=== PATIENT | female | born 1970 | race Two or more races ===

== ENCOUNTER 2023-04-03 08:33 | Outpatient (AMB) | payer OTHER, SELFPAY ==
--- NOTE | 2023-04-03 08:34 | A.OFFVIS_ITS ---
Intake Intake Visit Reasons: Renal Cyst Intake Note: New Patient presents for initial visit for renal cyst Urology Medications: none Blood Thinner: aspirin, clopidogrel Audio Production Engineer Required: Yes Audio Production Engineer Name: MANUEL MEDEIROS VIELKA Accompanied by: Spouse Allergies dulaglutide Allergy (Verified 04/03/23 11:39) pancreatitis morphine Allergy (Verified 04/03/23 11:39) headache, nausea, vomiting metformin Adverse Reaction (Verified 04/03/23 11:39) Diarrhea Medication List - Last Reconciled 04/03/23 by GORDON Sousa- buspirone 5 mg PO BID carvedilol 25 mg PO BID clopidogrel 75 mg PO DAILY dulaglutide (Trulicity) mg subcut empagliflozin (Jardiance) 10 mg PO DAILY escitalopram oxalate mg PO glipizide 10 mg PO DAILY insulin regular hum U-500 conc (Humulin R U-500 (Conc) Insulin Kwikpen) units subcut levothyroxine 88 mcg PO DAILY metoclopramide HCl 5 mg PO QID pantoprazole 40 mg PO DAILY pregabalin 75 mg PO TID valsartan mg PO HPI HPI Comments History of Present Illness Details Asia is a pleasant 52 year old Bhutanese speaking female patient of Dr. Cabezas who was accompanied by her significant other at today's office visit. She has a past medical history of obesity, recurrent incisional hernias, NSTEMI, insomnia, hypothyroidism, hypertension, hyperlipidemia, GERD, fibromyalgia, diabetes, CVA, coronary artery disease, and carpal tunnel syndrome. She presents to the office today as a new patient for renal cyst. Discussion with the patient today she reports previously following up with [facility] for her longstanding history of nephrolithiasis and renal cyst. In review of patient's chart it appears last MRI was obtain 09/23/2022 noting 1.4 cm complex left upper pole cystic renal lesion consistent with Bosniak 2 F cystic renal mass. Follow-up MRI recommended every 6 months to evaluate for morphologic changes. Patient reports follow-up MRI is scheduled for this Thursday 04/05 at [facility]. She discusses at length her uncontrolled diabetes in following up with her PCP for insulin pump. When asked she reports urinary frequency, urinary urgency, and episodes of incontinence if not near a bathroom. Discussed pelvic floor therapy. Patient reports to be performing pelvic floor therapy exercises at home. She otherwise denies nocturia, hematuria, dysuria, foul smelling urine, changes to urinary stream, flank pain, fever, and or chills. In office urinalysis results reviewed with the patient today. Discussed glucosuria and proteinuria. Will refer to Nephrology. Discussed at length renal cysts classification and importance of surveillance monitoring. [facility] Medical History delivery delivered Severe obesity (BMI 35.0-39.9) with comorbidity Recurrent incisional hernia Intraductal papilloma of right breast NSTEMI (non-ST elevated myocardial infarction) Insomnia Hypothyroid HTN (hypertension) HLD (hyperlipidemia) GERD (gastroesophageal reflux disease) Fibromyalgia Diabetes mellitus CVA (cerebral vascular accident) CTS (carpal tunnel syndrome) CAD (coronary artery disease) Surgical History (Updated 04/03/23 @ 11:15 by Tayler Oscar) History of hernia repair History of back surgery History of hysteroscopy S/P laparoscopy with lysis of adhesions History of total abdominal hysterectomy H/O heart surgery Stented coronary artery Review of Systems Eyes Reports no additional complaints ENT Reports no additional complaints Card Reports as per HPI Resp Reports no additional complaints GI Reports as per HPI Reports as per HPI Musc Reports as per HPI Neuro Reports as per HPI Psych Reports no additional complaints Endo Reports as per HPI Physical Exam Const General: cooperative, comfortable, no acute distress, well developed, alert and awake Nutritional Appearance: overweight Orientation/consciousness: patient oriented x3 Limitations: no limitations HEENT Head: Yes normal to inspection, Yes normocephalic and Yes atraumatic Ears: hearing grossly normal bilaterally Eyes General: appearance normal, both eyes and all related structures Neck Neck: Yes normal visual inspection and Yes trachea midline Chest Chest palpation & inspection: normal inspection of the chest Resp Effort & Inspection: normal respiratory effort and able to speak in complete sentences Cardio Rate: regular rate GI Inspection: Yes normal to inspection General: Yes no CVA tenderness Back/Spine/Pelvis Back: no CVA tenderness Skin General skin exam: no rashes or lesions noted Neuro General: patient oriented x3 Extrem General: Yes normal to inspection Psych Appearance: grossly normal and well kempt Mental Status: mental status grossly normal Speech and movement: Normal speech and movement present and Clear speech present Affect: normal affect Attitude: cooperative Thought process: Normal thought process present Thought content: Normal thought content present Insight: Fair insight present (Psych) Judgement: Fair judgement present (Psych) Results AMB Urinalysis, Automated UA Leukoctes 70 Annelise/uL Last Edit by Tayler Oscar on 04/03/23 11:08 UA Nitrite Negative Last Edit by Tayler Oscar on 04/03/23 11:08 UA Urobilinogen 0.2 mg/dL Last Edit by Tayler Oscar on 04/03/23 11:08 UA Protein 30 mg/dL Last Edit by Tayler Oscar on 04/03/23 11:08 UA pH 6.0 Last Edit by Tayler Oscar on 04/03/23 11:08 UA Blood 0 Albino/uL Last Edit by Tayler Oscar on 04/03/23 11:08 UA Specific [place] 1.030 Last Edit by Tayler Oscar on 04/03/23 11:08 UA Ketone Positive Last Edit by Tayler Oscar on 04/03/23 11:08 UA Bilirubin 1 mg/dL Last Edit by Tayler Oscar on 04/03/23 11:08 UA Glucose 500 mg/dL Last Edit by Tayler Oscar on 04/03/23 11:08 Results Reviewed Results Reviewed: Laboratory Last Values Urine pH (Auto) 6.0 04/03/23 10:59 Specific [place] (Auto) 1.030 04/03/23 10:59 Urine Protein (Auto) 30 mg/dL 04/03/23 10:59 Glucose (UA)(Auto) 500 mg/dL 04/03/23 10:59 Urine Ketones (Auto) Positive 04/03/23 10:59 Urine Blood (Auto) 0 Albino/uL 04/03/23 10:59 Urine Nitrite (Auto) Negative 04/03/23 10:59 Urine Bilirubin (Auto) 1 mg/dL 04/03/23 10:59 Urine Urobilinogen (Auto) 0.2 mg/dL 04/03/23 10:59 Leukocyte Esterase (Auto) 70 Annelise/uL 04/03/23 10:59 Assessment & Plan Assessment & Plan (1) Renal cyst: Code(s): N28.1 - Cyst of kidney, acquired (2) Renal mass: Code(s): N28.89 - Other specified disorders of kidney and ureter (3) Lower urinary tract symptoms: Code(s): R39.9 - Unspecified symptoms and signs involving the genitourinary system (4) Nephrolithiasis: Code(s): N20.0 - Calculus of kidney Plan In office urinalysis results reviewed with the patient today; as noted above; will refer to Nephrology Continue to follow-up with PCP for management of diabetes Discussed, stress, and encouraged to drink plenty of water daily Discussed and stressed the importance of managing diabetes for improvement lower urinary tract symptoms as well as overall health and well-being. Discussed continuation of pelvic floor therapy exercises at home Will follow-up in 2 weeks after MRI is completed for further assessment nikos luation. Discussed at length classifications of renal cysts and further surveillance monitoring and treatment options Follow-up in 2 weeks with MRI to be completed as scheduled; or sooner with any i ssues, concerns, and or questions. Orders: Orders AMB Urinalysis Automated Today Z13.9 - Encounter for screening, unspecified Referrals Nephrology Referral E11.9 - Type 2 diabetes mellitus without complications, R80.9 - Proteinuria, unspecified Patient Instructions: The patient had an opportunity to ask questions regarding the treatment plan. All questions were answered. Physical exam, labs, and imaging were discussed and reviewed in detail. As well as risks, benefits, and discussion of treatment choices. No major barriers to understanding were identified. The patient expressed understanding and agreement with the above treatment plan. The patient was made aware they should contact our office by phone for worsening of their current condition, the appearance of new symptoms, or with any questions or concerns. Compliance is encouraged with any medications and follow up testing that is ordered. It is a privilege to be allowed the opportunity to participate in? your urological care.? Again, if you have any questions or concerns If you have any questions or concerns please do not hesitate to contact me. The office is [phone]. This note is constructed using voice recognition software. While every effort has been made to ensure accuracy religious activities director errors may have been included. Yours sincerely, ELVIS Sousa Coding Level of Care Code New Pt Level 3 (87138) Diagnoses Renal cyst N28.1 Renal mass N28.89 Lower urinary tract symptoms R39.9 Nephrolithiasis N20.0
== END 2023-04-03 09:36 | disposition home or self-care (01) ==
PROVIDERS: PCP Family Medicine; Visit Provider Nurse Practitioner Family
DX: N28.1 Cyst of kidney, acquired (principal); N28.89 Other specified disorders of kidney and ureter; R39.9 Unspecified symptoms and signs involving the genitourinary system; N20.0 Calculus of kidney
CPT/HCPCS: 99203

== ENCOUNTER → 2023-04-03 08:33 | Outpatient (BNVA) | payer OTHER, SELFPAY | PROVIDERS: PCP Family Medicine; Visit Provider Nurse Practitioner Family | DX: N28.1 Cyst of kidney, acquired (principal); N20.0 Calculus of kidney; R39.9 Unspecified symptoms and signs involving the genitourinary system | CPT/HCPCS: 81003; 99202 ==

== ENCOUNTER 2023-04-18 13:08 | Outpatient (AMB) | payer OTHER, SELFPAY ==
--- NOTE | 2023-04-18 13:25 | A.OFFVIS_ITS ---
Intake Intake Visit Reasons: 2w/MRI Intake Note: Patient presents for follow up visit for renal cyst/MRI ([facility]) Urology Medications: none Blood Thinner: aspirin, clopidogrel Plant Operations Manager Required: No Accompanied by: Spouse Allergies dulaglutide Allergy (Verified 04/18/23 14:54) pancreatitis morphine Allergy (Verified 04/18/23 14:54) headache, nausea, vomiting metformin Adverse Reaction (Verified 04/18/23 14:54) Diarrhea Medication List - Last Reconciled 04/18/23 by VALERIANO SousaP- buspirone 5 mg PO BID carvedilol 25 mg PO BID clopidogrel 75 mg PO DAILY escitalopram oxalate mg PO glipizide 10 mg PO DAILY insulin regular hum U-500 conc (Humulin R U-500 (Conc) Insulin Kwikpen) units subcut levothyroxine 88 mcg PO DAILY metoclopramide HCl 5 mg PO QID pantoprazole 40 mg PO DAILY pregabalin 75 mg PO TID valsartan mg PO HPI HPI Comments History of Present Illness Details Asia is a pleasant 52 year old female patient of Dr. Cabezas who was accompanied by her significant other at today's office visit. She has a past medical history of obesity, recurrent incisional hernias, NSTEMI, insomnia, hypothyroidism, hypertension, hyperlipidemia, GERD, fibromyalgia, diabetes, CVA, coronary artery disease, and carpal tunnel syndrome. She presents to the office today for follow-up of her renal cyst. Of note, patient was seen approximately 3 weeks ago as a new patient for renal cyst at which time she underwent MRI for further assessment evaluation of her renal cyst. These results were reviewed with the patient today. Unchanged complex cystic lesion in the upper pole of the left kidney measuring up to 1.4 cm most compatible with a Bosniak 2 F lesion. Discussed surveillance monitoring. Patient discusses having previously followed up with [facility]. In review of patient's chart it appears MRI from 09/23/2022 noting 1.4 cm complex left upper pole cystic renal lesion consistent with Bosniak 2 F cystic renal lesion. Discussed imaging remains stable and recommendations are for surveillance monitoring every 6 months. She reports noting better control of her diabetes since her last office visit here approximately 2 weeks ago. During last office visit referral was made to Nephrology due to proteinuria however patient does not exhibit proteinuria on urinalysis today. She reports following up with Nephrology later this week. She otherwise denies any bothersome urinary issues or concerns. She denies nocturia, hematuria, dysuria, foul smelling urine, changes to urinary stream, flank pain, fever, and or chills. In office urinalysis results reviewed with the patient today. Will refer to Nephrology. Discussed at length renal cysts classification and importance of surveillance monitoring. [facility] Medical History (Reviewed 04/18/23 @ 15:12 by [facility] delivery delivered Severe obesity (BMI 35.0-39.9) with comorbidity Recurrent incisional hernia Intraductal papilloma of right breast NSTEMI (non-ST elevated myocardial infarction) Insomnia Hypothyroid HTN (hypertension) HLD (hyperlipidemia) GERD (gastroesophageal reflux disease) Fibromyalgia Diabetes mellitus CVA (cerebral vascular accident) CTS (carpal tunnel syndrome) CAD (coronary artery disease) Surgical History History of hernia repair History of back surgery History of hysteroscopy S/P laparoscopy with lysis of adhesions History of total abdominal hysterectomy H/O heart surgery Stented coronary artery Review of Systems Eyes Reports no additional complaints ENT Reports no additional complaints Card Reports as per HPI Resp Reports no additional complaints GI Reports as per HPI Reports as per HPI Musc Reports as per HPI Neuro Reports as per HPI Psych Reports no additional complaints Endo Reports as per HPI Physical Exam Const General: cooperative, comfortable, no acute distress, well developed, alert and awake Nutritional Appearance: overweight Orientation/consciousness: patient oriented x3 Limitations: no limitations HEENT Head: Yes normal to inspection, Yes normocephalic and Yes atraumatic Ears: hearing grossly normal bilaterally Eyes General: appearance normal, both eyes and all related structures Neck Neck: Yes normal visual inspection and Yes trachea midline Chest Chest palpation & inspection: normal inspection of the chest Resp Effort & Inspection: normal respiratory effort and able to speak in complete sentences Cardio Rate: regular rate GI Inspection: Yes normal to inspection General: Yes no CVA tenderness Back/Spine/Pelvis Back: no CVA tenderness Skin General skin exam: no rashes or lesions noted Neuro General: patient oriented x3 Extrem General: Yes normal to inspection Psych Appearance: grossly normal and well kempt Mental Status: mental status grossly normal Speech and movement: Normal speech and movement present and Clear speech present Affect: normal affect Attitude: cooperative Thought process: Normal thought process present Thought content: Normal thought content present Insight: Fair insight present (Psych) Judgement: Fair judgement present (Psych) Results AMB Urinalysis, Automated UA Leukoctes 0 Annelise/uL Last Edit by GameDuell on 04/18/23 13:42 UA Nitrite Positive Last Edit by GameDuell on 04/18/23 13:42 UA Urobilinogen 0.2 mg/dL Last Edit by GameDuell on 04/18/23 13:42 UA Protein 0 mg/dL Last Edit by GameDuell on 04/18/23 13:42 UA pH 5.5 Last Edit by GameDuell on 04/18/23 13:42 UA Blood 0 Albino/uL Last Edit by GameDuell on 04/18/23 13:42 UA Specific [place] 1.010 Last Edit by GameDuell on 04/18/23 13:42 UA Ketone Positive Last Edit by GameDuell on 04/18/23 13:42 UA Bilirubin 0 mg/dL Last Edit by GameDuell on 04/18/23 13:42 UA Glucose 1000 mg/dL Last Edit by GameDuell on 04/18/23 13:42 Results Reviewed Results Reviewed: Laboratory Last Values Urine pH (Auto) 5.5 04/18/23 13:31 Specific [place] (Auto) 1.010 04/18/23 13:31 Urine Protein (Auto) 0 mg/dL 04/18/23 13:31 Glucose (UA)(Auto) 1000 mg/dL 04/18/23 13:31 Urine Ketones (Auto) Positive 04/18/23 13:31 Urine Blood (Auto) 0 Albino/uL 04/18/23 13:31 Urine Nitrite (Auto) Positive 04/18/23 13:31 Urine Bilirubin (Auto) 0 mg/dL 04/18/23 13:31 Urine Urobilinogen (Auto) 0.2 mg/dL 04/18/23 13:31 Leukocyte Esterase (Auto) 0 Annelise/uL 04/18/23 13:31 Assessment & Plan Assessment & Plan (1) Nephrolithiasis: Code(s): N20.0 - Calculus of kidney (2) Renal mass: Code(s): N28.89 - Other specified disorders of kidney and ureter (3) Renal cyst: Code(s): N28.1 - Cyst of kidney, acquired (4) Lower urinary tract symptoms: Code(s): R39.9 - Unspecified symptoms and signs involving the genitourinary system Plan In office urinalysis results reviewed with the patient today; as noted above Discussed, stress, and encouraged to drink plenty of water daily. Discussed and stressed the importance of managing diabetes for improvement lower urinary tract symptoms as well as overall health and well-being. Discussed continuation of pelvic floor therapy exercises at home Renal ultrasound in 6 months Discussed at length classifications of renal cysts and further surveillance reubenтатьяна arguello and treatment options Follow-up in 6 months with imaging to be completed prior; or sooner with any issues, concerns, and or questions. Orders: Orders AMB Urinalysis Automated Today Z13.9 - Encounter for screening, unspecified US renal BI 6 Months N20.0 - Calculus of kidney, N28.1 - Cyst of kidney, acquired, N28.89 - Other specified disorders of kidney and ureter Patient Instructions: The patient had an opportunity to ask questions regarding the treatment plan. All questions were answered. Physical exam, labs, and imaging were discussed and reviewed in detail. As well as risks, benefits, and discussion of treatment choices. No major barriers to understanding were identified. The patient expressed understanding and agreement with the above treatment plan. The patient was made aware they should contact our office by phone for worsening of their current condition, the appearance of new symptoms, or with any questions or concerns. Compliance is encouraged with any medications and follow up testing that is ordered. It is a privilege to be allowed the opportunity to participate in? your urological care.? Again, if you have any questions or concerns If you have any questions or concerns please do not hesitate to contact me. The office is [phone]. This note is constructed using voice recognition software. While every effort has been made to ensure accuracy senior account executive errors may have been included. Yours sincerely, ELVIS Sousa Coding Level of Care Code Est Pt Level 3 (12970) Diagnoses Nephrolithiasis N20.0 Renal mass N28.89 Renal cyst N28.1 Lower urinary tract symptoms R39.9
== END 2023-04-18 14:11 | disposition home or self-care (01) ==
PROVIDERS: PCP Family Medicine; Visit Provider Nurse Practitioner Family
DX: N20.0 Calculus of kidney (principal); N28.89 Other specified disorders of kidney and ureter; N28.1 Cyst of kidney, acquired; R39.9 Unspecified symptoms and signs involving the genitourinary system; Z13.9 Encounter for screening, unspecified
CPT/HCPCS: 99213

== ENCOUNTER → 2023-04-18 13:08 | Outpatient (BNVA) | payer OTHER, SELFPAY | PROVIDERS: PCP Family Medicine; Visit Provider Nurse Practitioner Family | DX: N20.0 Calculus of kidney (principal); N28.89 Other specified disorders of kidney and ureter; N28.1 Cyst of kidney, acquired; R39.9 Unspecified symptoms and signs involving the genitourinary system | CPT/HCPCS: 81003; 99212 ==

== ENCOUNTER 2023-04-19 10:26 | Outpatient (AMB) | payer OTHER, SELFPAY ==
--- NOTE | 2023-04-19 10:33 | HO.NEPHOV ---
HPI HPI Comments History of Present Illness Details Asia is a pleasant middle-aged woman with a history of diabetes mellitus since 2004, referred for evaluation of proteinuria and renal cyst. Blood sugar has been suboptimally controlled. The last A1c was 10.2 back in June of 2022. She is waiting for a insulin pump in the next few weeks. She was seen by Urology recently for the renal cyst. MRA showed a cyst on the left kidney which is being evaluated. Routine workup revealed the dipstick positive proteinuria. She is on valsartan 80 mg the last few years. [facility] Medical History delivery delivered Severe obesity (BMI 35.0-39.9) with comorbidity Recurrent incisional hernia Intraductal papilloma of right breast NSTEMI (non-ST elevated myocardial infarction) Insomnia Hypothyroid HTN (hypertension) HLD (hyperlipidemia) GERD (gastroesophageal reflux disease) Fibromyalgia Diabetes mellitus CVA (cerebral vascular accident) CTS (carpal tunnel syndrome) CAD (coronary artery disease) Surgical History History of hernia repair History of back surgery History of hysteroscopy S/P laparoscopy with lysis of adhesions History of total abdominal hysterectomy H/O heart surgery Stented coronary artery Vital Signs 04/19/23 10:34 Height 5 ft 2 in Weight 201 lb BMI 36.8 BP 122/80 Blood Pressure Location Lt brachial Position Sitting Pulse 87 Pulse Source Pulse Oximeter Pulse Oximetry (%) 98 Oxygen Delivery Method Room Air Physical Exam Vital Signs: Last Vital Signs Pulse 87 04/19/23 10:34 BP 122/80 04/19/23 10:34 Pulse Ox 98 04/19/23 10:34 Oxygen Delivery Method Room Air 04/19/23 10:34 BMI result Body Mass Index 36.8 Const General: comfortable Nutritional Appearance: well nourished Orientation/consciousness: patient oriented x3 HEENT Head: No normal to inspection Mouth: moist mucous membranes Neck Neck: Yes supple and Yes no JVD Resp Auscultation: clear to auscultation bilaterally, no rales and rub present Cardio Jugular venous distension: no JVD Palpation: no palpable S3 and no palpable S4 Heart sounds: no rubs GI Palpation (GI): Soft to palpation and nontender Percussion: No Fluid wave present General: Yes no CVA tenderness Back/Spine/Pelvis Back: no CVA tenderness Skin General skin exam: no rashes or lesions noted Neuro General: patient oriented x3 Extrem General: Yes no pedal edema and No clubbing Assessment & Plan Assessment & Plan (1) Renal cyst: Code(s): N28.1 - Cyst of kidney, acquired (2) Proteinuria: Code(s): R80.9 - Proteinuria, unspecified Plan Middle-aged woman with a longstanding history of diabetes mellitus and obesity has minimal proteinuria. Proteinuria is most likely due to underlying diabetic kidney disease. Obesity could also be playing a role. No renal function stable with a serum creatinine 0.6 mg/dL. The goal is to slow the progression of renal disease. I have discussed importance of controlling blood sugar and to maintain hemoglobin A1c less than 7%. We also discussed weight loss and have encouraged her to increase her physical activity and to cut back on her carbohydrate intake. I will recheck the urine for protein creatinine ratio. At this time the blood pressure seems well controlled. She should stay on alow-sodium diet. I would continue with the valsartan for renal protection and dose can be titrated upwards gradually based on the blood pressure. Renal cyst. Continue follow-up with Urology Answered all her questions and reassured her. We will continue to follow her closely along with the team. Orders: Orders Creatinine 6 Weeks N28.1 - Cyst of kidney, acquired, R80.9 - Proteinuria, unspecified Total Protein Urine Random 6 Weeks N28.1 - Cyst of kidney, acquired, R80.9 - Proteinuria, unspecified Electrolytes 6 Weeks N28.1 - Cyst of kidney, acquired, R80.9 - Proteinuria, unspecified Blood Urea Nitrogen 6 Weeks N28.1 - Cyst of kidney, acquired, R80.9 - Proteinuria, unspecified Calcium 6 Weeks N28.1 - Cyst of kidney, acquired, R80.9 - Proteinuria, unspecified Creatinine Urine 6 Weeks N28.1 - Cyst of kidney, acquired, R80.9 - Proteinuria, unspecified UA and rflx microscopic 6 Weeks N28.1 - Cyst of kidney, acquired, R80.9 - Proteinuria, unspecified Coding Level of Care Code New Pt Level 4 (26761) Diagnoses Renal cyst N28.1 Proteinuria R80.9 Results Reviewed Results Reviewed: MRA results from March 2023 was reviewed. Left kidney with complex cyst Recent serum creatinine 0.6. Serum electrolyte with normal. Nephrology Results: No Data to Display
[2023-04-19 10:34] VITALS: BP 122/80; PULSE 87; O2SAT 98; BMI 36.8
== END 2023-04-19 11:06 | disposition home or self-care (01) ==
PROVIDERS: PCP Family Medicine; Visit Provider Internal Medicine Hypertension Specialist
DX: N28.1 Cyst of kidney, acquired (principal); R80.9 Proteinuria, unspecified
CPT/HCPCS: 99204

== ENCOUNTER → 2023-04-19 10:26 | Outpatient (BNVA) | payer OTHER, SELFPAY | PROVIDERS: PCP Family Medicine; Visit Provider Internal Medicine Hypertension Specialist | DX: N28.1 Cyst of kidney, acquired (principal); R80.9 Proteinuria, unspecified | CPT/HCPCS: 99202 ==

== ENCOUNTER 2023-06-07 10:37 | Outpatient (AMB) | payer OTHER, SELFPAY ==
[2023-06-07 10:56] VITALS: BP 122/80; PULSE 80; O2SAT 97; BMI 36.6
--- NOTE | 2023-06-07 10:56 | HO.NEPHOV_ITS ---
HPI HPI Comments History of Present Illness Details Asia is a pleasant middle-aged woman with a history of diabetes mellitus since 2004, referred for evaluation of proteinuria and renal cyst. Blood sugar has been suboptimally controlled. The last A1c was 10.2 back in June of 2022. She is waiting for a insulin pump in the next few weeks. She was seen by Urology recently for the renal cyst. MRi showed a cyst on the left kidney which is being evaluated. Routine workup revealed the dipstick positive proteinuria. She is on valsartan 80 mg the last few years. [facility] Medical History delivery delivered Severe obesity (BMI 35.0-39.9) with comorbidity Recurrent incisional hernia Intraductal papilloma of right breast NSTEMI (non-ST elevated myocardial infarction) Insomnia Hypothyroid HTN (hypertension) HLD (hyperlipidemia) GERD (gastroesophageal reflux disease) Fibromyalgia Diabetes mellitus CVA (cerebral vascular accident) CTS (carpal tunnel syndrome) CAD (coronary artery disease) Surgical History History of hernia repair History of back surgery History of hysteroscopy S/P laparoscopy with lysis of adhesions History of total abdominal hysterectomy H/O heart surgery Stented coronary artery Social History (Updated 06/07/23 @ 11:04 by Irene Santana) Alcohol intake: former Patient Tobacco Use Status: Former Tobacco user Vital Signs 06/07/23 10:56 Height 5 ft 2 in Weight 200 lb BMI 36.6 BP 122/80 Blood Pressure Location Lt brachial Position Sitting Pulse 80 Pulse Source Pulse Oximeter Pulse Oximetry (%) 97 Oxygen Delivery Method Room Air Physical Exam Vital Signs: Last Vital Signs Pulse 80 06/07/23 10:56 BP 122/80 06/07/23 10:56 Pulse Ox 97 06/07/23 10:56 Oxygen Delivery Method Room Air 06/07/23 10:56 BMI result Body Mass Index 36.6 Const General: comfortable Nutritional Appearance: well nourished Orientation/consciousness: patient oriented x3 HEENT Head: No normal to inspection Mouth: moist mucous membranes Neck Neck: Yes supple and Yes no JVD Resp Auscultation: clear to auscultation bilaterally, no rales and rub present Cardio Jugular venous distension: no JVD Palpation: no palpable S3 and no palpable S4 Heart sounds: no rubs GI Palpation (GI): Soft to palpation and nontender Percussion: No Fluid wave present General: Yes no CVA tenderness Back/Spine/Pelvis Back: no CVA tenderness Skin General skin exam: no rashes or lesions noted Neuro General: patient oriented x3 Extrem General: Yes no pedal edema and No clubbing Assessment & Plan Assessment & Plan (1) Renal cyst: Code(s): N28.1 - Cyst of kidney, acquired (2) Proteinuria: Code(s): R80.9 - Proteinuria, unspecified Plan Middle-aged woman with a longstanding history of diabetes mellitus and obesity has minimal proteinuria. Minimal Proteinuria is most likely due to underlying diabetic kidney disease. Obesity could also be playing a role. The renal function stable with a serum creatinine 0.6 mg/dL. The goal is to slow the progression of renal disease. I have discussed importance of controlling blood sugar and to maintain hemoglobin A1c less than 7%. We also discussed weight loss and have encouraged her to increase her physical activity and to cut back on her carbohydrate intake. Follow urine for protein creatinine ratio. At this time the blood pressure seems well controlled. She should stay on a low-sodium diet. I would continue with the valsartan for renal protection and dose can be titrated upwards gradually based on the blood pressure. Renal cyst. Continue follow-up with Urology We will continue to follow her closely along with the team. Orders: Orders Creatinine 6 Months N20.0 - Calculus of kidney, N28.1 - Cyst of kidney, acquired UA and rflx microscopic 6 Months N20.0 - Calculus of kidney, N28.1 - Cyst of kidney, acquired Electrolytes 6 Months N20.0 - Calculus of kidney, N28.1 - Cyst of kidney, acquired Blood Urea Nitrogen 6 Months N20.0 - Calculus of kidney, N28.1 - Cyst of kidney, acquired Calcium 6 Months N20.0 - Calculus of kidney, N28.1 - Cyst of kidney, acquired Total Protein Urine Random 6 Months N20.0 - Calculus of kidney, N28.1 - Cyst of kidney, acquired Creatinine Urine 6 Months N20.0 - Calculus of kidney, N28.1 - Cyst of kidney, acquired Urine Cytology 6 Months N20.0 - Calculus of kidney, N28.1 - Cyst of kidney, acquired Coding Level of Care Code Est Pt Level 4 (75590) Diagnoses Renal cyst N28.1 Proteinuria R80.9 Results Reviewed Nephrology Results: No Data to Display
== END 2023-06-07 11:13 | disposition home or self-care (01) ==
PROVIDERS: PCP Family Medicine; Visit Provider Internal Medicine Hypertension Specialist
DX: N28.1 Cyst of kidney, acquired (principal); R80.9 Proteinuria, unspecified
CPT/HCPCS: 99214

== ENCOUNTER → 2023-06-07 10:37 | Outpatient (BNVA) | payer OTHER, SELFPAY | PROVIDERS: PCP Family Medicine; Visit Provider Internal Medicine Hypertension Specialist | DX: R80.9 Proteinuria, unspecified (principal); N28.1 Cyst of kidney, acquired; E11.9 Type 2 diabetes mellitus without complications | CPT/HCPCS: 99212 ==

== ENCOUNTER 2023-10-11 10:42 | Outpatient (REF) | payer OTHER, SELFPAY ==
--- NOTE | ~2023-10-11 | US_ITS ---
EXAMINATION: US RETROPERITONEAL LIMITED (RENAL ONLY) CLINICAL INFORMATION: Calculus of kidney. COMPARISON: None available. TECHNIQUE: Real-time imaging of the kidneys. FINDINGS: RIGHT KIDNEY: 13.7 x 5.3 x 5.7 cm (SAG x AP x TRV). The kidney is normal in size, contour, and echogenicity. Renal cortical thickness is normal. No calculi or focal parenchymal lesions. No hydronephrosis. There is a 0.4 x 0.6 x 0.6 cm echogenic focus in the cortex of the medial mid kidney which may represent a small angiomyolipoma. LEFT KIDNEY: 12.3 x 6.0 x 6.2 cm (SAG x AP x TRV). The kidney is normal in size, contour, and echogenicity. Renal cortical thickness is normal. No calculi or focal parenchymal lesions. No hydronephrosis. US/US renal BI IMPRESSION: 1. 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 Follow-up in 6 months could be performed to confirm stability of this finding. 2. Normal appearance of the left kidney.
== END 2023-10-11 10:43 | disposition home or self-care (01) ==
LOC: HO.US 10:42
PROVIDERS: PCP Family Medicine; Visit Provider Nurse Practitioner Family
DX: N20.0 Calculus of kidney (principal); N28.89 Other specified disorders of kidney and ureter; N28.1 Cyst of kidney, acquired
CPT/HCPCS: 76775

== ENCOUNTER 2023-10-16 09:29 | Outpatient (AMB) | payer OTHER, SELFPAY ==
--- NOTE | 2023-10-16 10:11 | A.OFFVIS_ITS ---
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 Accompanied by: Spouse Allergies dulaglutide Allergy (Verified 10/16/23 19:41) pancreatitis morphine Allergy (Verified 10/16/23 19:41) headache, nausea, vomiting metformin Adverse Reaction (Verified 10/16/23 19:41) Diarrhea Medication List - Last Reconciled 10/16/23 by GORDON Sousa- albuterol sulfate mg inhalation amitriptyline mg PO amlodipine 2.5 mg PO DAILY aspirin (Adult Low Dose Aspirin) 81 mg PO DAILY atorvastatin 80 mg PO DAILY blood-glucose sensor ([employer] G7 Sensor device) As directed buspirone 15 mg PO TID carvedilol 25 mg PO BID clopidogrel 75 mg PO DAILY duloxetine 120 mg PO DAILY escitalopram oxalate mg PO flash glucose sensor ([employer] Prateek 14 Day Sensor kit) As directed glipizide 10 mg PO DAILY insulin regular hum U-500 conc (Humulin R U-500 (Conc) Insulin Kwikpen) units subcut levothyroxine 88 mcg PO DAILY lidocaine 5% 1 patch topical DAILY melatonin 3 mg PO BEDTIME metoclopramide HCl 5 mg PO QID nitroglycerin 0.4 mg sublingual DAILY pantoprazole 40 mg PO DAILY pregabalin 75 mg PO TID trazodone 50 mg PO BEDTIME valsartan mg PO HPI Comments Details: Asia is a pleasant 53 year old female patient of Dr. Cabezas who was accompanied by her significant other at today's office visit. She has a past medical history of obesity, recurrent incisional hernias, NSTEMI, insomnia, hypothyroidism, hypertension, hyperlipidemia, GERD, fibromyalgia, diabetes, CVA, coronary artery disease, and carpal tunnel syndrome. She presents to the office today for follow-up of her renal cyst. In discussion with the patient today she reports continuing to follow-up with her PCP for uncontrolled blood sugars and ongoing left-sided upper quadrant pain she has been experiencing that radiates to her left flank area. Recent renal imaging results reviewed with the patient today. 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 Follow-up in 6 months could be performed to confirm stability of this finding. Normal appearance of left kidney. 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 Patient reporting left-sided upper quadrant pain that radiates to left flank area. No CVA tenderness noted bilaterally. Discussed obtaining CT for further assessment evaluation given patient's symptoms. She otherwise denies any bothersome urinary issues or concerns. She denies urinary urgency, urinary frequency, incontinence, nocturia, hematuria, dysuria, foul smelling urine, changes to urinary stream, fever, and or chills. She is happy with her current voiding parameters. Discussed at length renal cysts classification and importance of surveillance monitoring. In office urinalysis results reviewed with the patient today. 3+ glucosuria otherwise within normal limits. She otherwise offers no other issues or concerns at this time. [facility] Medical History delivery delivered Severe obesity (BMI 35.0-39.9) with comorbidity Recurrent incisional hernia Intraductal papilloma of right breast NSTEMI (non-ST elevated myocardial infarction) Insomnia Hypothyroid HTN (hypertension) HLD (hyperlipidemia) GERD (gastroesophageal reflux disease) Fibromyalgia Diabetes mellitus CVA (cerebral vascular accident) CTS (carpal tunnel syndrome) CAD (coronary artery disease) Surgical History History of hernia repair History of back surgery History of hysteroscopy S/P laparoscopy with lysis of adhesions History of total abdominal hysterectomy H/O heart surgery Stented coronary artery Social History Alcohol intake: former Patient Tobacco Use Status: Former Tobacco user Review of Systems Eyes Reports no additional complaints ENT Reports no additional complaints Card Reports as per HPI Resp Reports no additional complaints GI Reports as per HPI Reports as per HPI Musc Reports as per HPI Neuro Reports as per HPI Psych Reports no additional complaints Endo Reports as per HPI Physical Exam Const General: cooperative, healthy appearing, comfortable, no acute distress, well developed, alert and awake Nutritional Appearance: overweight Orientation/consciousness: patient oriented x3 Limitations: no limitations HEENT Head: Yes normal to inspection, Yes normocephalic and Yes atraumatic Ears: hearing grossly normal bilaterally Eyes General: appearance normal, both eyes and all related structures Neck Neck: Yes normal visual inspection and Yes trachea midline Chest Chest palpation & inspection: normal inspection of the chest Resp Effort & Inspection: normal respiratory effort and able to speak in complete sentences Cardio Rate: regular rate GI Inspection: Yes normal to inspection General: Yes no CVA tenderness Back/Spine/Pelvis Back: no CVA tenderness Skin General skin exam: no rashes or lesions noted Neuro General: patient oriented x3 Extrem General: Yes normal to inspection Psych Appearance: grossly normal and well kempt Mental Status: mental status grossly normal Speech and movement: Normal speech and movement present and Clear speech present Affect: normal affect Attitude: cooperative Thought process: Normal thought process present Thought content: Normal thought content present Insight: Fair insight present (Psych) Judgement: Fair judgement present (Psych) Results AMB Urinalysis, Automated UA Leukoctes 0 Annelise/uL Last Edit by [employer] on 10/16/23 10:23 UA Nitrite Negative Last Edit by [employer] on 10/16/23 10:23 UA Urobilinogen 0.2 mg/dL Last Edit by [employer] on 10/16/23 10:23 UA Protein 15 mg/dL Last Edit by [employer] on 10/16/23 10:23 UA pH 6.0 Last Edit by [employer] on 10/16/23 10:23 UA Blood 0 Albino/uL Last Edit by [employer] on 10/16/23 10:23 UA Specific [place] 1.010 Last Edit by [employer] on 10/16/23 10:23 UA Ketone Negative Last Edit by [employer] on 10/16/23 10:23 UA Bilirubin 0 mg/dL Last Edit by [employer] on 10/16/23 10:23 UA Glucose 1000 mg/dL Last Edit by [employer] on 10/16/23 10:23 Results Reviewed Results Reviewed: Laboratory Last Values Urine pH (Auto) 6.0 10/16/23 10:22 Specific [place] (Auto) 1.010 10/16/23 10:22 Urine Protein (Auto) 15 mg/dL 10/16/23 10:22 Glucose (UA)(Auto) 1000 mg/dL 10/16/23 10:22 Urine Ketones (Auto) Negative 10/16/23 10:22 Urine Blood (Auto) 0 Albino/uL 10/16/23 10:22 Urine Nitrite (Auto) Negative 10/16/23 10:22 Urine Bilirubin (Auto) 0 mg/dL 10/16/23 10:22 Urine Urobilinogen (Auto) 0.2 mg/dL 10/16/23 10:22 Leukocyte Esterase (Auto) 0 Anenlise/uL 10/16/23 10:22 Date of Service: 10/11/23 EXAMINATION: US RETROPERITONEAL LIMITED (RENAL ONLY) FINDINGS: RIGHT KIDNEY: 13.7 x 5.3 x 5.7 cm (SAG x AP x TRV). The kidney is normal in size, contour, and echogenicity. Renal cortical thickness is normal. No calculi or focal parenchymal lesions. No hydronephrosis. There is a 0.4 x 0.6 x 0.6 cm echogenic focus in the cortex of the medial mid kidney which may represent a small angiomyolipoma. LEFT KIDNEY: 12.3 x 6.0 x 6.2 cm (SAG x AP x TRV). The kidney is normal in size, contour, and echogenicity. Renal cortical thickness is normal. No calculi or focal parenchymal lesions. No hydronephrosis. IMPRESSION: 1. 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 Follow-up in 6 months could be performed to confirm stability of this finding. 2. Normal appearance of the left kidney. 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 Recent renal imaging results reviewed with the patient today; as noted above. Will obtain CT renal mass protocol for further assessment evaluation. BUN and creatinine ordered for imaging. Discussed, educated, and stressed the importance of glucose control for overall health and well-being. Patient currently denies any bothersome urinary issues or concerns. She reports be happy with current voiding parameters. Follow-up in 1-2 months with imaging and labs to be completed prior; or sooner with any issues, concerns, and or questions. Orders: Orders AMB Urinalysis Automated Today Z13.9 - Encounter for screening, unspecified Creatinine Today N28.1 - Cyst of kidney, acquired, N28.89 - Other specified disorders of kidney and ureter CT abdomen pelvis wo/w IV con Today N28.1 - Cyst of kidney, acquired, N28.89 - Other specified disorders of kidney and ureter Blood Urea Nitrogen Today N28.1 - Cyst of kidney, acquired, N28.89 - Other specified disorders of kidney and ureter Patient Instructions: The patient had an opportunity to ask questions regarding the treatment plan. All questions were answered. Physical exam, labs, and imaging were discussed and reviewed in detail. As well as risks, benefits, and discussion of treatment choices. No major barriers to understanding were identified. The patient expressed understanding and agreement with the above treatment plan. The patient was made aware they should contact our office by phone for worsening of their current condition, the appearance of new symptoms, or with any questions or concerns. Compliance is encouraged with any medications and follow up testing that is ordered. It is a privilege to be allowed the opportunity to participate in? your urological care.? Again, if you have any questions or concerns If you have any questions or concerns please do not hesitate to contact me. The office is [phone]. This note is constructed using voice recognition software. While every effort has been made to ensure accuracy supervisor testing errors may have been included. Yours sincerely, ELVIS Sousa Coding Level of Care Code Est Pt Level 4 (65288) Diagnoses Renal cyst N28.1 Renal mass N28.89 Angiolipoma D17.9 Flank pain R10.9 Time Spent (min) 25
== END 2023-10-16 10:46 | disposition home or self-care (01) ==
PROVIDERS: PCP Family Medicine; Visit Provider Nurse Practitioner Family
DX: N28.1 Cyst of kidney, acquired (principal); N28.89 Other specified disorders of kidney and ureter; D17.9 Benign lipomatous neoplasm, unspecified; R10.9 Unspecified abdominal pain; Z13.9 Encounter for screening, unspecified
CPT/HCPCS: 99214

== ENCOUNTER → 2023-10-16 09:29 | Outpatient (BNVA) | payer OTHER, SELFPAY | PROVIDERS: PCP Family Medicine; Visit Provider Nurse Practitioner Family | DX: N28.1 Cyst of kidney, acquired (principal); N28.89 Other specified disorders of kidney and ureter; R10.9 Unspecified abdominal pain; D17.9 Benign lipomatous neoplasm, unspecified | CPT/HCPCS: 81003; 99212 ==

== ENCOUNTER 2023-12-06 11:15 | Outpatient (AMB) | payer OTHER, SELFPAY ==
--- NOTE | 2023-12-06 11:21 | HO.NEPHOV ---
Vital Signs 12/06/23 11:22 12/06/23 11:34 Height 5 ft 2 in BP 132/90 H 130/84 Blood Pressure Location Lt brachial Lt brachial Position Sitting Sitting Pulse 82 Pulse Source Pulse Oximeter Pulse Oximetry (%) 97 Oxygen Delivery Method Room Air Intake Visit Reasons: 6 mon follow up/ Conf Legal Technician Required: No Accompanied by: Spouse Allergies dulaglutide Allergy (Verified 12/06/23 11:24) pancreatitis morphine Allergy (Verified 12/06/23 11:24) headache, nausea, vomiting metformin Adverse Reaction (Verified 12/06/23 11:24) Diarrhea Medication List - Last Reconciled 12/06/23 by Freedom Leiva MD albuterol sulfate mg inhalation amitriptyline mg PO amlodipine 2.5 mg PO DAILY aspirin (Adult Low Dose Aspirin) 81 mg PO DAILY atorvastatin 80 mg PO DAILY blood-glucose sensor ([employer] G7 Sensor device) As directed buspirone 30 mg PO BID carvedilol 25 mg PO BID clopidogrel 75 mg PO DAILY duloxetine 120 mg PO DAILY escitalopram oxalate mg PO flash glucose sensor ([employer] Prateek 14 Day Sensor kit) As directed glipizide 10 mg PO DAILY insulin regular hum U-500 conc (Humulin R U-500 (Conc) Insulin Kwikpen) units subcut levothyroxine 88 mcg PO DAILY lidocaine 5% 1 patch topical DAILY melatonin 3 mg PO BEDTIME metoclopramide HCl 5 mg PO QID nitroglycerin 0.4 mg sublingual DAILY pantoprazole 40 mg PO DAILY pregabalin 75 mg PO TID trazodone 50 mg PO BEDTIME valsartan mg PO HPI Comments Details: Asia is a pleasant middle-aged woman with a history of diabetes mellitus since 2004, referred for evaluation of proteinuria and renal cyst. Blood sugar has been suboptimally controlled. The last A1c was 10.2 back in June of 2022. She is waiting for a insulin pump in the next few weeks. She was seen by Urology recently for the renal cyst. MRi showed a cyst on the left kidney which is being evaluated. Routine workup revealed the dipstick positive proteinuria. She is on valsartan 80 mg the last few years. [facility] Medical History delivery delivered Severe obesity (BMI 35.0-39.9) with comorbidity Recurrent incisional hernia Intraductal papilloma of right breast NSTEMI (non-ST elevated myocardial infarction) Insomnia Hypothyroid HTN (hypertension) HLD (hyperlipidemia) GERD (gastroesophageal reflux disease) Fibromyalgia Diabetes mellitus CVA (cerebral vascular accident) CTS (carpal tunnel syndrome) CAD (coronary artery disease) Surgical History History of hernia repair History of back surgery History of hysteroscopy S/P laparoscopy with lysis of adhesions History of total abdominal hysterectomy H/O heart surgery Stented coronary artery Social History Alcohol intake: former Patient Tobacco Use Status: Former Tobacco user Physical Exam Vital Signs: Last Vital Signs Pulse 82 12/06/23 11:22 BP 132/90 H 12/06/23 11:22 Pulse Ox 97 12/06/23 11:22 Oxygen Delivery Method Room Air 12/06/23 11:22 Const General: comfortable; No acute distress Orientation/consciousness: patient oriented x3 Eyes General: appearance normal, both eyes and all related structures Visual Leggett: normal visual leggett by confrontation Neck Neck: Yes supple and Yes no JVD Resp Effort & Inspection: normal respiratory effort and respiratory effort not decreased Auscultation: rhonchi Cardio Palpation: no palpable S3 and no palpable S4 Heart sounds: no rubs GI Inspection: Yes normal to inspection Palpation (GI): Soft to palpation Percussion: Yes normal to percussion Auscultation: normal bowel sounds General: Yes no CVA tenderness Back/Spine/Pelvis Back: no CVA tenderness Skin General skin exam: no petechiae and no purpura Neuro General: patient oriented x3 and no focal motor deficits Extrem General: No clubbing and No edema Results Reviewed Nephrology Results: Renal US 10/11/23 Assessment & Plan Assessment & Plan (1) Nephrolithiasis: Code(s): N20.0 - Calculus of kidney Category: Medical (2) Fibromyalgia: Code(s): M79.7 - Fibromyalgia Category: Medical (3) Renal cyst: Code(s): N28.1 - Cyst of kidney, acquired Category: Medical (4) Proteinuria: Code(s): R80.9 - Proteinuria, unspecified Category: Medical Plan Middle-aged woman with a longstanding history of diabetes mellitus and obesity has minimal proteinuria. Minimal Proteinuria is most likely due to underlying diabetic kidney disease. Obesity could also be playing a role. The renal function stable with a serum creatinine 0.6 mg/dL. The goal is to slow the progression of renal disease. I have discussed importance of controlling blood sugar and to maintain hemoglobin A1c less than 7%. We also discussed weight loss and have encouraged her to increase her physical activity and to cut back on her carbohydrate intake. Follow urine for protein creatinine ratio. At this time the blood pressure seems well controlled. She should stay on a low-sodium diet. I would continue with the valsartan for renal protection and dose can be titrated upwards gradually based on the blood pressure. Renal cyst. Continue follow-up with Urology At her request, will refer to Rheumatology for fibromyalgia Orders: Orders Creatinine Urine 6 Months N20.0 - Calculus of kidney Total Protein Urine Random 6 Months N20.0 - Calculus of kidney UA and rflx microscopic 6 Months N20.0 - Calculus of kidney Referrals Rheumatology Referral M79.7 - Fibromyalgia Coding Level of Care Code Est Pt Level 3 (84022) Diagnoses Nephrolithiasis N20.0 Fibromyalgia M79.7 Renal cyst N28.1 Proteinuria R80.9
[2023-12-06 11:22] VITALS: BP 132/90; PULSE 82; O2SAT 97
[2023-12-06 11:34] VITALS: BP 130/84
== END 2023-12-06 11:39 | disposition home or self-care (01) ==
PROVIDERS: PCP Family Medicine; Visit Provider Internal Medicine Hypertension Specialist
DX: N20.0 Calculus of kidney (principal); M79.7 Fibromyalgia; N28.1 Cyst of kidney, acquired; R80.9 Proteinuria, unspecified
CPT/HCPCS: 99213

== ENCOUNTER → 2023-12-06 11:15 | Outpatient (BNVA) | payer OTHER, SELFPAY | PROVIDERS: PCP Family Medicine; Visit Provider Internal Medicine Hypertension Specialist | DX: R80.9 Proteinuria, unspecified (principal); N28.1 Cyst of kidney, acquired; N20.0 Calculus of kidney; M79.7 Fibromyalgia | CPT/HCPCS: 99212 ==

== ENCOUNTER 2024-01-01 10:28 | Outpatient (REF) | payer OTHER, SELFPAY ==
--- NOTE | ~2024-01-01 | CT_ITS ---
EXAMINATION: CT ABDOMEN AND PELVIS WITHOUT AND WITH CONTRAST CLINICAL INFORMATION: Other specified disorders of the kidney and ureter, renal mass protocol. COMPARISON: Renal ultrasound 10/11/2023: 0.6 cm echogenic focus in the cortex of the medial mid right kidney which may represent a small angiomyolipoma. Follow-up in 6 months could be performed to confirm stability of this finding. TECHNIQUE: Multidetector volumetric imaging was performed of the abdomen and pelvis before and after the IV administration of 85 mL of Omnipaque 350 intravenous contrast. Sagittal and coronal reformatted images were obtained on the technologist's workstation. This CT examination was performed using dose optimization techniques as appropriate, variously including the following: *Automated exposure control *Adjustment of mA and/or kV according to patient size (this includes techniques or standardized protocols for targeted exams where dose is matched to indication/reason for exam; i.e. extremities or head) *Use of iterative reconstruction technique DLP: 994 mGy-cm FINDINGS: LUNG BASES: The visualized lung bases are unremarkable. LIVER, GALLBLADDER, AND BILIARY TREE: The liver is normal in size, shape, and attenuation. No focal hepatic lesion or biliary ductal dilatation is present. The gallbladder is unremarkable with no evidence of radiopaque gallstones, gallbladder wall thickening, or obvious pericholecystic inflammatory changes. PANCREAS: Unremarkable. SPLEEN: Unremarkable. ADRENAL GLANDS: Unremarkable. KIDNEYS AND URETERS: The kidneys are normal in size, shape, and attenuation. There is a 4 mm nonobstructing left lower pole renal calculus present. No hydronephrosis, hydroureter, or additional calculi seen. No perinephric stranding. In the area of concern in the right kidney, on the contrast enhanced study only, there is a 5 mm hypodensity seen which is likely a small renal angiomyolipoma but because of its tiny size and partial volume averaging, this diagnosis cannot be made with certainty. In the mid left kidney at about 1 o'clock, there is a rounded hypoattenuating area seen measuring 1.7 x 1.8 x 1.4 cm (7:61 and 6:31) and about 53 Hounsfield units on postcontrast scans. On the noncontrast imaging this is isoattenuating with the renal parenchyma and not really visible. This was also not visible on the patient's prior ultrasound. There are a few other even smaller hypodensities seen that are beyond the resolution of the exam. BLADDER: Unremarkable. GASTROINTESTINAL TRACT: The small and large bowel are unremarkable. The appendix is unremarkable. ABDOMINAL WALL: No significant hernia is appreciated. Scarring anterior abdominal wall likely from prior surgery. Injection granulomas are present. LYMPH NODES: No retroperitoneal lymphadenopathy. VASCULAR: Calcific atherosclerotic changes are present in the aorta and iliofemoral vessels. There is no evidence of an abdominal aortic aneurysm. PELVIC VISCERA: Unremarkable. Suspect hysterectomy. Correlate with surgical history. OSSEOUS STRUCTURES: Mild degenerative changes seen most marked at L4-L5. No bony destructive lesions. CT/CT abdomen pelvis wo/w IV con IMPRESSION: 1. The area of concern in the right kidney appears to be a 5 mm hypodensity which is likely a small angiomyolipoma but because of its tiny size and partial volume averaging, this diagnosis cannot be made with certainty. 2. There is a 1.8 cm mass in the left kidney which is not really visible on the noncontrast imaging. This could represent a complex cyst. Ultrasound has already been performed and this was not visible. 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 3. Other incidental findings as described above. Fleischner guidelines were followed. Electronically signed by: Shon Combs MD 01/12/2024 09:43 PM EDT
[2024-01-01 11:05] LABS: Blood Urea Nitrogen 12 mg/dL (9-16); Estimated Glomerular Filt Rate > 60
[2024-01-01] MEDS: iohexoL 350 MG/ML 100 ML INFUS..BTL IV (11:38)
== END 2024-01-01 10:29 | disposition home or self-care (01) ==
LOC: HO.CT 10:28
PROVIDERS: PCP Family Medicine; Visit Provider Nurse Practitioner Family
DX: N28.89 Other specified disorders of kidney and ureter (principal); N28.1 Cyst of kidney, acquired
CPT/HCPCS: 36415; 74178; 82565; 84520; Q9967

== ENCOUNTER 2024-01-30 12:00 | Outpatient (AMB) | payer OTHER, SELFPAY ==
--- NOTE | 2024-01-30 12:43 | A.OFFVIS_ITS ---
Intake Visit Reasons: 2m/CT/labs(set) Intake Note: Patient presents today for follow up on: Renal mass, renal cyst, nephrolithiasis, and ct scan results Imaging Completed: 01/01/24 Urology Medications: none Blood Thinner: aspirin, clopidogrel Cancer Genetics Assistant Required: No Accompanied by: Spouse Allergies dulaglutide Allergy (Verified 01/30/24 15:50) pancreatitis morphine Allergy (Verified 01/30/24 15:50) headache, nausea, vomiting metformin Adverse Reaction (Verified 01/30/24 15:50) Diarrhea Medication List - Last Reconciled 01/30/24 by GORDON Sousa- albuterol sulfate mg inhalation amitriptyline mg PO amlodipine 2.5 mg PO DAILY aspirin (Adult Low Dose Aspirin) 81 mg PO DAILY atorvastatin 80 mg PO DAILY blood-glucose sensor ([email or web address] G7 Sensor device) As directed buspirone 30 mg PO BID carvedilol 25 mg PO BID clopidogrel 75 mg PO DAILY duloxetine 120 mg PO DAILY escitalopram oxalate mg PO flash glucose sensor ([employer] Prateek 14 Day Sensor kit) As directed glipizide 10 mg PO DAILY insulin regular hum U-500 conc (Humulin R U-500 (Conc) Insulin Kwikpen) units subcut levothyroxine 88 mcg PO DAILY lidocaine 5% 1 patch topical DAILY linaclotide (Linzess) 145 mcg PO DAILY melatonin 3 mg PO BEDTIME metoclopramide HCl 5 mg PO QID nitroglycerin 0.4 mg sublingual DAILY pantoprazole 40 mg PO DAILY pregabalin 75 mg PO TID ranolazine ER 1,000 mg PO BID trazodone 50 mg PO BEDTIME valsartan mg PO HPI Comments Details: Asia is a pleasant 53 year old female patient of Dr. Cabezas who was accompanied by her significant other at today's office visit. She has a past medical history of obesity, recurrent incisional hernias, NSTEMI, insomnia, hypothyroidism, hypertension, hyperlipidemia, GERD, fibromyalgia, diabetes, CVA, coronary artery disease, and carpal tunnel syndrome. She presents to the office today for follow-up of her renal cyst. Recent CT results 12/29 reviewed with the patient today. The area of concern in the right kidney appears to be a 5 mm hypodensity which is likely a small angiolipoma but because of its tiny size and partial volume averaging, this diagnosis can not be made with certainty. There is a 1.8 cm mass in the left kidney which is not really visible on the contrast imaging. This likely represents a complex cyst. We discussed renal MRI for further assessment evaluation as recommended by radiology report. Previous renal ultrasound 10/29 noted 0.6 cm echogenic focus in the cortex of the medial mid right kidney which may represent a small angiolipoma. Normal appearance of left kidney. 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 She otherwise denies any bothersome urinary issues or concerns. She denies urinary urgency, urinary frequency, incontinence, nocturia, hematuria, dysuria, foul smelling urine, changes to urinary stream, fever, and or chills. She is happy with her current voiding parameters. Discussed at length renal cysts classification and importance of surveillance monitoring. She otherwise offers no other issues or concerns at this time. [facility] Medical History delivery delivered Severe obesity (BMI 35.0-39.9) with comorbidity Recurrent incisional hernia Intraductal papilloma of right breast NSTEMI (non-ST elevated myocardial infarction) Insomnia Hypothyroid HTN (hypertension) HLD (hyperlipidemia) GERD (gastroesophageal reflux disease) Fibromyalgia Diabetes mellitus CVA (cerebral vascular accident) CTS (carpal tunnel syndrome) CAD (coronary artery disease) Surgical History History of hernia repair History of back surgery History of hysteroscopy S/P laparoscopy with lysis of adhesions History of total abdominal hysterectomy H/O heart surgery Stented coronary artery Social History Alcohol intake: former Patient Tobacco Use Status: Former Tobacco user Review of Systems Eyes Reports no additional complaints ENT Reports no additional complaints Card Reports as per HPI Resp Reports no additional complaints GI Reports as per [facility] Reports as per [facility] Musc Reports as per [facility] Neuro Reports as per [facility] Psych Reports no additional complaints Endo Reports as per [facility] Physical Exam Const General: cooperative, healthy appearing, comfortable, no acute distress, well developed, alert and awake Nutritional Appearance: overweight Orientation/consciousness: patient oriented x3 Limitations: no limitations HEENT Head: Yes normal to inspection, Yes normocephalic and Yes atraumatic Ears: hearing grossly normal bilaterally Eyes General: appearance normal, both eyes and all related structures Neck Neck: Yes normal visual inspection and Yes trachea midline Chest Chest palpation & inspection: normal inspection of the chest Resp Effort & Inspection: normal respiratory effort and able to speak in complete sentences Cardio Rate: regular rate GI Inspection: Yes normal to inspection General: Yes no CVA tenderness Back/Spine/Pelvis Back: no CVA tenderness Skin General skin exam: no rashes or lesions noted Neuro General: patient oriented x3 Extrem General: Yes normal to inspection Psych Appearance: grossly normal and well kempt Mental Status: mental status grossly normal Speech and movement: Normal speech and movement present and Clear speech present Affect: normal affect Attitude: cooperative Thought process: Normal thought process present Thought content: Normal thought content present Insight: Fair insight present (Psych) Judgement: Fair judgement present (Psych) Results Reviewed Results Reviewed: Date of Service: 01/01/24 EXAMINATION: CT ABDOMEN AND PELVIS WITHOUT AND WITH CONTRAST FINDINGS: LUNG BASES: The visualized lung bases are unremarkable. LIVER, GALLBLADDER, AND BILIARY TREE: The liver is normal in size, shape, and attenuation. No focal hepatic lesion or biliary ductal dilatation is present. The gallbladder is unremarkable with no evidence of radiopaque gallstones, gallbladder wall thickening, or obvious pericholecystic inflammatory changes. PANCREAS: Unremarkable. SPLEEN: Unremarkable. ADRENAL GLANDS: Unremarkable. KIDNEYS AND URETERS: The kidneys are normal in size, shape, and attenuation. There is a 4 mm nonobstructing left lower pole renal calculus present. No hydronephrosis, hydroureter, or additional calculi seen. No perinephric stranding. In the area of concern in the right kidney, on the contrast enhanced study only, there is a 5 mm hypodensity seen which is likely a small renal angiomyolipoma but because of its tiny size and partial volume averaging, this diagnosis cannot be made with certainty. In the mid left kidney at about 1 o'clock, there is a rounded hypoattenuating area seen measuring 1.7 x 1.8 x 1.4 cm (7:61 and 6:31) and about 53 Hounsfield units on postcontrast scans. On the noncontrast imaging this is isoattenuating with the renal parenchyma and not really visible. This was also not visible on the patient's prior ultrasound. There are a few other even smaller hypodensities seen that are beyond the resolution of the exam. BLADDER: Unremarkable. GASTROINTESTINAL TRACT: The small and large bowel are unremarkable. The appendix is unremarkable. ABDOMINAL WALL: No significant hernia is appreciated. Scarring anterior abdominal wall likely from prior surgery. Injection granulomas are present. LYMPH NODES: No retroperitoneal lymphadenopathy. VASCULAR: Calcific atherosclerotic changes are present in the aorta and iliofemoral vessels. There is no evidence of an abdominal aortic aneurysm. PELVIC VISCERA: Unremarkable. Suspect hysterectomy. Correlate with surgical history. OSSEOUS STRUCTURES: Mild degenerative changes seen most marked at L4-L5. No bony destructive lesions. IMPRESSION: 1. The area of concern in the right kidney appears to be a 5 mm hypodensity which is likely a small angiomyolipoma but because of its tiny size and partial volume averaging, this diagnosis cannot be made with certainty. 2. There is a 1.8 cm mass in the left kidney which is not really visible on the noncontrast imaging. This could represent a complex cyst. Ultrasound has already been performed and this was not visible. 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 3. Other incidental findings as described above. 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 Will obtain MRI renal mass protocol for further assessment evaluation in 6 months for surveillance monitoring. Discussed, educated, and stressed the importance of glucose control for overall health and well-being. Patient currently denies any bothersome urinary issues or concerns. She reports be happy with current voiding parameters. Follow-up in 6 months with imaging to be completed prior; or sooner with any issues, concerns, and or questions. Orders: Orders AMB Urinalysis Automated Today Z13.9 - Encounter for screening, unspecified MR kidney wo/w con 6 Months N28.89 - Other specified disorders of kidney and ureter Patient Instructions: The patient had an opportunity to ask questions regarding the treatment plan. All questions were answered. Physical exam, labs, and imaging were discussed and reviewed in detail. As well as risks, benefits, and discussion of treatment choices. No major barriers to understanding were identified. The patient expressed understanding and agreement with the above treatment plan. The patient was made aware they should contact our office by phone for worsening of their current condition, the appearance of new symptoms, or with any questions or concerns. Compliance is encouraged with any medications and follow up testing that is ordered. It is a privilege to be allowed the opportunity to participate in? your urological care.? Again, if you have any questions or concerns If you have any questions or concerns please do not hesitate to contact me. The office is [phone]. This note is constructed using voice recognition software. While every effort has been made to ensure accuracy domain architect errors may have been included. Yours sincerely, ELVIS Sousa Coding Level of Care Code Est Pt Level 3 (17586) Complex EM visit Add On G2211 Diagnoses Angiolipoma D17.9 Renal cyst N28.1 Renal mass N28.89
== END 2024-01-30 13:17 | disposition home or self-care (01) ==
PROVIDERS: PCP Family Medicine; Visit Provider Nurse Practitioner Family
DX: D17.9 Benign lipomatous neoplasm, unspecified (principal); N28.1 Cyst of kidney, acquired; N28.89 Other specified disorders of kidney and ureter
CPT/HCPCS: 99213; G2211

== ENCOUNTER → 2024-01-30 12:00 | Outpatient (BNVA) | payer OTHER, SELFPAY | PROVIDERS: PCP Family Medicine; Visit Provider Nurse Practitioner Family | DX: N28.89 Other specified disorders of kidney and ureter (principal); N28.1 Cyst of kidney, acquired; D17.9 Benign lipomatous neoplasm, unspecified | CPT/HCPCS: 99212 ==

== ENCOUNTER 2024-06-05 10:24 | Outpatient (AMB) | payer OTHER, SELFPAY ==
[2024-06-05 10:31] VITALS: BP 110/72; PULSE 81; O2SAT 95; BMI 36.8
--- NOTE | 2024-06-05 10:31 | HO.NEPHOV ---
Vital Signs 06/05/24 10:31 Height 5 ft 2 in Weight 201 lb BMI 36.8 BP 110/72 Blood Pressure Location Lt brachial Position Sitting Pulse 81 Pulse Source Pulse Oximeter Pulse Oximetry (%) 95 Oxygen Delivery Method Room Air Intake Visit Reasons: 6 mon follow up/ Conf Staff Physical Therapist Required: No Accompanied by: Spouse Allergies dulaglutide Allergy (Verified 06/05/24 10:33) pancreatitis morphine Allergy (Verified 06/05/24 10:33) headache, nausea, vomiting metformin Adverse Reaction (Verified 06/05/24 10:33) Diarrhea Medication List - Last Reconciled 06/05/24 by Freedom Leiva MD albuterol sulfate mg inhalation amitriptyline mg PO amlodipine 2.5 mg PO DAILY aspirin (Adult Low Dose Aspirin) 81 mg PO DAILY atorvastatin 80 mg PO DAILY blood-glucose sensor ([employer] G7 Sensor device) As directed buspirone 30 mg PO BID carvedilol 25 mg PO BID celecoxib 200 mg PO DAILY PRN clopidogrel 75 mg PO DAILY duloxetine 120 mg PO DAILY escitalopram oxalate mg PO flash glucose sensor ([employer] Prateek 14 Day Sensor kit) As directed glipizide 10 mg PO DAILY insulin regular hum U-500 conc (Humulin R U-500 (Conc) Insulin Kwikpen) units subcut levothyroxine 88 mcg PO DAILY lidocaine 5% 1 patch topical DAILY linaclotide (Linzess) 145 mcg PO DAILY melatonin 3 mg PO BEDTIME metoclopramide HCl 5 mg PO QID nitroglycerin 0.4 mg sublingual DAILY pantoprazole 40 mg PO DAILY pregabalin 75 mg PO TID ranolazine ER 1,000 mg PO BID trazodone 50 mg PO BEDTIME valsartan mg PO HPI Comments Details: Asia is a pleasant middle-aged woman with a history of diabetes mellitus since 2004, referred for evaluation of proteinuria and renal cyst. Blood sugar has been suboptimally controlled. The last A1c was 10.2 back in June of 2022. She is waiting for a insulin pump in the next few weeks. She was seen by Urology recently for the renal cyst. MRi showed a cyst on the left kidney which is being evaluated. Routine workup revealed the dipstick positive proteinuria. She is on valsartan 80 mg the last few years. 06/05/24 Overall doing well. No new issues [facility] Medical History delivery delivered Severe obesity (BMI 35.0-39.9) with comorbidity Recurrent incisional hernia Intraductal papilloma of right breast NSTEMI (non-ST elevated myocardial infarction) Insomnia Hypothyroid HTN (hypertension) HLD (hyperlipidemia) GERD (gastroesophageal reflux disease) Fibromyalgia Diabetes mellitus CVA (cerebral vascular accident) CTS (carpal tunnel syndrome) CAD (coronary artery disease) Surgical History History of hernia repair History of back surgery History of hysteroscopy S/P laparoscopy with lysis of adhesions History of total abdominal hysterectomy H/O heart surgery Stented coronary artery Social History Alcohol intake: former Patient Tobacco Use Status: Former Tobacco user Physical Exam Vital Signs: Last Vital Signs Pulse 81 06/05/24 10:31 BP 110/72 06/05/24 10:31 Pulse Ox 95 06/05/24 10:31 Oxygen Delivery Method Room Air 06/05/24 10:31 BMI result Body Mass Index 36.8 Results Reviewed Nephrology Results: BUN 12 mg/dL (9-16) 01/01/24 Creatinine 0.87 mg/dL (0.5-1.4) 01/01/24 Renal US 10/11/23 Assessment & Plan Assessment & Plan (1) Angiolipoma: Code(s): D17.9 - Benign lipomatous neoplasm, unspecified Category: Medical (2) Renal cyst: Code(s): N28.1 - Cyst of kidney, acquired Category: Medical (3) Renal mass: Code(s): N28.89 - Other specified disorders of kidney and ureter Category: Medical (4) Nephrolithiasis: Code(s): N20.0 - Calculus of kidney Category: Medical (5) Fibromyalgia: Code(s): M79.7 - Fibromyalgia Category: Medical (6) Proteinuria: Code(s): R80.9 - Proteinuria, unspecified Category: Medical Plan Middle-aged woman with a longstanding history of diabetes mellitus and obesity has minimal proteinuria. Minimal Proteinuria is most likely due to underlying diabetic kidney disease. Obesity could also be playing a role. The renal function stable with a serum creatinine 0.6 mg/dL. The goal is to slow the progression of renal disease. I have discussed importance of controlling blood sugar and to maintain hemoglobin A1c less than 7%. We also discussed weight loss and have encouraged her to increase her physical activity and to cut back on her carbohydrate intake. Follow urine for protein creatinine ratio. At this time the blood pressure seems well controlled. She should stay on a low-sodium diet. I would continue with the valsartan for renal protection and dose can be titrated upwards gradually based on the blood pressure. Renal cyst. Continue follow-up with Urology Mild hypomagnesemia Add MgO 200 mg QD Orders: Orders Basic Metabolic Panel 6 Months N20.0 - Calculus of kidney Magnesium 6 Months N20.0 - Calculus of kidney Parathyroid Hormone Intact 6 Months N20.0 - Calculus of kidney Medications: New magnesium 200 mg PO DAILY 100 tabs 1RF Coding Level of Care Code Est Pt Level 4 (89176) Diagnoses Angiolipoma D17.9 Renal cyst N28.1 Renal mass N28.89 Nephrolithiasis N20.0 Fibromyalgia M79.7 Proteinuria R80.9
--- OUTSIDE RECORDS SUMMARY | 2024-06-05 12:29 | XMS_ITS | Clinical Summary ---
Author Organization [facility] mValent Address [address] [facility] [place] [address] Phone Care Team Providers Care Documentation Clerk Name Role Phone Justina Cabezas MD Primary Care Provider [phone] Allergies Active Allergy Reactions Criticality Noted Date Comments Dulaglutide 12/10/2021 pancreatitis Empagliflozin Other 02/02/2024 Dehydration Metformin Diarrhea 08/17/2021 Morphine Headache,Nausea And Vomiting 022 Medications Medication Sig Dispensed Refills Start Date End Date Status aspirin 81 mg chewable tablet Chew 1 tablet (81 mg total) 1 (one) time each day. Active carvediloL (COREG) 25 mg tablet Take 1 Tablet by mouth 2 times daily. Active clopidogreL (PLAVIX) 75 mg tablet TAKE ONE TABLET BY MOUTH ONCE DAILY 09/20/2023 Active glipiZIDE (GLUCOTROL) 10 mg tablet Take 1 Tablet by mouth daily. Active pregabalin (LYRICA) 75 mg capsule Take 1 Capsule by mouth daily. Active ranolazine (RANEXA) 1,000 mg 12 hr tablet Take by mouth 2 times daily. Active valsartan (DIOVAN) 40 mg tablet Take 1 Tablet by mouth 2 times daily. Active insulin lispro 100 unit/mL injection Inject under the skin 3 (three) times a day before meals. -Administer within 15 minutes of a meal Active nitroglycerin (NITROSTAT) 0.[address] 1 tablet (0.4 mg total) under the tongue every 5 (five) minutes if needed for chest pain. 100 tablet 1 04/19/2024 Active pantoprazole (PROTONIX) 40 mg EC tablet Take 1 tablet (40 mg total) by mouth 1 (one) time each day before breakfast. Do not crush, chew, or split. Active atorvastatin (LIPITOR) 80 mg tablet Take 1 tablet (80 mg total) by mouth at bedtime. Active levothyroxine (SYNTHROID, LEVOTHROID) 88 mcg tablet Take 1 tablet (88 mcg total) by mouth 1 (one) time each day before breakfast. Active amLODIPine (NORVASC) 10 mg tablet Take 1 tablet (10 mg total) by mouth 1 (one) time each day. Active Hospital, Clinic, or Other Facility Administered Medication Ordered Dose Route Frequency Start Date End Date Status TC-99M tetrofosmin P radio-isotope injection 10.5 millicurie 10.5 millicurie IV Once in imaging 05/21/2024 05/21/2024 Ende d TC-99M tetrofosmin P radio-isotope injection 32.5 millicurie 32.5 millicurie IV Once in imaging 05/21/2024 05/21/2024 Ende d Active Problems Problem Noted Date Diagnosed Date Carotid artery stenosis 04/19/2024 Assessment & Plan (04/19/2024 9:39 AM EST): During recent hospitalization in July, she was found to have bilateral carotid artery stenosis at 50%. She does mention that she was seen by a vascular provider recently. Will continue to monitor with routine ultrasounds of her carotids to monitor for progression. She continues on aspirin, clopidogrel, and statin. Orders: ECG 12 lead Chest pain 04/24/2023 Overview (04/12/2024): Last Assessment & Plan: Patient was reporting active chest discomfort during her office visit and she was sent to [facility] emergency room for further evaluation. Snoring 12/14/2021 Overview (04/12/2024): Last Assessment & Plan: The patient has a history of significant nighttime snoring, witnessed apneas during her sleep, and daytime fatigue. She also has a history of obesity and hypertension. She has a stop bang score of 6. As such, further testing is indicated to rule out the possibility of underlying sleep apnea. We will order a sleep study. CAD (coronary artery disease) 12/10/2021 Overview (04/12/2024): Last Assessment & Plan: The patient has a history of coronary artery disease status post coronary artery stent placement to the circumflex and right coronary artery in 2019. She is on chronic antianginal therapy with carvedilol and Ranexa. The patient states that she was previously on isosorbide mononitrate but the medication was discontinued due to side effects. She continues on aspirin, clopidogrel, and atorvastatin. During today's visit, the patient reports active chest discomfort associated with shortness of breath. She rates this as a 9 out of 10. EKGs with no acute abnormality. Given her active chest discomfort, an ambulance was called and she will present to [facility] emergency room for further evaluation. Assessment & Plan (04/19/2024 9:39 AM EST): The patient has a history of coronary artery disease status post coronary artery stent placement to the circumflex and RCA in 2019. On today's visit, she has been noticing episodes of chest discomfort and shortness of breath with exertional activities. At this point, recommend she undergo a nuclear stress test to rule out ischemia as a cause of her symptoms. We discussed the role of medical therapy and she continues on antianginal therapy with carvedilol, Ranexa, amlodipine. In the past, isosorbide mononitrate was discontinued due to significant side effects she also continues on aspirin, clopidogrel and statin therapy. We reviewed as needed nitro and instructions. Will also update an echocardiogram to reevaluate her LV function and assess for any structural abnormalities as a cause. Patient advised to seek emergency medical attention by calling 911 if they were to develop severe dyspnea, chest pain that did not resolve with rest or nitroglycerin, or if they were to faint. I will notify her of the results of her testing as soon as the become available. Orders: Magnesium; Future Nuclear stress test with myocardial perfusion; Future Transthoracic echocardiogram (TTE) complete with PRN contrast, bubble, strain, and 3D order panel; Future Magnesium ECG 12 lead HLD (hyperlipidemia) 12/10/2021 Overview (04/12/2024): Last Assessment & Plan: We will update a new fasting lipid panel if it does not get done in the hospital at her next follow-up appointment. Assessment & Plan (04/19/2024 9:39 AM EST): Will update a new fasting lipid panel to reassess her lipid control and make any adjustments as necessary. In the meantime, she will continue her current dose of atorvastatin as prescribed. Orders: Lipid panel; Future Lipid panel HTN (hypertension) 12/10/2021 Overview (04/12/2024): Last Assessment & Plan: Patient's blood pressure was noted to be 138/80. After she started experiencing active chest discomfort and shortness of breath, she was noted to be hypertensive. She will be evaluated in the emergency room. Assessment & Plan (04/19/2024 9:39 AM EST): Patient's blood pressure is well-controlled today. She will continue her current antihypertensive medication regimen as prescribed. Orders: Comprehensive metabolic panel; Future Comprehensive metabolic panel Encounters Date Type Department Care Team Description 05/21/2024 12:30 PM EST Ancillary Procedure [facility] [address] [place] [address] Coronary artery disease involving lummi coronary artery of lummi heart without angina pectoris 04/22/2024 Telephone [facility] [address] [place] [address] [place] [address] Melody Collins NP lab results 04/19/2024 7:40 AM EST Office Visit [facility] [address] [place] [address] [place] [address] Melody Collins NP Coronary artery disease involving lummi coronary artery of lummi heart without angina pectoris (Primary Dx); Primary hypertension; Mixed hyperlipidemia; Bilateral carotid artery stenosis from Last 3 Months Surgical History Surgery Date Site/Laterality Comments OTHER SURGICAL HISTORY PROCEDURE: HISTORY OTHER; COMMENT: RCA and LAD w/ left circumflex stent patent CARDIAC CATHETERIZATION 08/2018 PROCEDURE: HISTORICAL CARDIAC CATH OTHER SURGICAL HISTORY PROCEDURE: NV PATIENT HAS A CORONARY ARTERY STENT CARDIAC SURGERY 11/05/2017 PROCEDURE: HISTORICAL HEART SURGERY(ASD,VSD,VALVES) OTHER SURGICAL HISTORY 06/28/2017 PROCEDURE: HISTORICAL TOTAL HYSTERECTOMY W/O BSO OTHER SURGICAL HISTORY 06/08/2017 PROCEDURE: NV LAPAROSCOPY W/LYSIS OF ADHESIONS OTHER SURGICAL HISTORY 08/17/2016 PROCEDURE: NV ENDOSCOPY UPPER SMALL INTESTINE COLONOSCOPY 08/17/2016 PROCEDURE: HISTORICAL COLONOSCOPY BACK SURGERY 05/08/1989 PROCEDURE: HISTORICAL BACK SURGERY SECTION 1991 PROCEDURE: HISTORICAL DELIVERY SECTION 1993 PROCEDURE: HISTORICAL DELIVERY Medical History Medical History Date Comments Covid-19 DX:COVID-19 Asthma DX:Asthma CTS (carpal tunnel syndrome) DX: CTS (carpal tunnel syndrome) DM (diabetes mellitus) ([facility]) DX:DM (diabetes mellitus) ([facility]) Fibromyalgia DX:Fibromyalgia GERD (gastroesophageal reflux disease) DX:GERD (gastroesophageal reflux disease) Hypothyroidism DX:Hypothyroidis m Insomnia DX:Insomnia Class 2 obesity DX:Class 2 obesi ty Recurrent incisional hernia DX:R ecurrent incisional hernia C. difficile diarrhea DX:C. diff icile diarrhea Chest pain DX:Chest pain Family History Medical History Relation Name Comments Colon cancer Father Diabetes Father mellitus type 2 Hypertension Father Other: heart disease Maternal Grandmother Diabetes Mother mellitus type 2 Relation Name Status Comments Father Maternal Grandmother Mother Social History Tobacco Use Types Packs/Day Years Used Date Smoking Tobacco: Former Cigarettes Q uit: 05/08/1997 Smokeless Tobacco: Former Alcohol Use Standard Drinks/Week Comments Not Currently 0 (1 standard drink = 0.6 oz pur e alcohol) Sex and Gender Information Value Date Recorded Sex Assigned at Not on file Gender Identity Not on file Sexual Orientation Not on file Job Start Date Occupation Industry Not on file Not on file Not on file Obstetrics History Last Filed Vital Signs Vital Sign Reading Time Taken Comments Blood Pressure 159/109 05/21/2024 1:11 PM EST Pulse 85 04/19/2024 7:38 AM EST Temperature - - Respiratory Rate - - Oxygen Saturation 96% 04/19/2024 7:38 AM EST Inhaled Oxygen Concentration - - Weight 89.4 kg (197 lb) 05/21/2024 3:30 PM EST Height 157.5 cm (5' 2 ) 05/21/2024 3:30 PM EST Body Mass Index 36.03 05/21/2024 3:30 PM EST Plan of Treatment Upcoming Encounters Date Type Department Care Team (Late st Contact Info) Description 07/04/2024 12:30 PM EST Ancillary Procedure [facility] [address] [place] [phone] 07/09/2024 8:30 AM EST Office Visit [facility] - [place] [address] [place] [phone] Marilia Hector MD [address] [place] [address] 08/07/2024 9:50 AM EDT Office Visit [facility] [place] [address] [place] [address] Xiao Whittaker MD [address] [place] [address] [address] [place] [address] Health Maintenance Due Date Last Done Comments Breast Cancer Screening 1970 Diabetes: Annual Foot Exam 1980 Diabetes: Annual Retina Eye Exam 1980 Hepatitis B Vaccines (1 of 3 - 19+ 3-dose series) 1989 Zoster Vaccines (1 of 2) 1989 Cervical Cancer Screening: Pap Smear 1991 COVID-19 Vaccine (3 - Pfizer risk series) 01/04/2021 12/07/2020, 11/16/2020 Colorectal Cancer Screening: Colonoscopy 04/06/2022 Depression Screening 04/06/2022 HIV Screening 04/06/2022 Hepatitis C Screening 04/06/2022 Social Influencers of Health Screening 04/06/2022 Influenza Vaccine (#1) 2024 3, 09/27/2021, 02/01/2020, Additional history exists Diabetes: Annual Urine Albumin-Creatinine Ratio (uACR) 04/19/2024 Diabetes: Blood Sugar Control Test (HGBA1C) 04/19/2024 Diabetes: Annual GFR (Glomerular Filtration Rate) 04/19/2025 04/19/2024 Hypertension/CHF/CAD Annual BMP Blood Test 04/19/2025 04/19/2024 DTaP,Tdap,and Td Vaccines (2 - Td or Tdap) 07/20/2027 07/19/2017 Cholesterol Screening (Lipid Panel) 04/19/2029 04/19/2024 Pneumococcal Vaccine: Pediatrics (0 to 5 Years) and At-Risk Patients (6 to 64 Years) Completed 12/26/2023, 07/19/2017 HIB Vaccines Aged Out No longer eligi ble based on patient's age to complete this topic HPV Vaccines Aged Out No longer eligi ble based on patient's age to complete this topic Hepatitis A Vaccines Aged Out No long er eligible based on patient's age to complete this topic IPV Vaccines Aged Out No longer eligi ble based on patient's age to complete this topic MMR Vaccines Aged Out No longer eligi ble based on patient's age to complete this topic Meningococcal ACWY Vaccine Aged Out N o longer eligible based on patient's age to complete this topic RSV Immunization Patients Under 20 months Aged Out No longer eligible based on patient's age to complete this topic Varicella Vaccines Aged Out No longer eligible based on patient's age to complete this topic Procedures Procedure Name Priority Date/Time Associated Diagnosis Comments NM EXERCISE STRESS TEST W/ MYOCARDIAL PERFUSION Routine 05/21/2024 3:30 PM EST Coronary artery disease involving lummi coronary artery of lummi heart without angina pectoris ECG 12-LEAD Routine 04/19/2024 9:39 AM EST Coronary artery disease involving lummi coronary artery of lummi heart without angina pectoris Bilateral carotid artery stenosis MAGNESIUM Routine 04/19/2024 8:40 AM EST LIPID PANEL Routine 04/19/2024 8:40 AM EST COMPREHENSIVE METABOLIC PANEL Routine 04/19/2024 8:40 AM EST from Last 3 Months Results * NM EXERCISE STRESS TEST W/ MYOCARDIAL PERFUSION (05/21/2024 3:30 PM EST) Exercise/inject ion duration (min) 6 CV PACS STRESS Exercise/inject ion duration (sec) 0 CV PACS STRESS Peak SBP 180 mmHg CV PACS STRESS Peak DBP 90 mmHg CV PACS STRESS Peak HR 157 bpm CV PACS STRESS Baseline HR 101 bpm CV PACS STRESS Baseline SBP 159 mmHg CV PACS STRESS Baseline DBP 109 mmHg CV PACS STRESS Estimated workload 7.0 METS CV PACS STRESS Percent HR 95 % CV PACS STRESS Rate Pressure Product 28,260.0 mmHg*bpm CV PACS STRESS Target HR 141 bpm CV PACS STRESS Angina Index 0 CV PACS STRESS Max HR Percent 95 % CV PA CS STRESS ST Depression (mm) 0 mm CV PACS STRESS TID 1.03 CV PACS STRESS Nuc Stress EF 64 % CV PAC S STRESS Nuc Rest EF 71 % CV PACS STRESS BSA 1.98 m2 CV PACS STRESS Anatomical Region Laterality Modality Nuclear Medicine 05/21/2024 1:42 PM EST 05/21/2024 2:10 PM EST Impressions 05/22/2024 10:14 PM EST 1. Normal exercise nuclear stress test. 2. ??Exercise protocol: The patient exercised for 6 minutes. The patient achieved 95% of the Max predicted heart rate 3. Functional capacity: Average functional capacity for age and gender 4. Symptoms: No chest pain during the exercise protocol 5. Stress ECG: No ischemic ECG changes with exercise 6. Myocardial perfusion imaging: - Myocardial perfusion imaging revealed no areas of ischemia or infarction after attenuation correction was applied. 7. TID was normal 1.03. 8. Gated images revealed normal LV wall motion and thickening; with a normal LV systolic function (LVEF 71%). 9. ??There is evidence of coronary artery calcification in the LAD and circumflex which were noted on the CT scan images obtained for attenuation correction. Narrative 05/22/2024 10:14 PM EST Stress Findings A Reggie protocol stress test was performed. Overall, the patient's exercise capacity was average. Total stress time was 6 min and 0 sec. The patient experienced no angina during the test. The test was stopped because the patient experienced fatigue. The patient's hemodynamic response was adequate for diagnosis. Blood pressure demonstrated a normal response but was hypertensive at rest off Coreg and amlodipine x 24 hours. Heart rate demonstrated a normal response. The patient reported no symptoms during the stress test. ECG 54 yo female with CAD, prior PCI, CVA with occ episodeds of exertional chest discomfort and HERR over the past few months. Evaluate for ischemic burden. A seismic interpreter was used during the test. The ECG shows normal sinus rhythm. There were no arrhythmias during stress. There is no ST segment changes during stress. There were no arrhythmias during recovery. The result of the stress ECG was negative for ischemia. Nuclear Study Quality Study technique: MPI, SPECT, multi, rest and stress, 1 day. Overall image quality is good. CT attenuation correction was utilized. No radiopharmaceutical dose was extravasated. Stress Function Comments Stress ejection fraction is 64%. Rest Function Comments Resting ejection fraction was 71%. Stress Combined Conclusion SCAN FINDINGS: Nuclear imaging of the left ventricle reveals normal cavity size at rest with no change on stress imaging. Myocardial perfusion imaging of the left ventricle revealed a small in size and very mild intensity fixed perfusion defect in the basal inferolateral wall. No significant reversible perfusion defects. The raw images demonstrated the presence of soft tissue attenuation. CT attenuation correction was applied to the study which completely corrects the previously mentioned fixed perfusion abnormality No reversible or fixed perfusion defects were noted on the attenuation corrected myocardial perfusion images. Gated SPECT imaging was performed which demonstrated normal LV function and thickening with a calculated LVEF of 71% CT Findings There is evidence of coronary artery calcifications in the LAD and circumflex which were noted on the CT scan images obtained for attenuation correction. Perfusion Scoring Resting Summed Score: 0 Percent Normal: 0.00% The left ventricular perfusion is normal. Attenuation corrected myocardial perfusion images at rest Perfusion Scoring Stress Summed Score: 0 Percent Normal: 0.00% The left ventricular perfusion is normal. Attenuation corrected myocardial perfusion images post stress Perfusion Scores: SRS Score: 0 Percentage Abnormal: 0.00% Perfusion Scores: SSS Score: 0 Percentage Abnormal: 0.00% Perfusion Scores: SDS Score: 0 Percentage Abnormal: 0.00% Melody Collins NP CV STRESS PROCEDURE S * ECG 12 lead (04/19/2024 9:39 AM EST) [facility] Signature Ventricular Rate ECG 88 BPM GEMUSE Atrial Rate 88 BPM GEMUSE P-R Interval 152 ms GEMUSE QRS Duration 74 ms GEMUSE Q-T Interval 374 ms GEMUSE QTc 452 ms GEMUSE P Wave [place] 46 degrees GEMUSE R [place] 75 degrees GEMUSE T [place] 22 degrees GEMUSE ECG Interpretation Normal sinus rhythm Low voltage QRS Borderline ECG When compared with ECG of 23-JUL-2023 16:24, Questionabl e change in QRS axis Confirmed by XIAO LANDON ([id number]) on 04/22/2024 12:56:57 PM GEMUSE 04/19/2024 8:20 AM EST 04/22/2024 12:56 PM EST Melody Collins NP ECG ORDERABLES Performing Organization Address City/[facility]/ZIP Co de Phone Number GEMUSE * (ABNORMAL) Magnesium (04/19/2024 8:40 AM EST) Magnesium 1.4(L) 1.6 - 2.3 mg/dL [facility] 1 04/19/2024 8:40 AM EST 04/19/2024 Narrative [facility] 1 - 04/19/2024 11:06 PM EST Performed at: ??01 - [facility] [address] ??[id number] Color Making Supervisor: Lizzy Sharma MD, Phone: ??[phone] Melody Collins NP LAB BLOOD ORDERABLE S Performing Organization Address [facility] de Phone Number [facility] 1 * (ABNORMAL) Lipid panel (04/19/2024 8:40 AM EST) Cholesterol Total 165 100 - 199 mg/dL [facility] 1 Triglycerides 368(H) 0 - 149 mg/dL [facility] 1 HDL Cholesterol 46 >39 mg/dL [facility] 1 VLDL Cholesterol Calculated 57(H) 5 - 40 mg/dL [facility] 1 LDL Chol Calc (NIH) 62 0 - 99 mg/dL [facility] 1 04/19/2024 8:40 AM EST 04/19/2024 Narrative [facility] 1 - 04/19/2024 11:06 PM EST Performed at: ??01 - [facility] [address] ??[id number] Color Making Supervisor: Lizzy Sharma MD, Phone: ??[phone] Melody Collins NP LAB BLOOD ORDERABLE S Performing Organization Address City/[facility] Co de Phone Number [facility] 1 * (ABNORMAL) Comprehensive metabolic panel (04/19/2024 8:40 AM EST) Glucose 232(H) 70 - 99 mg/dL [facility] 1 Blood Urea Nitrogen (BUN) 12 6 - 24 mg/dL [facility] 1 Creatinine 0.64 0.57 - 1.00 mg/dL [facility] 1 eGFR 106 >59 mL/min/1. 73 [facility] 1 BUN/Creatinine Ratio 19 9 - 23 [facility] 1 Sodium 140 134 - 144 mmol/L [facility] 1 Potassium 3.9 3.5 - 5.2 mmol/L [facility] 1 Chloride 103 96 - 106 mmol/L [facility] 1 Carbon Dioxide 20 20 - 29 mmol/L [facility] 1 Calcium 9.3 8.7 - 10.2 mg/dL [facility] 1 Protein Total 6.2 6.0 - 8.5 g/dL [facility] 1 Albumin 3.9 3.8 - 4.9 g/dL [facility] 1 Globulin Total 2.3 1.5 - 4.5 g/dL [facility] 1 Bilirubin Total 0.3 0.0 - 1.2 mg/dL [facility] 1 Alkaline Phosphatase 126(H) 44 - 121 IU/L [facility] 1 Aspartate aminotransferase??(A ST) 18 0 - 40 IU/L [facility] 1 Alanine Aminotransferase (ALT) 25 0 - 32 IU/L [facility] 1 04/19/2024 8:40 AM EST 04/19/2024 Narrative [facility] 1 - 04/19/2024 11:06 PM EST Performed at: ??01 - [facility] [address] ??[id number] Color Making Supervisor: Lizzy Sharma MD, Phone: ??[phone] Melody Collins NP LAB BLOOD ORDERABLE S [facility] 1 from Last 3 Months Care Teams Documentation Clerk Relationship Specialty Start Date End Date Justina Cabezas MD [address] [place] [phone] PCP - General 04/24/23
--- OUTSIDE RECORDS SUMMARY | 2024-06-05 12:29 | XMS_ITS | Encounter Summary ---
Author Organization [email or web address] Address [address] [place] [address] Care Team Providers Care Ordinary Seaman Name Role Phone Justina Cabezas MD Primary Care Provider + Reason for Visit * Cardiac Stress Testing (Routine) - Closed Specialty Diagnoses / Procedures Referred By Contac t Referred To Contact Cardiology Diagnoses Coronary artery disease involving [place] coronary artery of [place] heart without angina pectoris Procedures Nuclear stress test with myocardial perfusion AR MYOCARDIAL PERFUSION IMAGING TOMOGRAPHIC MULTI STUDIES AT REST OR STRESS AR MYOCARDIAL PERFUSION IMAGING TOMOGRAPHIC SINGLE STUDY AT REST OR STRESS AR CARDIOVASCULAR STRESS TEST GLOBAL AR CV TMST/BIKE MAX/SUBMAX CONTINUOUS ECG MON/PHARM STRESS SUPVSR ONLY AR CV STRESS TEST/BIKE CONT ECG MON/PHARM STRESS INTERP & REPORT ONLY AR TEST STRESS CARDIOVASCULAR TRACING ONLY Melody Collins NP [address] [place] [address] [address] [place] [address] [facility] [address] [place] [address] Referral ID Status Reason Start Date Expiration Date Visits Re quested Visits Authorized [id number] Closed 04/25/2024 06/24/2024 3 1 Encounter Details Date Type Department Care Team (Latest Contact Info) Description 05/21/2024 12:30 PM EST Ancillary Procedure [facility] - [address] [place] [address] Coronary artery disease involving [place] coronary artery of [place] heart without angina pectoris Social History Tobacco Use Types Packs/Day Years [...] file Not on file Not on file documented as of this encounter Last Filed Vital Signs Vital Sign Reading Time Taken Comments Blood Pressure 159/109 05/21/2024 1:11 PM EST Pulse - - Temperature - - Respiratory Rate - - Oxygen Saturation - - Inhaled Oxygen Concentration - - Weight 89.4 kg (197 lb) 05/21/2024 3:30 PM EST Height 157.5 cm (5' 2 ) 05/21/2024 3:30 PM EST Body Mass Index 36.03 05/21/2024 3:30 PM EST documented in this encounter Plan of Treatment Upcoming Encounters Date Type Department Care Team (Late st Contact Info) Description 07/04/2024 12:30 PM EST Ancillary Procedure [facility] - [address] [place] [address] 07/09/2024 8:30 AM EST Office Visit Bariatric Surgery - [place] [address] [place] [address] Marilia Hector MD [address] [facility] [address] [place] [address] 08/07/2024 9:50 AM EDT Office Visit [facility] - [facility] [address] [place] [address] Henrry Whittaker MD [facility] [address] [place] [address] documented as of this encounter Procedures Procedure Name Priority Date/Time Associated Diagnosis Comments NM EXERCISE STRESS TEST W/ MYOCARDIAL PERFUSION Routine 05/21/2024 3:30 PM EST Coronary artery disease involving [place] coronary artery of [place] heart without angina pectoris documented in this encounter Results * NM EXERCISE STRESS TEST W/ [...] few months. Evaluate for ischemic burden. A payment rep was used during the test. The ECG [...] Melody Collins NP CV STRESS PROCEDURE S documented in this encounter Visit Diagnoses Diagnosis Coronary artery disease involving [place] coronary artery of [place] heart without angina pectoris documented in this encounter Administered Medications Inactive Administered Medications - up to 3 most recent administrations Medication Order MAR Action Action Date Dose Rate Site TC-99M tetrofosmin P radio-isotope injection 10.5 millicurie 10.5 millicurie, intravenous, Once in imaging, Starting on Mon05/21/24 at 1239, For 1 dose Given 05/21/2024 12:44 PM EST 10.5 millicuries Right Antecubital TC-99M tetrofosmin P radio-isotope injection 32.5 millicurie 32.5 millicurie, intravenous, Once in imaging, Starting on Mon05/21/24 at 1400, For 1 dose Given 05/21/2024 2:00 PM EST 32.5 millicuries Right Antecubital documented in this encounter Care Teams Ordinary Seaman Relationship Specialty Start Date End Date Justina Cabezas MD [address] [place] [phone] PCP - General 04/24/23 documented as of this encounter
== END 2024-06-05 10:55 | disposition home or self-care (01) ==
PROVIDERS: PCP Family Medicine; Visit Provider Internal Medicine Hypertension Specialist
DX: D17.9 Benign lipomatous neoplasm, unspecified (principal); N28.1 Cyst of kidney, acquired; N28.89 Other specified disorders of kidney and ureter; N20.0 Calculus of kidney; M79.7 Fibromyalgia; R80.9 Proteinuria, unspecified
CPT/HCPCS: 99214

== ENCOUNTER → 2024-06-05 10:24 | Outpatient (BNVA) | payer OTHER, SELFPAY | PROVIDERS: PCP Family Medicine; Visit Provider Internal Medicine Hypertension Specialist | DX: R80.9 Proteinuria, unspecified (principal); E11.9 Type 2 diabetes mellitus without complications; N28.1 Cyst of kidney, acquired; D17.9 Benign lipomatous neoplasm, unspecified; N28.89 Other specified disorders of kidney and ureter; N20.0 Calculus of kidney; M79.7 Fibromyalgia | CPT/HCPCS: 99212 ==

== ENCOUNTER 2024-07-22 12:52 | Outpatient (REF) | payer OTHER, SELFPAY ==
--- NOTE | ~2024-07-22 | MR_ITS ---
EXAMINATION: MRI Abdomen without and with contrast HISTORY: DISORDER OF KIDNEY, URETER COMPARISON: Comparison is made to a prior MRI of the abdomen from [facility] dated 04/05/2023. Correlation is also made with a renal ultrasound dated 10/11/[address] of the abdomen without and with contrast dated 01/01/2024. TECHNIQUE: Axial in and out of phase T1-weighted gradient echo, axial diffusion weighted, and axial and coronal HASTE T2 with fat saturation images were obtained through the abdomen. Subsequently, fat suppressed axial and coronal T1-weighted images were obtained after the intravenous administration of 9 mL Gadavist. FINDINGS: The kidneys are normal in size and contour. There is no hydronephrosis. There is a 2 mm T1 hyperintense focus at the anterior aspect of the mid to upper pole of the right kidney. This appears to demonstrate loss of signal intensity on fat-suppressed images consistent with fat in a tiny angiomyolipoma. This lesion is unchanged from the prior MRI. The right kidney is otherwise unremarkable. The left kidney demonstrates a 1.3 cm T2 hyperintense lesion at the upper pole which demonstrates multiple internal septations. There is enhancement of the septations after the administration of intravenous gadolinium. Findings are consistent with a complex cyst (Bosniak IIF lesion). No additional left renal lesion is identified. There is no significant loss of signal intensity within the liver on opposed phase imaging to suggest steatosis. No enhancing liver mass is identified. The hepatic and portal veins are patent. There is no intra or extrahepatic biliary ductal dilatation. The gallbladder, spleen, pancreas, and adrenals are unremarkable. No retroperitoneal lymphadenopathy or ascites is identified in the upper abdomen. The visualized bones demonstrate normal signal intensity. MR/MR abdomen wo/w con IMPRESSION: 1. 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 2. 1.3 cm Bosniak 2F lesion at the upper pole of the left kidney. Continued follow-up is recommended. Electronically signed by: Ruben Grant MD 07/23/2024 07:25 AM EDT
[2024-07-22] MEDS: gadobutroL 10 ML VIAL IVPUSH (14:02)
--- OUTSIDE RECORDS SUMMARY | 2024-07-22 15:02 | XMS_ITS | Clinical Summary ---
Author Organization [facility] Address [address] [facility] [place] [address] Phone Care Team Providers Care Director Sterile Processing Name Role Phone Justina Cabezas MD Primary Care Provider [phone] Allergies Active Allergy Reactions Criticality Noted Date Comments Dulaglutide 12/10/2021 pancreatitis Empagliflozin Other 02/02/2024 Dehydration Metformin Diarrhea 08/17/2021 Morphine Headache,Nausea And Vomiting 022 Medications aspirin 81 mg chewable tablet Chew 1 tablet (81 mg total) 1 (one) time each day. Active carvediloL (COREG) 25 mg tablet Take 1 Tablet by mouth 2 times daily. Active glipiZIDE (GLUCOTROL) 10 mg tablet Take [...] mouth 1 (one) time each day. Active amLODIPine (NORVASC) 2.5 mg tablet TAKE 1 TABLET BY MOUTH ONCE DAILY 90 tablet 1 06/17/2024 Active clopidogreL (PLAVIX) 75 mg tablet TAKE 1 TABLET BY MOUTH ONCE DAILY 90 tablet 1 06/17/2024 Active Active Problems Problem Noted Date Diagnosed Date [...] office visit and she was sent to [facility] emergency room for further evaluation. Snoring 12/14/2021 [...] was called and she will present to [facility] emergency room for further evaluation. Assessment & [...] Encounters Date Type Department Care Team Description 07/04/2024 12:30 PM EST Ancillary Procedure [facility] - [address] [place] [address] Coronary artery disease involving [place] coronary artery of [place] heart without angina pectoris 05/21/2024 12:30 PM EST Ancillary Procedure [facility] - [address] [place] [address] Coronary artery disease involving [place] coronary artery of ey[place] heart without angina pectoris from Last 3 Months Surgical History Surgery Date Site/Laterality Comments OTHER SURGICAL HISTORY PROCEDURE: HISTORY OTHER; COMMENT: RCA and LAD w/ left circumflex stent patent CARDIAC CATHETERIZATION 08/2018 PROCEDURE: HISTORICAL CARDIAC CATH OTHER SURGICAL HISTORY PROCEDURE: NM PATIENT HAS A CORONARY ARTERY STENT CARDIAC SURGERY 11/05/2017 PROCEDURE: HISTORICAL HEART SURGERY(ASD,VSD,VALVES) OTHER SURGICAL HISTORY 06/28/2017 PROCEDURE: HISTORICAL TOTAL HYSTERECTOMY W/O BSO OTHER SURGICAL HISTORY 06/08/2017 PROCEDURE: NM LAPAROSCOPY W/LYSIS OF ADHESIONS OTHER SURGICAL HISTORY 08/17/2016 PROCEDURE: NM ENDOSCOPY UPPER SMALL INTESTINE COLONOSCOPY 08/17/2016 PROCEDURE: HISTORICAL COLONOSCOPY BACK SURGERY 05/08/1989 PROCEDURE: HISTORICAL BACK SURGERY SECTION 1991 PROCEDURE: HISTORICAL DELIVERY SECTION 1993 PROCEDURE: HISTORICAL DELIVERY Medical History Medical History Date Comments Covid-19 DX:COVID-19 Asthma DX:Asthma CTS (carpal tunnel syndrome) DX: CTS (carpal tunnel syndrome) DM (diabetes mellitus) ([facility]/HCC) DX:DM (diabetes mellitus) (HCC) Fibromyalgia DX:Fibromyalgia GERD (gastroesophageal reflux disease) DX:GERD [...] drink = 0.6 oz pur e alcohol) Comments Unknown Sex and Gender Information Value Date Recorded Sex Assigned at Not on file Legal Sex Female 2:32 PM EST Gender Identity Not on file Sexual Orientation Not on file Obstetrics History Last Filed [...] Care Team (Late st Contact Info) Description 08/07/2024 9:50 AM EDT Office Visit [facility] [address] [place] [address] Henrry Whittaker MD [address] [place] [address] [address] [place] [address] Health Maintenance Due Date Last Done Comments [...] Health Screening 04/06/2022 Influenza Vaccine (#1) 2024 , 09/27/2021, 02/01/2020, Additional history exists Diabetes: Annual Urine Albumin-Creatinine Ratio (uACR) 04/19/2024 Diabetes: Blood Sugar Control Test (HGBA1C) 04/19/2024 Diabetes: Annual GFR (Glomerular Filtration Rate) 04/19/2025 04/19/2024 Hypertension/CHF/CAD Annual BMP Blood Test 04/19/2025 04/19/2024 DTaP,Tdap,and Td Vaccines (2 - Td or Tdap) 07/20/2027 07/19/2017 Cholesterol Screening (Lipid Panel) 04/19/2029 04/19/2024 Pneumococcal Vaccine: 50+ Years Completed 12/26/2023, 07/19/2017 Pneumococcal Vaccine: Pediatrics (0 to 5 Years) [...] patient's age to complete this topic Meningococcal B Vacine Aged Out No lo nger eligible based on patient's age to complete [...] 3:30 PM EST Coronary artery disease involving [place] coronary artery of ey[place] heart without angina pectoris COMPREHENSIVE METABOLIC PANEL Routine 04/19/2024 8:40 AM EST LIPID PANEL Routine 04/19/2024 8:40 AM EST from Last 3 Months or Most Recently Relevant to Health Maintenance Results * NM EXERCISE STRESS TEST W/ MYOCARDIAL PERFUSION (05/21/2024 3:30 PM EST) Pathologist [facility] Exercise/inject ion duration (min) 6 CV PACS [...] few months. Evaluate for ischemic burden. A vulnerability researcher was used during the test. The ECG [...] Abnormal: 0.00% Melody Collins NP CV STRESS PROCEDURES Final Result * (ABNORMAL) Lipid panel (04/19/2024 8:40 AM [...] PM EST Performed at: ??01 - [facility] [address] ??[id number] [employer]: Lizzy Sharma MD, Phone: ??[phone] Melody Collins NP LAB BLOOD ORDERABLES Final Result [facility] 1 * (ABNORMAL) Comprehensive metabolic panel [...] PM EST Performed at: ??01 - [facility] [address] ??[id number] [employer]: Lizzy Sharma MD, Phone: ??[phone] Melody Collins AURIST LAB BLOOD ORDERABLES Final Result [facility] 1 from Last 3 Months or Most Recently Relevant to Health Maintenance Insurance [facility] MEDICAID ADVANTAGE Care Teams Director Sterile Processing Relationship Specialty Start Date End Date Justina Cabezas MD [address] [place] [phone] PCP - General 04/24/23
--- OUTSIDE RECORDS SUMMARY | 2024-07-22 15:02 | XMS_ITS | Encounter Summary ---
Author Organization [email or web address] Address [address] [place] [address] Care Team Providers Care Project Coordinator Name Role Phone Justina Cabezas MD Primary Care Provider + Reason for Visit * Imaging (Routine) - Closed Specialty Diagnoses / Procedures Referred By Contac t Referred To Contact Cardiology Diagnoses Coronary artery disease involving [place] coronary artery of [place] heart without angina pectoris Procedures Transthoracic echocardiogram (TTE) complete with PRN contrast, bubble, strain, and 3D order panel NE TTE W 2D IMAGE COMPLETE W DOPPLER ECHO & COLOR FLOW DOPPLER ECHO NE ANGELIKA 2D COMPLETE W/CONTRAST OR W & WO CONTRAST WITH DOPPLER Melody Collins NP [address] [place] [address] Dr [address] [place] [address] Phone: tel: fax: [facility] Referral ID Status Reason Start Date Expiration Date Visits Re quested Visits Authorized [id number] Closed 04/19/2024 04/19/2025 1 1 Encounter Details Date Type Department Care Team (Latest Contact Info) Description 07/04/2024 12:30 PM EST Ancillary Procedure [facility] - [address] [place] [address] Coronary artery disease involving [place] coronary artery of [place] heart without angina pectoris Social History Tobacco [...] on file Sexual Orientation Not on file documented as of this encounter Plan of Treatment Upcoming Encounters Date Type Department Care Team (Late st Contact Info) Description 08/07/2024 9:50 AM EDT Office Visit [facility] [address] [place] [address] [address] [place] [address] Henrry Whittaker MD [address] [place] [address] [address] [place] [address] Pending Results Name Type Priority Associated Diagnoses Date/Time Transthoracic echocardiogram (TTE) complete with PRN contrast, bubble, strain, and 3D order panel Echocardiography Routine Coronary artery disease involving [place] coronary artery of [place] heart without angina pectoris 07/04/2024 1:13 PM EST documented as of this encounter Visit Diagnoses Diagnosis Coronary artery disease involving [place] coronary artery of [place] heart without angina pectoris documented in this encounter Care Teams Project Coordinator Relationship Specialty Start Date End Date Justina Cabezas MD [address] [place] [phone] PCP - General 04/24/23 documented as of this encounter
== END 2024-07-22 12:53 | disposition home or self-care (01) ==
LOC: HO.MRI 12:52
PROVIDERS: PCP Family Medicine; Visit Provider Nurse Practitioner Family
DX: N28.89 Other specified disorders of kidney and ureter (principal)
CPT/HCPCS: 74183; A9585

== ENCOUNTER → 2024-07-22 13:15 | Outpatient (BNV) | payer OTHER, SELFPAY | PROVIDERS: PCP Family Medicine; Visit Provider Radiology Diagnostic Radiology | DX: N28.89 Other specified disorders of kidney and ureter (principal) | CPT/HCPCS: 74183 ==

== ENCOUNTER 2024-07-29 12:28 | Outpatient (AMB) | payer OTHER, SELFPAY ==
--- NOTE | 2024-07-29 13:03 | MHC.OFFVIS ---
Intake Visit Reasons: 6 month follow up/ MRI(set) Intake Note: Patient presents today for follow up on: Renal mass, renal cyst, nephrolithiasis, and MRI results Imaging Completed: 07/22/24 Urology Medications: none Blood Thinner: aspirin, clopidogrel System Developer Associate Manager Required: No Accompanied by: Spouse Allergies dulaglutide Allergy (Verified 07/29/24 13:27) pancreatitis morphine Allergy (Verified 07/29/24 13:27) headache, nausea, vomiting metformin Adverse Reaction (Verified 07/29/24 13:27) Diarrhea Medication List - Last Reconciled 07/29/24 by GORDON Sousa- albuterol sulfate mg inhalation amitriptyline mg PO amlodipine 2.5 mg PO DAILY aspirin (Adult Low Dose Aspirin) 81 mg PO DAILY atorvastatin 80 mg PO DAILY blood-glucose sensor (Streem G7 Sensor device) As directed buspirone 30 mg PO BID carvedilol 25 mg PO BID celecoxib 200 mg PO DAILY PRN clopidogrel 75 mg PO DAILY duloxetine 120 mg PO DAILY escitalopram oxalate mg PO flash glucose sensor (Bearch Prateek 14 Day Sensor kit) As directed glipizide 10 mg PO DAILY insulin regular hum U-500 conc (Humulin R U-500 (Conc) Insulin Kwikpen) units subcut levothyroxine 88 mcg PO DAILY lidocaine 5% 1 patch topical DAILY linaclotide (Linzess) 145 mcg PO DAILY magnesium 250 mg PO DAILY melatonin 3 mg PO BEDTIME metoclopramide HCl 5 mg PO QID nitroglycerin 0.4 mg sublingual DAILY pantoprazole 40 mg PO DAILY pregabalin 75 mg PO TID ranolazine ER 1,000 mg PO BID trazodone 50 mg PO BEDTIME valsartan mg PO HPI Comments Details: Asia is a pleasant 53 year old female patient of Dr. Cabezas who was accompanied by her significant other at today's office visit. She has a past medical history of obesity, recurrent incisional hernias, NSTEMI, insomnia, hypothyroidism, hypertension, hyperlipidemia, GERD, fibromyalgia, diabetes, CVA, coronary artery disease, and carpal tunnel syndrome. She presents to the office today for follow-up of her renal cyst. MRI renal mass protocol results reviewed with the patient today 07/30 findings consistent with a 2 mm right renal angiolipoma. 1.3 cm Bosniak 2 F lesion at the upper pole of the left kidney which recommendations per radiology report is continued follow-up. Previous workup has included CT as well as renal ultrasound: CT 12/29 noting area of concern in the right kidney appears to be a 5 mm hypodensity which is likely a small angiolipoma but because of its tiny size and partial volume averaging, this diagnosis can not be made with certainty. There is a 1.8 cm mass in the left kidney which is not really visible on the contrast imaging. This likely represents a complex cyst. Renal ultrasound 10/29 noted 0.6 cm echogenic focus in the cortex of the medial mid right kidney which may represent a small angiolipoma. Normal appearance of left kidney. 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 She otherwise denies any bothersome urinary issues or concerns. She denies urinary urgency, urinary frequency, incontinence, nocturia, hematuria, dysuria, foul smelling urine, changes to urinary stream, fever, and or chills. She is happy with her current voiding parameters. Discussed at length renal cysts classification and importance of surveillance monitoring. She discusses continuing to follow-up with PCP and endocrinology regarding her uncontrolled diabetes. She reports being started on insulin and how helpful this has been in lowering her A1c. She otherwise offers no other issues or concerns at this time. Plan I have planned for a follow-up ultrasound in six months to monitor the renal lesions, given the stable findings of a right kidney angiolipoma and a left kidney Bosniak 2F cyst. Continued surveillance without immediate intervention is appropriate, as no significant growth was observed. For diabetes management, maintaining insulin therapy remains critical, with a focus on reducing the A1c to below 6% for improved diabetic control. Patient was informed and verbally consented to the use of an ambient scribe for clinic note documentation during this visit. Discussion Notes During today's visit, I discussed with the patient the stable findings of her kidney lesions, including a 2 mm angiolipoma on the right and a 1.3 cm Bosniak 2F cyst on the left. Surveillance monitoring was described as the best course of action, with an ultrasound planned for six months. We examined the potential for these lesions to remain stable but acknowledged the importance of watchful follow-up. As for her diabetes, we focused on maintaining optimal glucose levels via insulin therapy and anticipated the benefits of her new insulin pump. Risks of rapid deterioration in glucose management were discussed, highlighting the potential for kidney complications if hyperglycemia persists. The patient expressed understanding and is committed to consistent monitoring and following the treatment plan. COUNT INCLUDES THE [facility] Medical History delivery delivered Severe obesity (BMI 35.0-39.9) with comorbidity Recurrent incisional hernia Intraductal papilloma of right breast NSTEMI (non-ST elevated myocardial infarction) Insomnia Hypothyroid HTN (hypertension) HLD (hyperlipidemia) GERD (gastroesophageal reflux disease) Fibromyalgia Diabetes mellitus CVA (cerebral vascular accident) CTS (carpal tunnel syndrome) CAD (coronary artery disease) Surgical History History of hernia repair History of back surgery History of hysteroscopy S/P laparoscopy with lysis of adhesions History of total abdominal hysterectomy H/O heart surgery Stented coronary artery Social History Alcohol intake: former Patient Tobacco Use Status: Former Tobacco user Review of Systems Eyes Reports no additional complaints ENT Reports no additional complaints Card Reports as per HPI Resp Reports no additional complaints GI Reports as per HPI Reports as per HPI Musc Reports as per HPI Neuro Reports as per HPI Psych Reports no additional complaints Endo Reports as per HPI Physical Exam Const General: cooperative, healthy appearing, comfortable, no acute distress, well developed, alert and awake Nutritional Appearance: overweight Orientation/consciousness: patient oriented x3 Limitations: no limitations HEENT Head: Yes normal to inspection, Yes normocephalic and Yes atraumatic Ears: hearing grossly normal bilaterally Eyes General: appearance normal, both eyes and all related structures Neck Neck: Yes normal visual inspection and Yes trachea midline Chest Chest palpation & inspection: normal inspection of the chest Resp Effort & Inspection: normal respiratory effort and able to speak in complete sentences Cardio Rate: regular rate GI Inspection: Yes normal to inspection General: Yes no CVA tenderness Back/Spine/Pelvis Back: no CVA tenderness Skin General skin exam: no rashes or lesions noted Neuro General: patient oriented x3 Extrem General: Yes normal to inspection Psych Appearance: grossly normal and well kempt Mental Status: mental status grossly normal Speech and movement: Normal speech and movement present and Clear speech present Affect: normal affect Attitude: cooperative Thought process: Normal thought process present Thought content: Normal thought content present Insight: Fair insight present (Psych) Judgement: Fair judgement present (Psych) Results AMB Urinalysis, Automated UA Leukoctes 15 Annelise/uL Last Edit by Tayler Oscra on 07/29/24 13:38 UA Nitrite Negative Last Edit by [employer] on 07/29/24 13:38 UA Urobilinogen 0.2 mg/dL Last Edit by [employer] on 07/29/24 13:38 UA Protein 15 mg/dL Last Edit by [employer] on 07/29/24 13:38 UA pH 6.0 Last Edit by [employer] on 07/29/24 13:38 UA Blood 0 Albino/uL Last Edit by [employer] on 07/29/24 13:38 UA Specific [place] 1.030 Last Edit by [employer] on 07/29/24 13:38 UA Ketone Negative Last Edit by [employer] on 07/29/24 13:38 UA Bilirubin 1 mg/dL Last Edit by [employer] Kuaile[employer]ueel[employer] on 07/29/24 13:38 UA Glucose 2 mg/dL Last Edit by [employer]oyo Kuailexueeliot on 07/29/24 13:38 Results Reviewed Results Reviewed: Laboratory Last Values Urine pH (Auto) 6.0 07/29/24 13:16 Specific [place] (Auto) 1.030 07/29/24 13:16 Urine Protein (Auto) 15 mg/dL 07/29/24 13:16 Glucose (UA)(Auto) 2 mg/dL 07/29/24 13:16 Urine Ketones (Auto) Negative 07/29/24 13:16 Urine Blood (Auto) 0 Albino/uL 07/29/24 13:16 Urine Nitrite (Auto) Negative 07/29/24 13:16 Urine Bilirubin (Auto) 1 mg/dL 07/29/24 13:16 Urine Urobilinogen (Auto) 0.2 mg/dL 07/29/24 13:16 Leukocyte Esterase (Auto) 15 Annelise/uL 07/29/24 13:16 Date of Service: 07/22/24 Procedure(s): MR abdomen wo/w con FINDINGS: The kidneys are normal in size and contour. There is no hydronephrosis. There is a 2 mm T1 hyperintense focus at the anterior aspect of the mid to upper pole of the right kidney. This appears to demonstrate loss of signal intensity on fat-suppressed images consistent with fat in a tiny angiomyolipoma. This lesion is unchanged from the prior MRI. The right kidney is otherwise unremarkable. The left kidney demonstrates a 1.3 cm T2 hyperintense lesion at the upper pole which demonstrates multiple internal septations. There is enhancement of the septations after the administration of intravenous gadolinium. Findings are consistent with a complex cyst (Bosniak IIF lesion). No additional left renal lesion is identified. There is no significant loss of signal intensity within the liver on opposed phase imaging to suggest steatosis. No enhancing liver mass is identified. The hepatic and portal veins are patent. There is no intra or extrahepatic biliary ductal dilatation. The gallbladder, spleen, pancreas, and adrenals are unremarkable. No retroperitoneal lymphadenopathy or ascites is identified in the upper abdomen. The visualized bones demonstrate normal signal intensity. IMPRESSION: 1. 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 2. 1.3 cm Bosniak 2F lesion at the upper pole of the left kidney. Continued follow-up is recommended. Assessment & Plan Assessment & Plan (1) Angiolipoma: Code(s): D17.9 - Benign lipomatous neoplasm, unspecified Category: Medical (2) Renal mass: Code(s): N28.89 - Other specified disorders of kidney and ureter Category: Medical (3) Renal cyst: Code(s): N28.1 - Cyst of kidney, acquired Category: Medical Plan In office urinalysis results reviewed with the patient today; as noted above. We discussed importance of management of diabetes for overall health and well-being. Recent MRI imaging results reviewed with the patient today; as noted above. We discussed importance of surveillance monitoring. Patient currently denies any bothersome urinary issues or concerns. She reports be happy with current voiding parameters. Will obtain renal ultrasound in 6 months. Follow-up in 6 months with imaging to be completed prior; or sooner with any issues, concerns, and or questions. Orders: Orders AMB Urinalysis Automated Today Z13.9 - Encounter for screening, unspecified US renal BI 6 Months D17.9 - Benign lipomatous neoplasm, unspecified, N28.1 - Cyst of kidney, acquired, N28.89 - Other specified disorders of kidney and ureter Patient Instructions: The patient had an opportunity to ask questions regarding the treatment plan. All questions were answered. Physical exam, labs, and imaging were discussed and reviewed in detail. As well as risks, benefits, and discussion of treatment choices. No major barriers to understanding were identified. The patient expressed understanding and agreement with the above treatment plan. The patient was made aware they should contact our office by phone for worsening of their current condition, the appearance of new symptoms, or with any questions or concerns. Compliance is encouraged with any medications and follow up testing that is ordered. It is a privilege to be allowed the opportunity to participate in? your urological care.? Again, if you have any questions or concerns If you have any questions or concerns please do not hesitate to contact me. The office is [phone]. This note is constructed using voice recognition software. While every effort has been made to ensure accuracy slot operations director errors may have been included. Yours sincerely, ELVIS Sousa Coding Level of Care Code Est Pt Level 3 (84186) Complex EM visit Add On G2211 Diagnoses Angiolipoma D17.9 Renal mass N28.89 Renal cyst N28.1
== END 2024-07-29 13:22 | disposition home or self-care (01) ==
LOC: HO.HUSH 12:29
PROVIDERS: PCP Family Medicine; Visit Provider Nurse Practitioner Family
DX: D17.9 Benign lipomatous neoplasm, unspecified (principal); N28.89 Other specified disorders of kidney and ureter; N28.1 Cyst of kidney, acquired; Z13.9 Encounter for screening, unspecified
CPT/HCPCS: 99213; G2211

== ENCOUNTER → 2024-07-29 12:28 | Outpatient (BNVA) | payer OTHER, SELFPAY | PROVIDERS: PCP Family Medicine; Visit Provider Nurse Practitioner Family | DX: N28.1 Cyst of kidney, acquired (principal); D17.9 Benign lipomatous neoplasm, unspecified; N28.89 Other specified disorders of kidney and ureter; Z87.442 Personal history of urinary calculi | CPT/HCPCS: 81003; 99212 ==

== ENCOUNTER 2024-11-29 11:08 | Outpatient (REF) | payer OTHER, SELFPAY ==
--- OUTSIDE RECORDS SUMMARY | 2024-11-29 11:18 | XMS_ITS | Clinical Summary ---
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 Active pregabalin (LYRICA) 300 mg capsule Take 1 capsule (300 mg total) by mouth 1 (one) time each day. Active valsartan (DIOVAN) 40 mg tablet Take 1 tablet (40 mg total) by mouth 1 (one) time each day. Active nitroglycerin (NITROSTAT) 0.4 mg SL tablet [...] mouth 1 (one) time each day. Active clopidogreL (PLAVIX) 75 mg tablet TAKE 1 TABLET BY MOUTH ONCE DAILY 90 tablet 1 06/17/2024 Active ranolazine (RANEXA) 1,000 mg 12 hr tablet TOME 1 TABLETA POR VIA ORAL DOS VECES AL XIMENA 180 tablet 1 09/05/2024 Active Active Problems Problem Noted Date Diagnosed Date Vasospastic angina (CMS/[facility] V24) 08/07/2024 Assessment & Plan (08/26/2024 11:37 AM EDT): The patient has a history of apparent vasospastic angina. She continues on medical therapy with amlodipine and ranolazine. 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 Will order a cardiac MRI for further evaluation of this apparent apical hypertrophic cardiomyopathy. Orders: MR Cardiac Morphology and Function wo and w Contrast Palpitations 08/07/2024 Assessment & Plan (08/26/2024 11:37 AM EDT): The patient has been experiencing episodes of palpitations. We will order a Holter monitor to evaluate for any underlying arrhythmias as a cause of her symptoms. Orders: Cardiac holter monitor (<= 48 hours); Future Carotid artery stenosis 04/19/2024 Assessment & Plan [...] clopidogrel, and statin. Orders: ECG 12 lead Snoring 12/14/2021 Overview (04/12/2024): Last Assessment & [...] was called and she will present to [facility] emergency room for further evaluation. Assessment & Plan (08/26/2024 11:37 AM EDT): The patient has a history of coronary artery disease status post multiple coronary artery stent placements in the past. She is currently on medical therapy with Norvasc 10 mg orally daily, carvedilol 25 mg orally twice daily, and ranolazine 1000 mg orally twice a day. She is also on dual antiplatelet therapy with aspirin and clopidogrel given her multiple coronary artery stent placements in the past. She is also on statin therapy with atorvastatin. Nuclear stress test from May 2024 did not show any evidence of ischemia or infarct. Nevertheless, on today's visit, the patient states that she continues to have episodes of chest discomfort which occur both at rest or with exertion. Her episodes of chest discomfort are happening despite her significant antianginal therapy with maximum dose amlodipine, maximum dose phrynolysin, and carvedilol 25 mg orally twice daily. Given her continued symptoms despite triple antianginal therapy, will refer the patient for further evaluation with a left heart catheterization to rule out the presence of significant underlying CAD as a cause of her symptoms. Orders: ECG 12 lead Assessment & Plan (04/19/2024 9:39 AM EST): [...] her next follow-up appointment. Assessment & Plan (08/26/2024 11:37 AM EDT): The patient has a history of hyperlipidemia. She is on atorvastatin. Will continue her current therapy. Assessment & Plan (04/19/2024 9:39 AM EST): [...] in the emergency room. Assessment & Plan (08/26/2024 11:37 AM EDT): The patient has a history of arterial hypertension. The patient's blood pressure today was noted to be well controlled. We'll continue the current antihypertensive medication regimen. Assessment & Plan (04/19/2024 9:39 AM EST): Patient's blood pressure is well-controlled today. She will continue her current antihypertensive medication regimen as prescribed. Orders: Comprehensive metabolic panel; Future Comprehensive metabolic panel Resolved Problems Problem Noted Date Diagnosed Date Resolved Date Chest pain 04/24/2023 08/07/2024 Overview (04/12/2024): Last Assessment & Plan: Patient was reporting active chest discomfort during her office visit and she was sent to [facility] emergency room for further evaluation. Encounters Date Type Department Care Team Description 11/14/2024 Telephone [facility] [address] [place] [address] Henrry Whittaker MD 11/14/2024 Telephone [facility] [place] [facility] [address] [place] [address] Henrry Whittaker MD 09/26/2024 1:20 PM EDT Lab Draw Station - [address] [place] [phone] Coronary atherosclerosis of [place] coronary artery (Primary Dx); Essential hypertension, benign; Bilateral carotid artery occlusion; Atherosclerotic heart disease of [place] coronary artery without angina pectoris; Primary hypertension 09/26/2024 Telephone [facility] [place] [facility] [address] [place] [address] Henrry Whittaker MD 09/03/2024 Telephone [facility] [place] [facility] [address] [place] [phone] Melody Collins NP holter results from Last 3 Months Surgical History Surgery Date Site/Laterality Comments OTHER SURGICAL HISTORY PROCEDURE: HISTORY OTHER; COMMENT: RCA and LAD w/ left circumflex stent patent CARDIAC CATHETERIZATION 08/2018 PROCEDURE: HISTORICAL CARDIAC CATH OTHER SURGICAL HISTORY PROCEDURE: RI PATIENT HAS A CORONARY ARTERY STENT CARDIAC SURGERY 11/05/2017 PROCEDURE: HISTORICAL HEART SURGERY(ASD,VSD,VALVES) OTHER SURGICAL HISTORY 06/28/2017 PROCEDURE: HISTORICAL TOTAL HYSTERECTOMY W/O BSO OTHER SURGICAL HISTORY 06/08/2017 PROCEDURE: RI LAPAROSCOPY W/LYSIS OF ADHESIONS OTHER SURGICAL HISTORY 08/17/2016 PROCEDURE: RI ENDOSCOPY UPPER SMALL INTESTINE COLONOSCOPY 08/17/2016 PROCEDURE: HISTORICAL COLONOSCOPY BACK SURGERY 05/08/1989 PROCEDURE: HISTORICAL BACK SURGERY SECTION 1991 PROCEDURE: HISTORICAL DELIVERY SECTION 1993 PROCEDURE: HISTORICAL DELIVERY CARDIAC CATHETERIZATION DONE ON 09/19/2024 [facility] [place] INDICATIONS: Chest pain. Medical History Medical History Date Comments Covid-19 DX:COVID-19 Asthma DX:Asthma CTS (carpal tunnel syndrome) DX: CTS (carpal tunnel syndrome) DM (diabetes mellitus) ([facility] V24, [facility] V28) DX:DM (diabetes mellitus) (H CC) Fibromyalgia DX:Fibromyalgia GERD (gastroesophageal reflux disease) DX:GERD [...] Sign Reading Time Taken Comments Blood Pressure 120/80 08/07/2024 9:42 AM EDT Pulse 79 08/07/2024 9:42 AM EDT Temperature - - Respiratory Rate - - Oxygen Saturation 98% 08/07/2024 9:42 AM EDT Inhaled Oxygen Concentration - - Weight 90.8 kg (200 lb 3.2 oz) 08/07/2024 9:42 A M EDT Height 157.5 cm (5' 2 ) 08/07/2024 9:42 AM EDT Body Mass Index 36.62 08/07/2024 9:42 AM EDT Plan of Treatment Upcoming Encounters Date Type Department Care Team (Late st Contact Info) Description 12/30/2024 12:40 PM EDT Office Visit [facility] [place] [phone] Radha Foster NP [address] [place] [address] [place] [address] Health Maintenance Due Date Last Done Comments Breast Cancer Screening 1970 Hepatitis B Vaccines (1 of 3 - 19+ 3-dose series) 1989 Cervical Cancer Screening: Pap Smear 1991 Zoster Vaccines (1 of 2) 2020 Colorectal Cancer Screening: Colonoscopy 04/06/2022 HIV Screening 04/06/2022 Hepatitis C Screening 04/06/2022 Social Influencers of Health Screening 04/06/2022 COVID-19 Vaccine ( season) 2024 12/07/2020, 11/16/2020 Depression Screening 05/08/2024 Influenza Vaccine (#1) 2025 , 09/27/2021, 02/01/2020, Additional history exists Hypertension/CHF/CAD Annual BMP Blood Test 11/19/2025 11/19/2024, 09/26/2024, 09/24/2024, Additional history exists DTaP,Tdap,and Td Vaccines (2 - Td or Tdap) 07/20/2027 07/19/2017 Cholesterol Screening (Lipid Panel) 11/19/2029 11/19/2024, 11/19/2024, 09/26/2024, Additional history exists Pneumococcal Vaccine: 50+ Years Completed 12/26/2023, 07/19/2017 HIB Vaccines Aged Out [...] age to complete this topic Meningococcal B Vaccine Aged Out No l onger eligible based on patient's age to complete this topic RSV Immunization Patients Under 20 months Aged Out No longer eligible based on patient's age to complete this topic Varicella Vaccines Aged Out No longer eligible based on patient's age to complete this topic Procedures Procedure Name Priority Date/Time Associated Diagnosis Comments LDL CHOLESTEROL, DIRECT Routine 11/19/2024 8:55 AM EDT Aths[place] heart disease of [place] cor art w oth ang pctrs ([facility] V24) LIPID PANEL WITH REFLEX TO DIRECT LDL Routine 11/19/2024 8:55 AM EDT Athscl heart disease of [place] cor art w oth ang pctrs (CMS/HCC V24) COMPREHENSIVE METABOLIC PANEL Routine 11/19/2024 8:55 AM EDT Coronary artery disease involving [place] coronary artery of [place] heart with other form of angina pectoris (CMS/HCC V24) CBC WITH AUTO DIFFERENTIAL Routine 09/26/2024 1:20 PM EDT Atherosclerotic heart disease of [place] coronary artery without angina pectoris COMPREHENSIVE METABOLIC PANEL STAT 09/26/2024 1:20 PM EDT Primary hypertension PROTHROMBIN TIME WITH INR Routine 09/26/2024 1:20 PM EDT Atherosclerotic heart disease of [place] coronary artery without angina pectoris CBC AND DIFFERENTIAL Routine 09/26/2024 1:20 PM EDT Atherosclerotic heart disease of [place] coronary artery without angina pectoris MAGNESIUM Routine 09/26/2024 1:19 PM EDT Coronary atherosclerosis of [place] coronary artery Essential hypertension, benign Bilateral carotid artery occlusion LIPID PANEL WITH REFLEX TO DIRECT LDL Routine 09/26/2024 1:19 PM EDT Coronary atherosclerosis of [place] coronary artery Essential hypertension, benign Bilateral carotid artery occlusion BASIC METABOLIC PANEL Routine 09/24/2024 10:25 AM EDT from Last 3 Months Results * (ABNORMAL) Lipid panel with reflex to direct LDL (11/19/2024 8:55 AM EDT) Only the most recent of2 resultswithin the time period is included. Cholesterol 281(H) 0 - 200 mg/dL LAB CHEMISTRY METHOD 11/19/2024 12:47 PM [facility] Triglycerides 526(H) 0 - 150 mg/dL LAB CHEMISTRY METHOD 11/19/2024 12:47 PM [facility] HDL 57 >=40 mg/dL LAB CHEMISTRY METHOD 11/19/2024 12:47 PM [facility] LDL Calculated LAB CHEMISTRY METHOD 11/19/2024 12:47 PM [facility] Comment: Unable to calculate when triglycerides >400 mg/dL. Triglyceride value is >= 500. Calculated LDL is not meaningful. Direct LDL has been added. VLDL Cholesterol [place] LAB CHEMISTRY METHOD 11/19/2024 12:47 PM [facility] Comment:Unable to calculate when triglycerides >400 mg/dL. Non HDL Chol. (LDL+VLDL) LAB CHEMISTRY METHOD 11/19/2024 12:47 PM [facility] Comment:Unable to calculate when triglycerides >400 mg/dL. Chol/HDL Ratio 4.9(H) 0.0 - 4.4 LAB CHEMISTRY METHOD 11/19/2024 12:47 PM [facility] Blood Venous blood specimen / Unknown Venipuncture / Unknown 11/19/2024 8:55 AM EDT 11/19/2024 10:45 AM EDT us Henrry Whittaker MD LAB BLOOD ORDERABLES F inal Result Performing Organization Address [facility]/ZIP Co de Phone Number [facility] [address] [place] [address], [place] [phone] * (ABNORMAL) LDL cholesterol, direct (11/19/2024 8:55 AM EDT) Pathologist [facility] LDL Direct 168(H) <=100 mg/dL LAB CHEMISTRY METHOD 11/19/2024 12:59 PM EDT [facility] Blood Venous blood specimen / Unknown Venipuncture / Unknown 11/19/2024 8:55 AM EDT 11/19/2024 10:45 AM EDT Henrry Whittaker MD LAB BLOOD ORDERABLES F inal Result Performing Organization Address [facility] de Phone Number [facility] [address] [place] [address], [place] [phone] * (ABNORMAL) Comprehensive metabolic panel (11/19/2024 8:55 AM EDT) Only the most recent of2 resultswithin the time period is included. Pathologist [facility] Sodium 136 133 - 145 mmol/L LAB CHEMISTRY METHOD 11/19/2024 12:44 PM EDT [facility] Potassium 4.0 3.5 - 5.5 mmol/L LAB CHEMISTRY METHOD 11/19/2024 12:44 PM EDT [facility] Chloride 101 96 - 110 mmol/L LAB CHEMISTRY METHOD 11/19/2024 12:44 PM EDT [facility] CO2 26 21 - 32 mmol/L LAB CHEMISTRY METHOD 11/19/2024 12:44 PM EDT [facility] Anion Gap 9 3 - 11 LAB CHEMISTRY METHOD 11/19/2024 12:44 PM [facility] Glucose 252(H) 70 - 100 mg/dL LAB CHEMISTRY METHOD 11/19/2024 12:44 PM [facility] BUN 9 5 - 25 mg/dL LAB CHEMISTRY METHOD 11/19/2024 12:44 PM [facility] Creatinine 0.62 0.50 - 1.10 mg/dL LAB CHEMISTRY METHOD 11/19/2024 12:44 PM [facility] eGFR 106 >=60 mL/min/1. 73m2 LAB CHEMISTRY METHOD 11/19/2024 12:44 PM [facility] Comment:Calculation based on the Chronic Kidney Disease Epidemiology Collaboration (CKD-EPI) equation refit without adjustment for race. BUN/Creatinine Ratio 14.5 LAB CHEMISTRY METHOD 11/19/2024 12:44 PM [facility] Calcium 8.8 8.5 - 10.5 mg/dL LAB CHEMISTRY METHOD 11/19/2024 12:44 PM [facility] AST (SGOT) 19 10 - 42 unit/L LAB CHEMISTRY METHOD 11/19/2024 12:44 PM [facility] ALT (SGPT) 32 10 - 60 unit/L LAB CHEMISTRY METHOD 11/19/2024 12:44 PM [facility] Alkaline Phosphatase 128(H) 42 - 121 unit/L LAB CHEMISTRY METHOD 11/19/2024 12:44 PM [facility] Total Protein 6.2 6.0 - 8.0 g/dL LAB CHEMISTRY METHOD 11/19/2024 12:44 PM [facility] Albumin 3.2 3.2 - 5.0 g/dL LAB CHEMISTRY METHOD 11/19/2024 12:44 PM [facility] Total Bilirubin 0.4 0.0 - 1.4 mg/dL LAB CHEMISTRY METHOD 11/19/2024 12:44 PM [facility] Blood Venous blood specimen / Unknown Venipuncture / Unknown 11/19/2024 8:55 AM EDT 11/19/2024 10:45 AM EDT Henrry Whittaker MD LAB BLOOD ORDERABLES F inal Result [facility] [address] [place] [address], * (ABNORMAL) CBC auto differential (09/26/2024 1:20 PM EDT) WBC 5.7 4.8 - 10.8 K/mcL LAB HEMETOLOGY METHOD 09/26/2024 1:46 PM EDT [facility] RBC 4.80 3.80 - 4.80 M/mcL LAB HEMETOLOGY METHOD 09/26/2024 1:46 PM EDT [facility] Hemoglobin 13.4 11.5 - 16.0 g/dL LAB HEMETOLOGY METHOD 09/26/2024 1:46 PM EDT [facility] Hematocrit 42.3 35.0 - 47.0 % LAB HEMETOLOGY METHOD 09/26/2024 1:46 PM EDT [facility] MCV 88.7 79.0 - 98.0 FL LAB HEMETOLOGY METHOD 09/26/2024 1:46 PM EDT [facility] MCH 28.1 27.0 - 32.0 pcg LAB HEMETOLOGY METHOD 09/26/2024 1:46 PM EDT [facility] MCHC 31.7(L) 32.0 - 37.0 g/dL LAB HEMETOLOGY METHOD 09/26/2024 1:46 PM EDT [facility] RDW 14.0 11.0 - 15.0 % LAB HEMETOLOGY METHOD 09/26/2024 1:46 PM EDT [facility] Platelets 253 130 - 400 K/mcL LAB HEMETOLOGY [facility]24 [facility] MPV 10.2 7.0 - 11.0 FL LAB HEMETOLOGY METHOD 09/26/2024 1:46 PM [facility] NRBC 0.0 <1.0 % LAB HEMETOLOGY METHOD 09/26/2024 1:46 PM [facility] NRBC Absolute 0.00 <0.10 K/mcL LAB HEMETOLOGY METHOD 09/26/2024 1:46 PM [facility] Neutrophils Relative 63.6 % LAB HEMETOLOGY METHOD 09/26/2024 1:46 PM [facility] Lymphocytes Relative 28.5 % LAB HEMETOLOGY METHOD 09/26/2024 1:46 PM [facility] Monocytes Relative 5.5 % LAB HEMETOLOGY METHOD 09/26/2024 1:46 PM [facility] Eosinophils Relative 1.8 % LAB HEMETOLOGY METHOD 09/26/2024 1:46 PM [facility] Basophils Relative 0.2 % LAB HEMETOLOGY METHOD 09/26/2024 1:46 PM [facility] Immature Granulocytes Relative 0.4 % LAB HEMETOLOGY METHOD 09/26/2024 1:46 PM [facility] Neutrophils Absolute 3.62 1.50 - 7.00 K/mcL LAB HEMETOLOGY METHOD 09/26/2024 1:46 PM [facility] Lymphocytes Absolute 1.62 1.00 - 5.00 K/mcL LAB HEMETOLOGY METHOD 09/26/2024 1:46 PM [facility] Monocytes Absolute 0.31 0.20 - 1.00 K/mcL LAB HEMETOLOGY METHOD 09/26/2024 1:46 PM [facility] Eosinophils Absolute 0.10 0.00 - 0.50 K/[facility] LAB HEMETOLOGY METHOD 09/26/2024 1:46 PM EDT [facility] Basophils Absolute 0.01 0.00 - 0.20 K/[facility] LAB HEMETOLOGY METHOD 09/26/2024 1:46 PM EDT [facility] Immature Granulocytes Absolute 0.02 0.00 - 0.03 K/[facility] LAB HEMETOLOGY METHOD 09/26/2024 1:46 PM EDT [facility] Blood Venous blood specimen / Unknown Venipuncture / Unknown 09/26/2024 1:20 PM EDT 09/26/2024 1:40 PM EDT Henrry Whittaker MD LAB BLOOD ORDERABLES F inal Result Performing Organization Address City/[facility]/ZIP Co de Phone Number [facility] [address] [place] [address], [place] [phone] * Prothrombin time with INR (09/26/2024 1:20 PM EDT) [facility] Protime 10.8 10.6 - 13.9 sec LAB COAGULATION METHOD 09/26/2024 2:10 PM EDT [facility] INR 0.9 LAB COAGULATION METHOD 09/26/2024 2:10 PM EDT [facility] Blood Venous blood specimen / Unknown Venipuncture / Unknown 09/26/2024 1:20 PM EDT 09/26/2024 1:40 PM EDT us Henrry Whittaker MD LAB BLOOD ORDERABLES F inal Result Performing Organization Address City/[facility]/ZIP Co de Phone Number [facility] [address] [place] [address], [place] [phone] * (ABNORMAL) Magnesium (09/26/2024 1:19 PM EDT) [facility] Magnesium 1.7(L) 1.9 - 2.6 mg/dL LAB CHEMISTRY METHOD 09/26/2024 2:20 PM EDT [facility] Blood Venous blood specimen / Unknown Venipuncture / Unknown 09/26/2024 1:19 PM EDT 09/26/2024 1:40 PM EDT Melody Collins NP LAB BLOOD ORDERABLES Final Result Performing Organization Address [facility]/State/[facility] Co de Phone Number [facility] [address] [place] [address], [place] [phone] * (ABNORMAL) Basic metabolic panel (09/24/2024 10:25 AM EDT) [facility] Glucose 285(H) 70 - 99 mg/dL [facility] 1 Blood Urea Nitrogen (BUN) 15 6 - 24 mg/dL [facility] 1 Creatinine 0.69 0.57 - 1.00 mg/dL [facility] 1 eGFR 103 >59 mL/min/1.7 3 [facility] 1 BUN/Creatinine Ratio 22 9 - 23 [facility] 1 Sodium 136 134 - 144 mmol/L [facility] 1 Potassium CANCELED mmol/L [facility] 1 Comment: Test not performed. Specimen is hemolyzed. Unable to obtain valid results. Result canceled by the ancillary. Chloride 101 96 - 106 mmol/L [facility] 1 Carbon Dioxide 12(L) 20 - 29 mmol/L [facility] 1 Comment:Verified by repeat analysis Calcium 8.9 8.7 - 10.2 mg/dL [facility] 1 09/24/2024 10:2 5 AM EDT 09/24/2024 Narrative [facility] 1 - 09/25/2024 5:07 PM EDT Performed at: [facility] [id number] Sheetmetal Worker: Lizzy Sharma MD, Phone: [phone] Henrry Whittaker MD LAB BLOOD ORDERABLES E dited Result - Final Performing Organization Address City/[facility]/ZIP Co de Phone Number [facility] 1 from Last 3 Months Insurance [employer] Care Teams Refrigeration Plant Operator Relationship Specialty Start Date End Date Justina Cabezas MD [address] [place] [phone] PCP - General 04/24/23
--- OUTSIDE RECORDS SUMMARY | 2024-11-29 11:18 | XMS_ITS | Data Portability ---
Author Organization [place] - Carlo Toney [facility], [facility] Address [address] [place] [address] Care Team Providers Care Sales Compensation Analyst Name Role Phone MOON KIRK Primary Care Provider Assessment Encounter Date Assessment Date Assessment LastModified by Organization Details LastModified Time 10/17/2024 10/17/2024 Assessment: Patient presents with symptoms that are consistent with patellofemoral syndrome such as tenderness over medial patellar border, pain with WB flexion movements, and positive Menard's sign. Patient also presents with symptoms that are consistent with trochanteric bursitis such as localized tenderness, IT band tightness, and positive Bereket's test. Plan: Continued PT is recommended at 2x/week for 6 weeks to decrease pain, improve hip strength, and increase participation in functional activities. [email or web address] Not available 10/17/2024 12:52:40 10/22/2024 10/22/2024 Assessment: Patient presents with fair carrie to initiation of rx. Fatigued quickly throughout session, but able to complete w/o increasing pain. Plan: Cont POC. Not available 10/22/2024 16:18:30 10/24/2024 10/24/2024 Assessment: Patient presents with good carrie to progressions as charted and with initiation of leg press. Fatigued quickly throughout session, but able to complete all w/o increasing pain. Sore post rx. Calf raises performed for pressure relief of contralateral hip. Plan: Cont POC. Not available 10/24/2024 16:35:55 Plan of Treatment Reminders Order Date Submit Date Provider Last Modified By Organization Details Last Modified Time Details Appointments None recorded. Lab None recorded. Referral physical therapist referral - LEFT HIP 2024 025 [email or web address] Not available 16:49:07 physical therapist referral - L knee OA eval & tx 2024 025 [email or web address] [id number] [facility], [address], [place], [address], 12:12:02 Procedures None recorded. Surgeries None recorded. Imaging XR, hip + pelvis, unilateral , 2 or 3 view - LEFT HIP RM 111 2024 025 [email or web address] [facility], [address] [facility], [address], [address], 5 16:49:07 Medication Orders Celebrex 200 mg capsule 2024 025 [email or web address] [id number], [address] [place], [address], 11:37:48 Patient TargetsNo targets recorded. Patient InstructionsNo instructions recorded. Reason for Referral Physical Therapist Referral for Osteoarthritis of left knee joint L knee OAeval & tx Referring Physician: Eduard Cobos, Orthopedic Surgery, Encounter Date: 08/14/2024 Physical Therapist Referral for Trochanteric bursitis of left hip LEFT HIP Referring Physician: Manny Dickey, Orthopedic Surgery, Encounter Date: 09/02/2024 Results Created Date Observation Date Name Description Value Unit Range Abnormal Flag Note LastModifiedBy Organization Detail LastModifiedTime 09/03/19 25 09/02/2024 XR, hip + pelvi s, unila teral , 2 or 3 view http:/ [email or web address] ?Encry pted=s hAaTro YD8dLq bEUv6g %2BXZw aYqtaq 0bqfl% 2Fg9IQ a4ajBk vP9nXo QUaueC m3YtLR FvZlgJ JJ8mAn HZtai3 7h1287 AC0Kla n%2BDU KCuKiQ trMwF INTERFACE [facility] [address], [place], [address], 09/02/2024 13:47:01 09/03/19 25 09/02/2024 XR, hip + pelvi s, unila teral , 2 or 3 view [email or web address] ?Encry pted=s hAaTro YD8dLq bEUv6g %2BXZw aYqtaq 0bqfl% 2Fg9IQ a4ajBk vP9nXo QUaueC m3YtLR FvZlgJ JJ8mAn HZtai3 9c5490 AC0Kla n%2BDU KCuKiQ trMwF INTERFACE [facility] [address] [facility] [address], [place], [address], 09/02/2024 13:47:02 Result Notes Documentation Provider Name and Address Organization Details Recorded Time Xr, Hip + Pelvis, Unilateral, 2 Or 3 View : [email or web address] Encrypted=urVhDnsDB8bOyrO Uv6g%5VVGmwLpixn1qvya%2Fg 1MOu7thQdyQ6mZdMDfqqYs3Wg PTUhIcmQPK6lYnRMxyv93m973 1MV2Ivjj%2BDUKCuKiQtrMwF Not Available [facility] 09/02/2024 13:4 7:01 Xr, Hip + Pelvis, Unilateral, 2 Or 3 View : [email or web address] Encrypted=rsGpIdpDD8tGtyT Uv6g%5ZQZvrInecc8rjzp%2Fg 3EAr6frTdyV8cHeNFwplZk6Eu PJFuPsoQNB9uWwFUdvs84r627 6MJ6Omvz%2BDUKCuKiQtrMwF Not Available [facility] 09/02/2024 13:4 7:02 Problems Name Problem SNOMED Code Status Onset Date Resolution Date Notes Provider Name and Address Organization Details Recorded Time Pain of hip region 10552968 Active 2024 Aissatou houser [place] - [facility] 5 13:32:18 Trochanteri c bursitis of left hip 2989740504826 03 Active 2024 Aissatou Zimmermanalta null, [facility] 5 14:01:53 Bilateral trochanteri c bursitis 6204927913690 9109 Active 2024 Aissatou Zimmermanalta null, [facility] 5 14:02:02 Trochanteri c bursitis of right hip 6127551660938 00 Active 2024 Aissatou Zimmermanalta null, [facility] 5 14:02:02 Osteoarthri tis of left knee joint 0550315707194 09 Active 2024 Dejon Rodriguez DPT [address], [place], [address], [facility] 5 16:49:45 Problem Notes None recorded. Procedures Surgical History Date Name Laterality Status Provider Name and Address Organization Details Recorded Time 5 78279 Therapeutic Exercise (1:1) cancelled Dejon Rodriguez DPT [address], [place], [address], [facility] 10/29/2024 12:24:58 5 44781 Therapeutic Exercise (1:1) completed Abi Gallagher PTA [address], [place], [address], [facility] 10/24/2024 16:11:06 5 18899 Therapeutic Exercise (1:1) completed Abi Gallagher PTA [address], [place], [address], [facility] 10/22/2024 16:21:39 5 21738 Therapeutic Exercise (1:1) completed Dejon Rodriguez DPT [address], [place], [address], [facility] 10/17/2024 12:12:24 5 36591: Low complexity PT Eval completed Dejon Rodriguez, DPT [address], [place], [address], [facility] 10/17/2024 12:12:29 5 06440 Therapeutic Exercise (1:1) cancelled Dejon Rodriguez, DPT [address], [place], [address], [facility] 10/01/2024 16:47:14 5 59054: Low complexity PT Eval cancelled Dejon Rodriguez, DPT [address], [place], [address], [facility] 10/01/2024 16:47:04 5 JZHip Inj completed Manny iDckey PA-C [address], [place], [address], [facility] 09/02/2024 14:20:28 Imaging Results None recorded. Procedure Notes None recorded. Medical Equipment None Reported. Allergies Allergen ID Allergen Name Allergen Category Reaction Reaction Severity Criticality Documentation Date Start Date Code Code System Note Provider Name and Address Organization Details Recorded Time 667220 metformin hydrochlo ride medicatio n Not available Not available Not available 07/10/20232018 87301 3 RxNorm Not Available [facility] 4 16:13:44 921946 morphine sulfate medicatio n Not available Not available Not available 07/10/20232018 52138 RxNorm Not Available [facility] 4 16:13:44 766656 dulagluti de medicatio n Not available Not available Not available 01/30/2024 88414 91 RxNorm AISSATOU houser [facility] 4 08:48:09 145167 Jardiance medicatio n Not available Not available Not available 01/30/2024 06099 59 RxNorm AISSATOU houser [facility] 4 08:48:27 970456 Trulicity medicatio n Not available Not available Not available 01/30/2024 28380 96 RxNorm AISSATOU houser [place] - [facility] 4 08:48:33 Medications Name Sig Start Date Stop Date Status Note LastModified by Organization Details LastModified Time celecoxib 200 mg capsule TOME 1 C PSULA POR V A ORAL TODOS LOS D active Not Available Not Available No t Available buspirone 5 mg tablet active Not Available Not Available No t Available atorvastati n 80 mg tablet TAKE 1 TABLET BY MOUTH ONCE DAILY active Not Available Not Available No t Available carvedilol 25 mg tablet TAKE 1 TABLET BY MOUTH TWICE A DAY active Not Available Not Available No t Available albuterol sulfate 2.5 mg/3 mL (0.083 %) solution for nebulizatio n active Not Available Not Available Not Available trazodone 50 mg tablet TOME 1 TABLETA POR V A ORAL TODOS LOS D AL ACOSTARSE active Not Available Not Available No t Available azithromyci n 250 mg tablet active Not Available Not Available Not Available senna 8.6 mg tablet TAKE 2-4 TABS BY MOUTH EVERY DAY NEEDED FOR CONSTIPAT ION active Not Available Not Available No t Available meloxicam 15 mg tablet TODOS LOS D CUANDO SEA NECESARIO PARA EL DOLOR OK TO TAKE WITH TYLENOL BUT NO CELEBREX active Not Available Not Available No t Available sucralfate 1 gram tablet TAKE 1 TABLET BY MOUTH FOUR TIMES A DAY NEEDED FOR PAIN active Not Available Not Available No t Available FreeStyle Lancets 28 gauge USE DIRECTED FOR DIABETES CARE 4 TIMES PER DAY (OR 3 TIMES A DAY IF COVERED BY INSURANCE ) active Not Available Not Available No t Available ondansetron HCl 4 mg tablet active Not Available Not Available Not Available glipizide 10 mg tablet TOME 1 TABLETA POR V A ORAL TODOS LOS D active Not Available Not Available No t Available amlodipine 2.5 mg tablet TOME 1 TABLETA POR V A ORAL TODOS LOS D active Not Available Not Available No t Available melatonin 3 mg tablet TAKE 1 TABLET BY MOUTH ONCDE DAILY NEEDED active Not Available Not Available No t Available clopidogrel 75 mg tablet TAKE 1 TABLET BY MOUTH ONCE DAILY active Not Available Not Available No t Available aspirin 81 mg tablet,liza yed release active Not Available Not Available Not Available amitriptyli ne 50 mg tablet TAKE 1 TABLET BY MOUTH DAILY AT BEDTIME,I NSTR:INCR EASED DOSE. FOR PAIN AND SLEEP. ROMANIAN active Not Available Not Available No t Available acetaminoph en 500 mg tablet TOME DOS TABLETAS POR V A ORAL DIPTI VECES AL D A active Not Available Not Available No t Available acetaminoph en ER 650 mg tablet,exte nded release 2 TABLET BY MOUTH 3 TIMES A DAY,X30 DAYS. MAX 6 TABLETS/D AY. TO PREVENT PAIN FROM GETTING SEVERE. active Not Available Not Available No t Available levothyroxi ne 88 mcg tablet TAKE 1 TABLET BY MOUTH EVERY DAY active Not Available Not Available No t Available lorazepam 0.5 mg tablet PLEASE SEE ATTACHED FOR DETAILED DIRECTION S active Not Available Not Available No t Available metoclopram italia 5 mg tablet active Not Available Not Available Not Available gentamicin 0.3 % eye drops INSTILL 1 DROP IN BOTH EYES 4 TIMES A DAY FOR 7 DAYS active Not Available Not Available No t Available dexamethaso ne 1 mg tablet 1 TABLET BY MOUTH ONCE,INST R:TO BE TAKEN AT 11PM. GETS LABS DRAWN AT 8AM NEXT DAY active Not Available Not Available No t Available amitriptyli ne 10 mg tablet PLEASE SEE ATTACHED FOR DETAILED DIRECTION S active Not Available Not Available No t Available benzonatate 100 mg capsule active Not Available Not Available Not Available pantoprazol e 40 mg tablet,liza yed release active Not Available Not Available Not Available buspirone 30 mg tablet TOME 1 TABLETA POR V A ORAL DOS VECES AL D A active Not Available Not Available No t Available buspirone 10 mg tablet active Not Available Not Available Not Available hyoscyamine 0.125 mg sublingual tablet TAKE 1-2 TABLETS BY MOUTH SUBLINGUA LLY FOUR TIMES DAILY NEEDED FOR SPASM active Not Available Not Available No t Available lidocaine 5 % topical patch APPLY 1 PATCH TOPICALLY 2 TIMES A DAY NEEEDED FOR MILD PAIN, REMOVE AFTER 12 HOURS active Not Available Not Available No t Available polymyxin B sulfate 10,000 unit-trimet hoprim 1 mg/mL eye drops USE 1 DROP IN BOTH EVERY 3 HOURS,X7 DAYS,INST R:NOT TO EXCEED 6 DOSES/DAY active Not Available Not Available No t Available nitroglycer in 0.[address] 1 TABLET UNDER THE TONGUE EVERY 5 MINUTES IF NEEDED FOR CHEST PAIN. active Not Available Not Available No t Available omeprazole 20 mg capsule,del ayed release active Not Available Not Available Not Available bisacodyl 5 mg tablet,liza yed release TAKE 1 TABLET BY MOUTH TWICE A DAY FOR 14 DAYS NEEDED FOR CONSTIPAT ION active Not Available Not Available No t Available alcohol swabs USE DIRECTED FOR TYPE 2 DIABETES MELLITUS. USE AT LEAST 2X DAILY active Not Available Not Available No t Available ondansetron 4 mg disintegrat ing tablet TOME 1 TABLETA POR V A ORAL CADA 8 HORAS PARA LAS N USEAS Y EL V PHILLY POR 3 D active Not Available Not Available No t Available fluticasone propionate 50 mcg/actuati on nasal spray,suspe nsion USE 2 SPRAYS INTO EACH NOSTRIL ONCE DAILY DIRECTED active Not Available Not Available No t Available metformin ER 500 mg tablet,exte nded release 24 hr TOME 1 TABLETA POR V A ORAL TODOS LOS D active Not Available Not Available No t Available dicyclomine 10 mg capsule active Not Available Not Available Not Available ipratropium bromide 21 mcg (0.03 %) nasal spray active Not Available Not Available Not Available naproxen 500 mg tablet TAKE 1 TABLET BY MOUTH 2 TIMES DAILY (WITH MEALS) FOR 14 DAYS. active Not Available Not Available No t Available magnesium 250 mg (as magnesium oxide) tablet TOME KONSTANTIN TABLETA POR V A ORAL TODOS LOS D active Not Available Not Available No t Available buspirone 15 mg tablet TAKE 1 TABLET BY MOUTH TWICE A DAY active Not Available Not Available No t Available Heartburn Relief (famotidine ) 10 mg tablet active Not Available Not Available Not Available escitalopra m 10 mg tablet active Not Available Not Available Not Available escitalopra m 20 mg tablet active Not Available Not Available Not Available valsartan 40 mg tablet TOME 1 TABLETA POR V A ORAL DOS VECES AL D A active Not Available Not Available No t Available duloxetine 60 mg capsule,del ayed release TOME 1 C PSULA POR V A ORAL DOS VECES AL D A active Not Available Not Available No t Available pregabalin 25 mg capsule TOME 1 C PSULA POR V A ORAL DOS VECES AL D A EN LA MA HAYLEY AND EN LA NOCHE active Not Available Not Available No t Available pregabalin 75 mg capsule TAKE 1 CAPSULE BY MOUTH 3 TIMES A DAY FOR NEUROPATH IC PAIN active Not Available Not Available No t Available pregabalin 150 mg capsule TOME 1 C PSULA POR V A ORAL AL ACOSTARSE FOR CHRONIC PAIN active Not Available Not Available No t Available pregabalin 300 mg capsule TOME 1 C PSULA POR V A ORAL AL ACOSTARSE active Not Available Not Available No t Available Symbicort 160 mcg-4.5 mcg/actuati on HFA aerosol inhaler PLEASE SEE ATTACHED FOR DETAILED DIRECTION S active Not Available Not Available No t Available peg 3350-electr olytes 236 gram-22.74 gram-6.74 gram-5.86 gram solution active Not Available Not Available Not Available FreeStyle Lite Meter kit USE DIRECTED FOR DIABETES CARE 4 TIMES PER DAY (OR 3 TIMES A DAY IF COVERED BY INSURANCE ) active Not Available Not Available No t Available FreeStyle Lite Strips USE DIRECTED FOR DIABETES CARE 4 TIMES PER DAY (OR 3 TIMES PER DAY IF COVERED BY INSURANCE ) active Not Available Not Available No t Available ranolazine ER 1,000 mg tablet,exte nded release,12 hr TOME 1 TABLETA POR V A ORAL DOS VECES AL D A active Not Available Not Available No t Available Lactase Fast Acting 9,000 unit tablet active Not Available Not Available Not Available Gavilax 17 gram/dose oral powder DISSOLVE 17 GRAMS IN WATER AND TAKE BY MOUTH 3 TIMES DAILY NEEDED FOR CONSTIPAT ION FOR 14 DAYS active Not Available Not Available No t Available Myrbetriq 25 mg tablet,exte nded release 1 TABLET BY MOUTH DAILY,DO NOT CRUSH OR CHEW. FOR URGE INCONTINE NCE OF URINE. active Not Available Not Available No t Available Linzess 145 mcg capsule TOME 1 C PSULA POR V A ORAL TODOS LOS D 30 MINUTES BEFORE BREAKFAST ON EMPTY STOMACH active Not Available Not Available No t Available Jardiance 10 mg tablet active Not Available Not Available Not Available Humalog KwikPen U-200 Insulin 200 unit/mL (3 mL) subcutaneou s ADMINISTE R PER INSULIN SCALE (28-58) UP TO 3 TIMES DAILY. MAX DAILY DOSE 174 UNITS. active Not Available Not Available No t Available Humulin R U-500 (Conc) Insulin Kwikpen 500 unit/mL (3 mL) subcutaneou s INJECT 165 UNITS SUBCUTANE OUSLY PRIOR TO LUNCH, 155 UNITS PRIOR TO DINNER. MAX DAILY DOSE 320 UNITS 08/14 completed Not Available Not Available Not Available Evgeny Max U-300 SoloStar 300 unit/mL (3 mL) subcutaneou s insulin pen 200 UNITS DAILY. DO NOT TAKE WITH U500 INSULIN. TYPE 2 DIABETES. 30 DAY SUPPLY active Not Available Not Available No t Available FreeStyle Prateek 14 Day Sensor kit active Not Available Not Available Not Available BD Silvia 2nd Gen Pen Needle 32 gauge x 5/32 USE PEN NEEDLES TO INJECT INSULIN 2X A DAY, E11.9 active Not Available Not Available No t Available CeQur Simplicity 2 unit device TO USE DIRECTED BEFORE EACH MEAL- TO FOLLOW SLIDING SCALE PROVIDED. CHANGE PATCH EVERY 4 DAYS active Not Available Not Available No t Available Flowflex COVID-19 Antigen Home Test kit TO CHECK WHEN SYMPTOMAT IC OR EXPOSED TO COVID active Not Available Not Available No t Available Dexcom G7 Sensor device USE TO MONITOR GLUCOSE CHANGE EVERY 10 DAYS active Not Available Not Available No t Available Vitals Date Recorded Body height Body mass index (BMI) Body weight Provider Name and Address Organization Details Last Updated DateTime 08/14/2024 157.48 cm 33.8 kg/m2 91271.59 g Aisha Story [facility] 08/14/2024 10:31:39 Date Recorded Body height Body mass index (BMI) Body weight Provider Name and Address Organization Details Last Updated DateTime 09/02/2024 157.48 cm 33.8 kg/m2 64144.59 g Aissatou Sandhu [facility] 09/02/2024 13:32:09 Social History None recorded. Functional Status None recorded. Mental Status None recorded. Family History Nothing Reported. Medical History Condition Response Diabetes Y Arthritis Y Heart Trouble Y Nerve Disorders Y Heart Attack ([place]) Y Fibromyalgia Y Thyroid Problems Y Stroke Y Hypertension Y Cholesterol Y Gynecological HistoryNo gynecological history recorded. Obstetrics History GPAL:G 0 P 0 0 0 0 Past Encounters Encounter ID Performer Location Encounter Start Date Encounter Closed Date Diagnosis/Indication Diagnosis SNOMED-CT Code Diagnosis ICD10 Code Diagnosis Note [id number] YAQUELIN [facility] [address] [place] [address] 01/30/2024 08:18:57 02/19/2024 08:34:41 Pain of right hip joint 1904837040 96807 M25.551 Trochanter ic bursitis of left hip 8051574643 94404 M70.62 [id number] Eduard Cobos PA-C [facility] [address] [place] [address] 02/13/2024 08:25:33 03/11/2024 12:18:46 Pain of left knee joint 1075661881 55082 M25.562 Osteoarthr itis of knee 101412953 M17.9 [id number] Eduard Cobos PA-C [facility] [address] [place] [address] 08/14/2024 10:15:50 09/02/2024 14:05:06 Osteoarthritis of left knee joint 5145844011 04878 M17.12 [id number] Manny Dickey PA-C [facility] [address] [place] [address] 09/02/2024 13:26:14 09/11/2024 11:54:14 Pain of hip region 28516022 M25.552 Trochanter ic bursitis of left hip 0427623780 08871 M70.62 Osteoarthr itis of left hip joint 0686962004 53511 M16.12 [id number] Dejon Rodriguez, DPT [facility] [address] [place] [address] 10/17/2024 11:59:29 10/17/2024 12:56:25 Trochanteric bursitis of left hip 0695820992 49617 M70.62 Osteoarthr itis of left knee joint 0383586632 91533 M17.12 [id number] JUAN Coats [facility] [address] [place] [address] 10/22/2024 15:15:53 10/22/2024 16:22:49 Trochanteric bursitis of left hip 9948437659 23254 M70.62 Osteoarthr itis of left knee joint 2643865445 00181 M17.12 [id number] JUAN Coats PT [address] [place], [place] [address] 10/24/2024 15:12:39 10/24/2024 16:38:58 Trochanteric bursitis of left hip 1682233795 27863 M70.62 Osteoarthr itis of left knee joint 9096192514 54466 M17.12 Health Concerns Section Related Observation LastModified by Organization Detai ls LastModified Time None Recorded Concern Status LastModified by Organization Details LastModified Time None Recorded Advance Directives Directive None Recorded Payers Insurance Date Sequence Insurance Name Policy Number Policy Post Covered Member ID Post Member ID Guarantor Name 10/26/2024 1 [employer] (MEDICAID REPLACEMENT - HMO) [id number] Asia Josh [id number] Asia Josh Notes Date Note Type Note Provider Name and Address Organization Details Recorded Time 08/14/2024 text/html I am seeing the patient today under the supervision of Dr. Reaves who was available but who did not see the patient.HPI: Asia presents examination of her left knee. She is a 54-year-old female presenting diffuse pain to the medial and anterior aspect of the left knee. She denies any trauma or injury. Symptoms have been ongoing for at least 6 months. She went to an urgent care and x-ray since she had a tumor. She was previously seen by myself 4 years ago with diagnosis of left knee patellofemoral chondrosis/chondroma lacia. She denies any swelling, denies any instability, and denies any mechanical symptoms.Past family, medical, social history and review of systems has been reviewed, updated and is located in the patient s chart.PHYSICAL EXAMINATION: The patient is well appearing and in no apparent distress. Alert and oriented x3. Gait is symmetric.Right knee: ROM is full, stability intact both anterior, posterior, and varus/valgus stress at both 0 and 30 degrees of flexion. No meniscal tenderness. Negative Chika's maneuver. No crepitus,no effusion, 5/5 strength.Left knee: Range of motion is full, negative Arlene with no laxity to varus/valgus stress at both 0 and 30 degrees of flexion. Mild and diffuse medial joint line tenderness. Moderate diffuse peripatellar tenderness to palpate. Negative Chika's maneuver. No crepitus, no effusion, 5/5 strength.Peripheral, vascular, lymphatic examination, skin, neurological, coordination, reflexes, sensation are within normal limits.X-RAY REPORT: X-rays were ordered, obtained and reviewed today at [facility]. 4 views left knee obtained today. Mild PF arthrosis noted. Off the medial femoral condyle, appears to be an old osteochondroma. MRI interpreted independently reviewed at length today. MRI also demonstrates moderate patellofemoral medial compartment arthritis only with no ligamentous or meniscal pathology noted.IMPRESSION: Left knee PF arthrosisPLAN: Discussed conservative care to include therapy and oral NSAIDs. She is to follow-up with us as needed. Eduard Cobos PA-C [address] [place] [address] [address], [place], [address], [facility] - [facility] 08/14/2024 10:59:58 09/02/2024 text/html ROS as noted in the HPI I am seeing the patient today under the supervision of Dr. Estrella who was available but who did not see the patient. HPI:Patient is a 54-year-old female who presents to the office today for recheck of her left hip pain. Previously seen about 7 months ago and was diagnosed with mild asymptomatic left hip osteoarthritis as well as symptomatic trochanteric bursitis. At that time given prescription for meloxicam as well as physical therapy. Patient only tried the meloxicam which did not seem to provide her with significant relief. Has not tried any physical therapy. Continues to experience pain primarily on the lateral aspect of her left hip. Denies any groin pain. Increased pain with prolonged standing and walking as well as sleeping at night on her left side. No numbness or tingling of the left lower extremity. Past family, medical, social history and review of systems has been reviewed, updated and is located in the patient s chart. Examination: Well-appearing 54-year-old female in no acute distress. She is alert and oriented x 3. Ambulates with a symmetric gait. Examination of the left hip reveals no erythema, warmth, ecchymosis, swelling. There is tenderness to palpation over the lateral aspect of the hip primarily over the greater trochanter. Near full range of motion of the hip in all directions. Hip strength 5/5 against resistance in all directions. Negative ADIN test. Negative Stinchfield test. Calf is soft and nontender. 2 views of the left hip obtained and independently reviewed in the office today reveal degenerative changes primarily noted at the medial inferior aspect of the joint. There is subchondral sclerosis as well as mild osteophyte formation. No fracture. Impression:Asymptoma tic left hip osteoarthritis, symptomatic trochanteric bursitis left hip Plan:We discussed the role of conservative management including medications, physical therapy, injection.. At this point the patient was to proceed with injection. Please see procedure note. Provided with a prescription for outpatient physical therapy for her left hip. Can continue with anti-inflammatory medications as well as Tylenol as needed. Will continue to monitor symptoms. Ultimately if PT and this injection do not provide her with significant relief could try a possible intra-articular injection in the future to see if this will alleviate her symptoms. Patient agrees with this treatment plan. Follow-up as needed. All patient questions and concerns answered. Manny Dickey PA-C [address], [place], [address], [facility] 09/02/2024 14:21:04 10/17/2024 text/html Patient is a 54-year-old female who presents to the office today for recheck of her left hip and knee pain. Diagnosed with mild asymptomatic left hip osteoarthritis as well as symptomatic trochanteric bursitis. She was also diagnosed with PF OA by another PA at [facility]. She did get a lateral hip injection in August with mild relief. Continues to experience pain primarily on the lateral aspect of her left hip and knee. Patient states she has increased pain with prolonged standing and walking as well as sleeping at night on her left side. She states she has peripheral neuropathy in both her toes of both feet but denies any numbness or tingling in the rest of the LE. She states her knee pain is 8/10 at best and at worse, and denies any previous injuries. Patient states the pain is sometimes a burning sensation. She would like to get back to walking, and being able to stand without increasing pain and swelling. She is disabled and is not working. Dejon Rodriguez, DPT [address], [place], [address], [facility] 10/17/2024 12:53:23 10/22/2024 text/html Patient reports 7/10 pain in her left hip and knee today. States she has a stomach hernia that is bothering her more today and is increasing her overall pain and limiting her activities. 10min early Abi Gallagher, GAGE DESIGNER [address], [place], [address], [facility] 10/22/2024 16:22:16 10/24/2024 text/html Patient reports 0/10 pain in her left hip and knee today. States she felt better after last session. 10min early Abi Gallagher, GAGE DESIGNER [address], [place], [address], [facility] 10/24/2024 16:38:50 OBGyn Episode No OBEpisode recorded.
[2024-11-29 13:19] LABS: Appearance Urine Turbid; Glucose Urine UA >=1000 mg/dL (Negative); PH 5.5 (5.0-9.0); Specific Gravity - Urine >= 1.030 (1.005-1.025); UMIC TRIGGER UA YES
[2024-11-29 13:25] LABS: Anion Gap 15 (12-20); Blood Urea Nitrogen 17 mg/dL (9-16); Calcium 9.1 mg/dL (8.4-10.2); Carbon Dioxide 26 mmol/L (22-29); Chloride 103 mmol/L (96-108); Estimated Glomerular Filt Rate > 60; Magnesium 2.1 mg/dL (1.6-2.6); Potassium 4.8 mmol/L (3.3-5.1); Sodium 139 mmol/L (135-145)
[2024-11-29 13:37] LABS: Total Protein Urine Random 18 mg/dL (<12)
[2024-11-29 14:01] LABS: Parathyroid Hormone Intact 142.8 pg/mL (8.7-77.1)
== END 2024-11-29 11:09 | disposition home or self-care (01) ==
LOC: HO.HKASLDS 11:08
PROVIDERS: Visit Provider Internal Medicine Hypertension Specialist
DX: N20.0 Calculus of kidney (principal)
CPT/HCPCS: 36415; 80048; 81001; 81003; 82570; 83735; 83970; 84156

== ENCOUNTER 2024-12-04 10:07 | Outpatient (AMB) | payer OTHER, SELFPAY ==
[2024-12-04 10:27] VITALS: BP 102/64; PULSE 89; O2SAT 96; BMI 37.3
--- NOTE | 2024-12-04 10:27 | HO.NEPHOV_ITS ---
Vital Signs 12/04/24 10:27 Height 5 ft 2 in Weight 204 lb BMI 37.3 BP 102/64 Blood Pressure Location Lt brachial Position Sitting Pulse 89 Pulse Source Pulse Oximeter Pulse Oximetry (%) 96 Oxygen Delivery Method Room Air Intake Visit Reasons: 6mon follow-up w/labs Conf Automotive Buyer Required: No Accompanied by: Spouse Allergies dulaglutide Allergy (Verified 12/04/24 10:29) pancreatitis morphine Allergy (Verified 12/04/24 10:29) headache, nausea, vomiting metformin Adverse Reaction (Verified 12/04/24 10:29) Diarrhea Medication List - Last Reconciled 12/04/24 by Freedom Leiva MD albuterol sulfate mg inhalation amitriptyline mg PO amlodipine 2.5 mg PO DAILY aspirin (Adult Low Dose Aspirin) 81 mg PO DAILY atorvastatin 80 mg PO DAILY blood-glucose sensor (Eduora G7 Sensor device) As directed buspirone 30 mg PO BID carvedilol 25 mg PO BID celecoxib 200 mg PO DAILY PRN clopidogrel 75 mg PO DAILY duloxetine 120 mg PO DAILY escitalopram oxalate mg PO flash glucose sensor (OnepagerStyle Prateek 14 Day Sensor kit) As directed glipizide 10 mg PO DAILY insulin regular hum U-500 conc (Humulin R U-500 (Conc) Insulin Kwikpen) units subcut levothyroxine 88 mcg PO DAILY lidocaine 5% 1 patch topical DAILY linaclotide (Linzess) 145 mcg PO DAILY magnesium oxide 250 mg PO DAILY melatonin 3 mg PO BEDTIME metoclopramide HCl 5 mg PO QID nitroglycerin 0.4 mg sublingual DAILY pantoprazole 40 mg PO DAILY pregabalin 75 mg PO TID ranolazine ER 1,000 mg PO BID trazodone 50 mg PO BEDTIME valsartan mg PO HPI Comments Details: Asia is a pleasant middle-aged woman with a history of diabetes mellitus since 2004, referred for evaluation of proteinuria and renal cyst. Blood sugar has been suboptimally controlled. The last A1c was 10.2 back in June of 2022. She is waiting for a insulin pump in the next few weeks. She was seen by Urology recently for the renal cyst. MRi showed a cyst on the left kidney which is being evaluated. Routine workup revealed the dipstick positive proteinuria. She is on valsartan 80 mg the last few years. 06/05/24;Overall doing well. No new issues 12/04/24: Blood sugar is sub optimal [facility] Medical History delivery delivered Severe obesity (BMI 35.0-39.9) with comorbidity Recurrent incisional hernia Intraductal papilloma of right breast NSTEMI (non-ST elevated myocardial infarction) Insomnia Hypothyroid HTN (hypertension) HLD (hyperlipidemia) GERD (gastroesophageal reflux disease) Fibromyalgia Diabetes mellitus CVA (cerebral vascular accident) CTS (carpal tunnel syndrome) CAD (coronary artery disease) Surgical History History of hernia repair History of back surgery History of hysteroscopy S/P laparoscopy with lysis of adhesions History of total abdominal hysterectomy H/O heart surgery Stented coronary artery Social History Alcohol intake: former Patient Tobacco Use Status: Former Tobacco user Physical Exam Vital Signs: Last Vital Signs Pulse 89 12/04/24 10:27 BP 102/64 12/04/24 10:27 Pulse Ox 96 12/04/24 10:27 Oxygen Delivery Method Room Air 12/04/24 10:27 BMI result Body Mass Index 37.3 Const General: comfortable; No acute distress Orientation/consciousness: patient oriented x3 Eyes General: appearance normal, both eyes and all related structures Visual Leggett: normal visual leggett by confrontation Neck Neck: Yes supple and Yes no JVD Resp Effort & Inspection: normal respiratory effort and respiratory effort not decreased Auscultation: rhonchi Cardio Palpation: no palpable S3 and no palpable S4 Heart sounds: no rubs GI Inspection: Yes normal to inspection Palpation (GI): Soft to palpation Percussion: Yes normal to percussion Auscultation: normal bowel sounds General: Yes no CVA tenderness Back/Spine/Pelvis Back: no CVA tenderness Skin General skin exam: no petechiae and no purpura Neuro General: patient oriented x3 and no focal motor deficits Extrem General: No clubbing and No edema Results Reviewed Nephrology Results: Sodium, (135-145) 139 mmol/L 11/29/24 Potassium, (3.3-5.1) 4.8 mmol/L 11/29/24 Chloride, (96-108) 103 mmol/L 11/29/24 Carbon Dioxide, (22-29) 26 mmol/L 11/29/24 BUN, (9-16) 17 mg/dL H 11/29/24 Creatinine, (0.5-1.4) 0.69 mg/dL 11/29/24 Calcium, (8.4-10.2) 9.1 mg/dL 11/29/24 PTH Intact, (8.7-77.1) 142.8 pg/mL H 11/29/24 Urine Protein, (Neg-Trace) 30 (1+) mg/dL H 11/29/24 Urine Creatinine 188.70 mg/dL 11/29/24 Renal US 10/11/23 Assessment & Plan Assessment & Plan (1) Angiolipoma: Code(s): D17.9 - Benign lipomatous neoplasm, unspecified Category: Medical (2) Renal cyst: Code(s): N28.1 - Cyst of kidney, acquired Category: Medical (3) Renal mass: Code(s): N28.89 - Other specified disorders of kidney and ureter Category: Medical (4) Nephrolithiasis: Code(s): N20.0 - Calculus of kidney Category: Medical (5) Fibromyalgia: Code(s): M79.7 - Fibromyalgia Category: Medical (6) Proteinuria: Code(s): R80.9 - Proteinuria, unspecified Category: Medical Plan Middle-aged woman with a longstanding history of diabetes mellitus and obesity has minimal proteinuria. Minimal Proteinuria is most likely due to underlying diabetic kidney disease. Obesity could also be playing a role. The renal function stable with a serum creatinine 0.6 mg/dL. The goal is to slow the progression of renal disease. I have discussed importance of controlling blood sugar and to maintain hemoglobin A1c less than 7%. We also discussed weight loss and have encouraged her to increase her physical activity and to cut back on her carbohydrate intake. Follow urine for protein creatinine ratio. At this time the blood pressure seems well controlled. She should stay on a low-sodium diet. I would continue with the valsartan for renal protection and dose can be titrated upwards gradually based on the blood pressure. Renal cyst. Continue follow-up with Urology Mild hypomagnesemia Keep MgO 200 mg QD Orders: Orders Basic Metabolic Panel 6 Months R80.9 - Proteinuria, unspecified Creatinine Urine 6 Months R80.9 - Proteinuria, unspecified Total Protein Urine Random 6 Months R80.9 - Proteinuria, unspecified UA and rflx microscopic 6 Months R80.9 - Proteinuria, unspecified Coding Level of Care Code Est Pt Level 4 (76687) Diagnoses Angiolipoma D17.9 Renal cyst N28.1 Renal mass N28.89 Nephrolithiasis N20.0 Fibromyalgia M79.7 Proteinuria R80.9
--- OUTSIDE RECORDS SUMMARY | 2024-12-04 10:56 | XMS_ITS | Clinical Summary ---
Author Organization [facility] ([place], [place]) [employer] Address [address] [facility] [place] [address] Phone Care Team Providers Care Movie Operator Name Role Phone Justina Cabezas MD Primary Care Provider [phone] Allergies Active Allergy Reactions Criticality Noted Date [...] Problem Noted Date Diagnosed Date Vasospastic angina (CMS/[facility] V24) 08/07/2024 Assessment & Plan (08/26/2024 11:37 [...] was called and she will present to [facility] emergency room for further evaluation. Assessment [...] office visit and she was sent to [facility] emergency room for further evaluation. Encounters Date Type Department Care Team Description 11/14/2024 Telephone [facility]iology [facility] [address] [place] [address] Henrry Whittaker MD 11/14/2024 Telephone [facility] [address] [facility] [address] [place] [phone] Henrry Whittaker MD 09/26/2024 1:20 PM EDT Lab Draw Station - [address] [place] [phone] Coronary atherosclerosis of [place] coronary artery (Primary Dx); Essential hypertension, benign; Bilateral carotid artery occlusion; Atherosclerotic heart disease of [place] coronary artery without angina pectoris; Primary hypertension 09/26/2024 Telephone [facility]iology [facility] [address] [address] [place] [address] Henrry Whittaker MD from Last 3 Months Surgical History Surgery Date Site/Laterality Comments OTHER SURGICAL HISTORY PROCEDURE: HISTORY OTHER; COMMENT: RCA and LAD w/ left circumflex stent patent CARDIAC CATHETERIZATION 08/2018 PROCEDURE: HISTORICAL CARDIAC CATH OTHER SURGICAL HISTORY PROCEDURE: OH PATIENT HAS A CORONARY ARTERY STENT CARDIAC SURGERY 11/05/2017 PROCEDURE: HISTORICAL HEART SURGERY(ASD,VSD,VALVES) OTHER SURGICAL HISTORY 06/28/2017 PROCEDURE: HISTORICAL TOTAL HYSTERECTOMY W/O BSO OTHER SURGICAL HISTORY 06/08/2017 PROCEDURE: [place] LAPAROSCOPY W/LYSIS OF ADHESIONS OTHER SURGICAL HISTORY 08/17/2016 PROCEDURE: [place] ENDOSCOPY UPPER SMALL INTESTINE COLONOSCOPY 08/17/2016 PROCEDURE: HISTORICAL COLONOSCOPY BACK SURGERY 05/08/1989 PROCEDURE: HISTORICAL BACK SURGERY SECTION 1991 PROCEDURE: HISTORICAL DELIVERY SECTION 1993 PROCEDURE: HISTORICAL DELIVERY CARDIAC CATHETERIZATION DONE ON 09/19/2024 [facility] INDICATIONS: Chest pain. Medical History Medical History Date Comments Covid-19 DX:COVID-19 Asthma DX:Asthma CTS (carpal tunnel syndrome) DX: CTS (carpal tunnel syndrome) DM (diabetes mellitus) (CMS/ HCC V24, CMS/HCC V28) DX:DM (diabetes mellitus) (H CC) Fibromyalgia [...] Description 12/30/2024 12:40 PM EDT Office Visit [facility] [address] [place] [phone] Radha Foster NP [address] [place] [address] [place] [address] Health Maintenance Due Date Last Done Comments [...] 8:55 AM EDT [place] heart disease of [place] cor art w oth ang pctrs ([facility] V24) LIPID PANEL WITH REFLEX TO DIRECT LDL Routine 11/19/2024 8:55 AM EDT Athscl heart disease of [place] cor art w oth ang pctrs ([facility] V24) COMPREHENSIVE METABOLIC PANEL Routine 11/19/2024 8:55 AM EDT Coronary artery disease involving [place] coronary artery of [place] heart with other form of angina pectoris (CMS/[facility] V24) CBC WITH AUTO DIFFERENTIAL Routine 09/26/2024 1:20 PM EDT Atherosclerotic heart disease of [place] coronary artery without angina pectoris COMPREHENSIVE METABOLIC PANEL STAT 09/26/2024 1:20 PM EDT Primary hypertension PROTHROMBIN TIME WITH INR Routine 09/26/2024 1:20 PM EDT Atherosclerotic heart disease of [place] coronary artery without angina pectoris CBC AND DIFFERENTIAL Routine 09/26/2024 1:20 PM EDT Atherosclerotic heart disease of [place] coronary artery without angina pectoris MAGNESIUM Routine 09/26/2024 1:19 PM EDT Coronary atherosclerosis of [place] coronary artery Essential hypertension, benign Bilateral carotid artery occlusion LIPID PANEL WITH REFLEX TO DIRECT LDL Routine 09/26/2024 1:19 PM EDT Coronary atherosclerosis of [place] coronary artery Essential hypertension, benign Bilateral carotid artery occlusion BASIC METABOLIC PANEL Routine 09/24/2024 10:25 AM EDT from Last 3 Months Results * (ABNORMAL) Lipid panel with reflex to direct LDL (11/19/2024 8:55 AM EDT) Only the most recent of2 resultswithin the time period is included. Cholesterol 281(H) 0 - 200 mg/dL LAB CHEMISTRY METHOD 11/19/2024 12:47 PM EDT [facility] Triglycerides 526(H) 0 - 150 mg/dL LAB CHEMISTRY METHOD 11/19/2024 12:47 PM [facility] HDL 57 >=40 mg/dL LAB CHEMISTRY METHOD 11/19/2024 12:47 PM [facility] LDL Calculated LAB CHEMISTRY METHOD 11/19/2024 12:47 PM [facility] Comment: Unable to calculate when triglycerides >400 mg/dL. Triglyceride value is >= 500. Calculated LDL is not meaningful. Direct LDL has been added. VLDL Cholesterol [place] LAB CHEMISTRY METHOD 11/19/2024 12:47 PM [facility] Comment:Unable to calculate when triglycerides >400 mg/dL. Non HDL Chol. (LDL+VLDL) LAB CHEMISTRY METHOD 11/19/2024 12:47 PM T [facility] Comment:Unable to calculate when triglycerides >400 mg/dL. Chol/HDL Ratio 4.9(H) 0.0 - 4.4 LAB CHEMISTRY METHOD 11/19/2024 12:47 PM [facility] Blood Venous blood specimen / Unknown Venipuncture / Unknown 11/19/2024 8:55 AM EDT 11/19/2024 10:45 AM EDT Henrry Whittaker MD LAB BLOOD ORDERABLES F inal Result Performing Organization Address [facility]/ZIP Co de Phone Number [facility] [address] [place] [address], [place] [phone] * (ABNORMAL) LDL cholesterol, direct (11/19/2024 8:55 AM EDT) LDL Direct 168(H) <=100 mg/dL LAB CHEMISTRY METHOD 11/19/2024 12:59 PM EDT [facility] Blood Venous blood specimen / Unknown Venipuncture / Unknown 11/19/2024 8:55 AM EDT 11/19/2024 10:45 AM EDT Henrry Whittaker MD LAB BLOOD ORDERABLES F inal Result Performing Organization Address [facility]/ZIP Co de Phone Number [facility] [address] [place] [address], [place] [phone] * (ABNORMAL) Comprehensive metabolic panel (11/19/2024 8:55 AM EDT) Only the most recent of2 resultswithin the time period is included. [facility] Sodium 136 133 - 145 mmol/L LAB CHEMISTRY METHOD 11/19/2024 12:44 PM [facility] Potassium 4.0 3.5 - 5.5 mmol/L LAB CHEMISTRY METHOD 11/19/2024 12:44 PM [facility] Chloride 101 96 - 110 mmol/L LAB CHEMISTRY METHOD 11/19/2024 12:44 PM [facility] CO2 26 21 - 32 mmol/L LAB CHEMISTRY METHOD 11/19/2024 12:44 PM [facility] Anion Gap 9 3 - 11 LAB CHEMISTRY METHOD 11/19/2024 12:44 PM [facility] Glucose 252(H) 70 - 100 mg/dL LAB CHEMISTRY METHOD 11/19/2024 12:44 PM T [facility] BUN 9 5 - 25 mg/dL LAB CHEMISTRY METHOD 11/19/2024 12:44 PM [facility] Creatinine 0.62 0.50 - 1.10 mg/dL LAB CHEMISTRY METHOD 11/19/2024 12:44 PM [facility] eGFR 106 >=60 mL/min/1. 73m2 LAB CHEMISTRY METHOD 11/19/2024 12:44 PM [facility] Comment:Calculation based on the Chronic Kidney Disease Epidemiology Collaboration (CKD-EPI) equation refit without adjustment for race. BUN/Creatinine Ratio 14.5 LAB CHEMISTRY METHOD 11/19/2024 12:44 PM [facility] Calcium 8.8 8.5 - 10.5 mg/dL LAB CHEMISTRY METHOD 11/19/2024 12:44 PM [facility] AST (SGOT) 19 10 - 42 unit/L LAB CHEMISTRY METHOD 11/19/2024 12:44 PM [facility] ALT (SGPT) 32 10 - 60 unit/L LAB CHEMISTRY METHOD 11/19/2024 12:44 PM [facility] Alkaline Phosphatase 128(H) 42 - 121 unit/L LAB CHEMISTRY METHOD 11/19/2024 12:44 PM [facility] Total Protein 6.2 6.0 - 8.0 g/dL LAB CHEMISTRY METHOD 11/19/2024 12:44 PM [facility] Albumin 3.2 3.2 - 5.0 g/dL LAB CHEMISTRY METHOD 11/19/2024 12:44 PM [facility] Total Bilirubin 0.4 0.0 - 1.4 mg/dL LAB CHEMISTRY METHOD 11/19/2024 12:44 PM [facility] Blood Venous blood specimen / Unknown Venipuncture / Unknown 11/19/2024 8:55 AM EDT 11/19/2024 10:45 AM EDT Henrry Whittaker MD LAB BLOOD ORDERABLES F inal Result [facility] [address] [place] [address], * (ABNORMAL) CBC auto differential (09/26/2024 1:20 PM EDT) WBC 5.7 4.8 - 10.8 K/mcL LAB HEMETOLOGY METHOD 09/26/2024 1:46 PM EDT [facility] RBC 4.80 3.80 - 4.80 M/mcL LAB HEMETOLOGY METHOD 09/26/2024 1:46 PM EDT [facility] Hemoglobin 13.4 11.5 - 16.0 g/dL LAB HEMETOLOGY METHOD 09/26/2024 1:46 PM EDT [facility] Hematocrit 42.3 35.0 - 47.0 % LAB HEMETOLOGY METHOD 09/26/2024 1:46 PM EDT [facility] MCV 88.7 79.0 - 98.0 FL LAB HEMETOLOGY METHOD 09/26/2024 1:46 PM EDT [facility] MCH 28.1 27.0 - 32.0 pcg LAB HEMETOLOGY METHOD 09/26/2024 1:46 PM EDT [facility] MCHC 31.7(L) 32.0 - 37.0 g/dL LAB HEMETOLOGY METHOD 09/26/2024 1:46 PM EDT [facility] RDW 14.0 11.0 - 15.0 % LAB HEMETOLOGY METHOD 09/26/2024 1:46 PM EDT [facility] Platelets 253 130 - 400 K/mcL LAB HEMETOLOGY METHOD 09/26/2024 1:46 PM EDT [facility] MPV 10.2 7.0 - 11.0 FL LAB HEMETOLOGY METHOD 09/26/2024 1:46 PM EDT [facility] NRBC 0.0 <1.0 % LAB HEMETOLOGY METHOD 09/26/2024 1:46 PM [facility] NRBC Absolute 0.00 <0.10 K/mcL LAB HEMETOLOGY METHOD 09/26/2024 1:46 PM [facility] Neutrophils Relative 63.6 % LAB HEMETOLOGY METHOD 09/26/2024 1:46 PM [facility] Lymphocytes Relative 28.5 % LAB HEMETOLOGY METHOD 09/26/2024 1:46 PM [facility] Monocytes Relative 5.5 % LAB HEMETOLOGY METHOD 09/26/2024 1:46 PM [facility] Eosinophils Relative 1.8 % LAB HEMETOLOGY METHOD 09/26/2024 1:46 PM [facility] Basophils Relative 0.2 % LAB HEMETOLOGY METHOD 09/26/2024 1:46 PM [facility] Immature Granulocytes Relative 0.4 % LAB HEMETOLOGY METHOD 09/26/2024 1:46 PM [facility] Neutrophils Absolute 3.62 1.50 - 7.00 K/mcL LAB HEMETOLOGY METHOD 09/26/2024 1:46 PM [facility] Lymphocytes Absolute 1.62 1.00 - 5.00 K/mcL LAB HEMETOLOGY METHOD 09/26/2024 1:46 PM [facility] Monocytes Absolute 0.31 0.20 - 1.00 K/mcL LAB HEMETOLOGY METHOD 09/26/2024 1:46 PM [facility] Eosinophils Absolute 0.10 0.00 - 0.50 K/mcL LAB HEMETOLOGY METHOD 09/26/2024 1:46 PM [facility] Basophils Absolute 0.01 0.00 - 0.20 K/[facility] LAB HEMETOLOGY METHOD 09/26/2024 1:46 PM EDT [facility] Immature Granulocytes Absolute 0.02 0.00 - 0.03 K/[facility] LAB HEMETOLOGY METHOD 09/26/2024 1:46 PM EDT [facility] Blood Venous blood specimen / Unknown Venipuncture / Unknown 09/26/2024 1:20 PM EDT 09/26/2024 1:40 PM EDT Henrry Whittaker MD LAB BLOOD ORDERABLES F inal Result Performing Organization Address City/[facility]/ZIP Co de Phone Number [facility] [address] [place] [address], [place] [phone] * Prothrombin time with INR (09/26/2024 1:20 PM EDT) Protime 10.8 10.6 - 13.9 sec LAB COAGULATION METHOD 09/26/2024 2:10 PM EDT [facility] INR 0.9 LAB COAGULATION METHOD 09/26/2024 2:10 PM EDT [facility] Blood Venous blood specimen / Unknown Venipuncture / Unknown 09/26/2024 1:20 PM EDT 09/26/2024 1:40 PM EDT Henrry Whittaker MD LAB BLOOD ORDERABLES F inal Result Performing Organization Address City/[facility]/ZIP Co de Phone Number [facility] [address] [place] [address], [place] [phone] * (ABNORMAL) Magnesium (09/26/2024 1:19 PM EDT) Magnesium 1.7(L) 1.9 - 2.6 mg/dL LAB CHEMISTRY METHOD 09/26/2024 2:20 PM EDT [facility] Blood Venous blood specimen / Unknown Venipuncture / Unknown 09/26/2024 1:19 PM EDT 09/26/2024 1:40 PM EDT Melody Collins NP LAB BLOOD ORDERABLES Final Result [facility] ([facility]) [facility] [address] [place] [address], * (ABNORMAL) Basic metabolic panel (09/24/2024 10:25 AM EDT) [facility] Glucose 285(H) 70 - 99 mg/dL [facility] [...] - 09/25/2024 5:07 PM EDT Performed at: 01 - [facility] [address] [id number] [employer] Machine Setter: Lizzy Sharma MD, Phone: [phone] Henrry Whittaker MD LAB BLOOD ORDERABLES E dited Result - Final [facility] 1 from Last 3 Months Insurance [facility] MEDICA[facility] [employer] [address] [place] [address] Care Teams Movie Operator Relationship Specialty Start Date End Date Justina Cabezas MD [address] [place] [phone] PCP - General 04/24/23
== END 2024-12-04 10:39 | disposition home or self-care (01) ==
LOC: HO.HKAS 10:07
PROVIDERS: PCP Family Medicine; Visit Provider Internal Medicine Hypertension Specialist
DX: D17.9 Benign lipomatous neoplasm, unspecified (principal); N28.1 Cyst of kidney, acquired; N28.89 Other specified disorders of kidney and ureter; N20.0 Calculus of kidney; M79.7 Fibromyalgia; R80.9 Proteinuria, unspecified
CPT/HCPCS: 99214

== ENCOUNTER → 2024-12-04 10:07 | Outpatient (BNVA) | payer OTHER, SELFPAY | PROVIDERS: PCP Family Medicine; Visit Provider Internal Medicine Hypertension Specialist | DX: N28.1 Cyst of kidney, acquired (principal); D17.9 Benign lipomatous neoplasm, unspecified; N28.89 Other specified disorders of kidney and ureter; N20.0 Calculus of kidney; M79.7 Fibromyalgia; R80.9 Proteinuria, unspecified | CPT/HCPCS: 99212 ==

== ENCOUNTER 2025-01-15 12:30 | Outpatient (REF) | payer OTHER, SELFPAY ==
--- NOTE | ~2025-01-15 | US_ITS ---
EXAMINATION: US KIDNEY BILATERAL HISTORY: D17.9 - Benign lipomatous neoplasm, unspecified TECHNIQUE: Real-time grayscale ultrasound imaging of the kidneys was performed and images were reviewed. COMPARISON: Comparison is made with the prior examination dated 10/11/2023. FINDINGS: Right kidney: The right kidney measures 13.7 x 5.6 x 6.3 cm. Renal parenchymal echotexture and thickness are normal. Again seen is a 5 mm echogenic focus in the interpolar region, compatible with a small angiomyolipoma. There is no hydronephrosis or renal calculi. Left Kidney: The left kidney measures 11.9 x 5.0 x 5.3 cm. Renal parenchymal echotexture and thickness are normal. The complex cystic structure noted on MRI of the upper pole is not visualized. There is no hydronephrosis or renal calculi. US/US renal BI IMPRESSION: Stable 5 mm right renal angiomyolipoma. The cystic structure at the upper pole the left kidney noted on MRI is not identified. Electronically signed by: Ruben Grant MD 01/15/2025 01:53 PM EDT
--- OUTSIDE RECORDS SUMMARY | 2025-01-15 15:28 | XMS_ITS | Clinical Summary ---
Author Organization [facility] Address [address] [facility] [place] [address] Phone Care Team Providers Care Chin Strap Maker Name Role Phone Justina Cabezas MD Primary Care Provider + Allergies Active Allergy Reactions Criticality Noted Date [...] needed for chest pain. 100 tablet 1 4 Active pantoprazole (PROTONIX) 40 mg EC tablet [...] BY MOUTH ONCE DAILY 90 tablet 1 5 Active ranolazine (RANEXA) 1,000 mg 12 hr tablet TOME 1 TABLETA POR VIA ORAL DOS VECES AL XIMENA 180 tablet 1 5 Active ezetimibe (ZETIA) 10 mg tabletIndications:H yperlipidemia, unspecified hyperlipidemia type Take 1 tablet (10 mg total) by mouth 1 (one) time each day. 90 each 2 5 Active Active Problems Problem Noted Date Diagnosed Date Vasospastic angina (CMS/HCC V24) 08/07/2024 Assessment & Plan (08/26/2024 11:37 [...] was called and she will present to [facility] emergency room for further evaluation. Assessment & Plan (12/30/2024 2:21 PM EDT): Patient has a history of CAD status post stenting to her left circumflex in RCA in 2019. Recent left heart catheterization showing stents are patent. At this visit, she states she has not had recurrence of the chest discomfort. She has chronic shortness of breath on exertion which has remained unchanged. She continues on aspirin, amlodipine, carvedilol, Ranexa and atorvastatin. Zetia was added to her routine today due to elevated lipids. She was encouraged to continue with adding physical activity to her routine which she has begun doing so with walking. She was advised to follow a low-cholesterol, heart healthy diet. Patient advised to seek emergency medical attention by calling 911 if they were to develop severe dyspnea, chest pain that did not resolve with rest or nitroglycerin, or if they were to faint. Assessment & Plan (08/26/2024 11:37 AM EDT): [...] her next follow-up appointment. Assessment & Plan (12/30/2024 2:21 PM EDT): Most recent lipid panel showing elevated triglycerides, unable to assess LDL due to the elevated triglycerides. She is on atorvastatin 80 mg daily. We discussed today the addition of Zetia or a PCSK9 inhibitor. We decided, to begin with the addition of Zetia as well as increasing physical activity and working on following a low-cholesterol diet. We will recheck her lipid panel in 2 months. If it remains out of goal ranges at this point then we will consider the addition of a PCSK9 inhibitor. Orders: ezetimibe (ZETIA) 10 mg tablet; Take 1 tablet (10 mg total) by mouth 1 (one) time each day. Lipid panel with reflex to direct LDL; Future Assessment & Plan (08/26/2024 11:37 AM EDT): [...] in the emergency room. Assessment & Plan (12/30/2024 2:21 PM EDT): Blood pressure is well-controlled today, continue on current therapies. Assessment & Plan (08/26/2024 11:37 AM EDT): [...] office visit and she was sent to [facility] emergency room for further evaluation. Encounters Date Type Department Care Team Description 12/30/2024 12:40 PM EDT Office Visit [facility] [address] [place] [address] [address] [place] [address] Radha Foster NP Hyperlipidemia, unspecified hyperlipidemia type (Primary Dx); Coronary artery disease involving chippewa-cree coronary artery of chippewa-cree heart with other form of angina pectoris ([facility] V24); Primary hypertension 11/14/2024 Telephone [facility] [address] [facility] [address] [place] [address] Henrry Whittaker MD 11/14/2024 Telephone [facility] [address] [place] [address] Dr [address] [place] [address] Henrry Whittaker MD from Last 3 Months Surgical History Surgery Date Site/Laterality Comments OTHER SURGICAL HISTORY PROCEDURE: HISTORY OTHER; COMMENT: RCA and LAD w/ left circumflex stent patent CARDIAC CATHETERIZATION 08/2018 PROCEDURE: HISTORICAL CARDIAC CATH OTHER SURGICAL HISTORY PROCEDURE: IN PATIENT HAS A CORONARY ARTERY STENT CARDIAC SURGERY 11/05/2017 PROCEDURE: HISTORICAL HEART SURGERY(ASD,VSD,VALVES) OTHER SURGICAL HISTORY 06/28/2017 PROCEDURE: HISTORICAL TOTAL HYSTERECTOMY W/O BSO OTHER SURGICAL HISTORY 06/08/2017 PROCEDURE: IN LAPAROSCOPY W/LYSIS OF ADHESIONS OTHER SURGICAL HISTORY 08/17/2016 PROCEDURE: IN ENDOSCOPY UPPER SMALL INTESTINE COLONOSCOPY 08/17/2016 PROCEDURE: HISTORICAL COLONOSCOPY BACK SURGERY 05/08/1989 PROCEDURE: HISTORICAL BACK SURGERY SECTION 1991 PROCEDURE: HISTORICAL DELIVERY SECTION 1993 PROCEDURE: HISTORICAL DELIVERY CARDIAC CATHETERIZATION DONE ON 09/19/2024 [facility] [place] [facility] [place] INDICATIONS: Chest pain. Medical History Medical History Date Comments Covid-19 DX:COVID-19 Asthma DX:Asthma CTS (carpal tunnel syndrome) DX: CTS (carpal tunnel syndrome) DM (diabetes mellitus) (CMS/ [facility] V24, CMS/[facility] V28) DX:DM (diabetes mellitus) (H CC) Fibromyalgia [...] Cigarettes Q uit: 05/08/1997 Smokeless Tobacco: Former Tobacco Cessation:Counseling Given: Not Answered Alcohol Use Standard Drinks/Week Comments Not Currently 0 (1 standard drink = 0.6 oz pur e alcohol) Comments Unknown Sex and Gender Information Value Date Recorded Sex Assigned at Not on file Legal Sex Female 2:32 PM EST Gender Identity Not on file Sexual Orientation Not on file Obstetrics History Last Filed Vital Signs Vital Sign Reading Time Taken Comments Blood Pressure 128/70 12/30/2024 11:59 AM EDT Pulse 80 12/30/2024 11:59 AM EDT Temperature - - Respiratory Rate - - Oxygen Saturation 96% 12/30/2024 11:59 AM EDT Inhaled Oxygen Concentration - - Weight 92.5 kg (204 lb) 12/30/2024 11:59 AM EDT Height 157.5 cm (5' 2 ) 12/30/2024 11:59 AM EDT Body Mass Index 37.31 12/30/2024 11:59 AM EDT Plan of Treatment Health Maintenance Due Date Last Done Comments Breast Cancer Screening 1970 Hepatitis B Vaccines (1 of 3 - 19+ 3-dose series) 1989 Cervical Cancer Screening: Pap Smear 1991 Zoster Vaccines (1 of 2) 2020 Colorectal Cancer Screening: Colonoscopy 04/06/2022 HIV Screening 04/06/2022 Hepatitis C Screening 04/06/2022 Social Influencers of Health Screening 04/06/2022 Depression Screening 05/08/2024 COVID-19 Vaccine (3 - 2024- season) 2025 12/07/2020, 11/16/2020 Influenza Vaccine (#1) 2025 , 09/27/2021, 02/01/2020, Additional history exists Hypertension/CHF/CAD Annual BMP Blood Test 12/11/2025 12/11/2024, 11/19/2024, 09/26/2024, Additional history exists DTaP,Tdap,and Td Vaccines (2 [...] Procedure Name Priority Date/Time Associated Diagnosis Comments THYROID STIMULATING HORMONE Routine 12/11/2024 11:17 AM EDT Recurrent major depression in partial remission (CMS/HCC V24) MAGNESIUM Routine 12/11/2024 11:17 AM EDT Recurrent major depression in partial remission (CMS/HCC V24) THYROXINE FREE Routine 12/11/2024 11:17 AM EDT Recurrent major depression in partial remission (CMS/HCC V24) HAYLEY IFA WITH TITER AND PATTERN Routine 12/11/2024 11:17 AM EDT Recurrent major depression in partial remission ([facility]/HCC V24) SEDIMENTATION RATE Routine 12/11/2024 11 :17 AM EDT Recurrent major depression in partial remission (CMS/HCC V24) VITAMIN D 25 HYDROXY Routine 12/11/2024 11:17 AM EDT Recurrent major depression in partial remission (CMS/HCC V24) COMPREHENSIVE METABOLIC PANEL Routine 12/11/2024 11:17 AM EDT Recurrent major depression in partial remission ([facility]/HCC V24) LDL CHOLESTEROL, DIRECT Routine 11/19/2024 8:55 AM EDT Athscl heart disease of chippewa-cree cor art w oth ang pctrs ([facility]/HCC V24) LIPID PANEL WITH REFLEX TO DIRECT LDL Routine 11/19/2024 8:55 AM EDT Athscl heart disease of chippewa-cree cor art w oth ang pctrs ([facility]/HCC V24) COMPREHENSIVE METABOLIC PANEL Routine 11/19/2024 8:55 AM EDT Coronary artery disease involving chippewa-cree coronary artery of chippewa-cree heart with other form of angina pectoris (CMS/HCC V24) from Last 3 Months Results * HAYLEY IFA with titer and pattern (12/11/2024 11:17 AM EDT) HAYLEY Negative Negative 12/12/2024 12:15 PM EDT [facility] ([facility] Comment:HAYLEY performed by ind irect immunofluorescence (IFA) using HEp-2 substrate. Blood Venous blood specimen / Unknown Venipuncture / Unknown 12/11/2024 11:17 AM EDT 12/11/2024 11:41 AM EDT us Noam Castro MD LAB BLOOD ORDERABLES Final Re sult Performing Organization Address City/[facility]/ZIP Co de Phone Number [facility] [address] [place] [address], [place] [phone] * (ABNORMAL) Vitamin D 25 hydroxy (12/11/2024 11:17 AM EDT) Vit D, 25-Hydroxy 9.1(L) 30.0 - 80.0 ng/mL LAB CHEMISTRY METHOD 12/11/2024 2:38 PM EDT [facility] Blood Venous blood specimen / Unknown Venipuncture / Unknown 12/11/2024 11:17 AM EDT 12/11/2024 11:41 AM EDT us Noam Castro MD LAB BLOOD ORDERABLES Final Re sult Performing Organization Address [facility]/ZIP Co de Phone Number [facility] [address] [place] [address], [place] [phone] * Sedimentation rate (12/11/2024 11:17 AM EDT) Pathologist [facility] Sed Rate 5 0 - 30 mm/hr LAB HEMETOLOGY METHOD 12/11/2024 11:50 AM EDT [facility] Blood Venous blood specimen / Unknown Venipuncture / Unknown 12/11/2024 11:17 AM EDT 12/11/2024 11:42 AM EDT us Noam Castro MD LAB BLOOD ORDERABLES Final Re sult Performing Organization Address City/[facility]/ZIP Co de Phone Number [facility] [address] [place] [address], [place] [phone] * Thyroid stimulating hormone (12/11/2024 11:17 AM EDT) TSH 2.62 0.40 - 4.00 mcIU/mL LAB CHEMISTRY METHOD 12/11/2024 2:36 PM EDT [facility] Blood Venous blood specimen / Unknown Venipuncture / Unknown 12/11/2024 11:17 AM EDT 12/11/2024 11:41 AM EDT us Noam Castro MD LAB BLOOD ORDERABLES Final Re sult [facility] [address] [place] [address], [place] [phone] * Thyroxine free (12/11/2024 11:17 AM EDT) Free T4 1.26 0.70 - 1.80 ng/dL LAB CHEMISTRY METHOD 12/11/2024 2:36 PM EDT [facility] Blood Venous blood specimen / Unknown Venipuncture / Unknown 12/11/2024 11:17 AM EDT 12/11/2024 11:41 AM EDT us Noam Castro MD LAB BLOOD ORDERABLES Final Re sult [facility] [address] [place] [address], [place] [phone] * (ABNORMAL) Magnesium (12/11/2024 11:17 AM EDT) Magnesium 1.8(L) 1.9 - 2.6 mg/dL LAB CHEMISTRY METHOD 12/11/2024 12:44 PM EDT [facility] Blood Venous blood specimen / Unknown Venipuncture / Unknown 12/11/2024 11:17 AM EDT 12/11/2024 11:41 AM EDT us Noam Castro MD LAB BLOOD ORDERABLES Final Re sult [facility] [address] [place] [address], * (ABNORMAL) Comprehensive metabolic panel (12/11/2024 11:17 AM EDT) Only the most recent of2 resultswithin the time period is included. Sodium 138 133 - 145 mmol/L LAB CHEMISTRY METHOD 12/11/2024 12:55 PM [facility] Potassium 4.0 3.5 - 5.5 mmol/L LAB CHEMISTRY METHOD 12/11/2024 12:55 PM [facility] Chloride 105 96 - 110 mmol/L LAB CHEMISTRY METHOD 12/11/2024 12:55 PM [facility] CO2 27 21 - 32 mmol/L LAB CHEMISTRY METHOD 12/11/2024 12:55 PM [facility] Anion Gap 6 3 - 11 LAB CHEMISTRY METHOD 12/11/2024 12:55 PM [facility] Glucose 246(H) 70 - 100 mg/dL LAB CHEMISTRY METHOD 12/11/2024 12:55 PM [facility] BUN 11 5 - 25 mg/dL LAB CHEMISTRY METHOD 12/11/2024 12:55 PM [facility] Creatinine 0.71 0.50 - 1.10 mg/dL LAB CHEMISTRY METHOD 12/11/2024 12:55 PM [facility] eGFR 101 >=60 mL/min/1. 73m2 LAB CHEMISTRY METHOD 12/11/2024 12:55 PM [facility] Comment:Calculation based on the Chronic Kidney Disease Epidemiology Collaboration (CKD-EPI) equation refit without adjustment for race. BUN/Creatinine Ratio 15.5 LAB CHEMISTRY METHOD 12/11/2024 12:55 PM [facility] Calcium 8.9 8.5 - 10.5 mg/dL LAB CHEMISTRY METHOD 12/11/2024 12:[facility] AST (SGOT) 26 10 - 42 unit/L LAB CHEMISTRY METHOD 12/11/2024 12:55 PM [facility] ALT (SGPT) 34 10 - 60 unit/L LAB CHEMISTRY METHOD 12/11/2024 12:55 PM [facility] Alkaline Phosphatase 127(H) 42 - 121 unit/L LAB CHEMISTRY METHOD 12/11/2024 12:55 PM [facility] Total Protein 6.2 6.0 - 8.0 g/dL LAB CHEMISTRY METHOD 12/11/2024 12:55 PM [facility] Albumin 3.3 3.2 - 5.0 g/dL LAB CHEMISTRY METHOD 12/11/2024 12:55 PM [facility] Total Bilirubin 0.3 0.0 - 1.4 mg/dL LAB CHEMISTRY METHOD 12/11/2024 12:55 PM [facility] Blood Venous blood specimen / Unknown Venipuncture / Unknown 12/11/2024 11:17 AM EDT 12/11/2024 11:41 AM EDT Noam Castro MD LAB BLOOD ORDERABLES Final Re sult [facility] [address] [place] [address], * (ABNORMAL) Lipid panel with reflex to direct LDL (11/19/2024 8:55 AM EDT) Cholesterol 281(H) 0 - 200 mg/dL LAB CHEMISTRY METHOD 11/19/2024 12:47 PM [facility] Triglycerides 526(H) 0 - 150 mg/dL LAB CHEMISTRY METHOD 11/19/2024 12:47 PM [facility] HDL 57 >=40 mg/dL LAB CHEMISTRY METHOD 11/19/2024 12:47 PM EDT [facility] LDL Calculated LAB CHEMISTRY METHOD 11/19/2024 12:47 PM EDT [facility] Comment: Unable to calculate when triglycerides >400 mg/dL. Triglyceride value is >= 500. Calculated LDL is not meaningful. Direct LDL has been added. VLDL Cholesterol [place] LAB CHEMISTRY METHOD 11/19/2024 12:47 PM EDT [facility] Comment:Unable to calculate when triglycerides >400 mg/dL. Non HDL Chol. (LDL+VLDL) LAB CHEMISTRY METHOD 11/19/2024 12:47 PM EDT [facility] Comment:Unable to calculate when triglycerides >400 mg/dL. Chol/HDL Ratio 4.9(H) 0.0 - 4.4 LAB CHEMISTRY METHOD 11/19/2024 12:47 PM EDT [facility] Blood Venous blood specimen / Unknown Venipuncture / Unknown 11/19/2024 8:55 AM EDT 11/19/2024 10:45 AM EDT us Henrry Whittaker MD LAB BLOOD ORDERABLES F inal Result Performing Organization Address City/[facility]/ZIP Co de Phone Number [facility] [address] [place] [address], * (ABNORMAL) LDL cholesterol, direct (11/19/2024 8:55 AM EDT) LDL Direct 168(H) <=100 mg/dL LAB CHEMISTRY METHOD 11/19/2024 12:59 PM EDT [facility] Blood Venous blood specimen / Unknown Venipuncture / Unknown 11/19/2024 8:55 AM EDT 11/19/2024 10:45 AM EDT us Henrry Whittaker MD LAB BLOOD ORDERABLES F inal Result [facility] [address] [place] [address], from Last 3 Months Insurance [facility] MEDICAID [employer]AGE Care Teams Chin Strap Maker Relationship Specialty Start Date End Date Justina Cabezas MD [address] [place] [phone] PCP - General 04/24/23
== END 2025-01-15 12:31 | disposition home or self-care (01) ==
LOC: HO.US 12:30
PROVIDERS: PCP Family Medicine; Visit Provider Nurse Practitioner Family
DX: D17.9 Benign lipomatous neoplasm, unspecified (principal); N28.89 Other specified disorders of kidney and ureter; N28.1 Cyst of kidney, acquired
CPT/HCPCS: 76775

== ENCOUNTER → 2025-01-15 12:31 | Outpatient (BNV) | payer OTHER, SELFPAY | PROVIDERS: PCP Family Medicine; Visit Provider Radiology Diagnostic Radiology | DX: D17.71 Benign lipomatous neoplasm of kidney (principal) | CPT/HCPCS: 76775 ==

== ENCOUNTER 2025-01-29 13:27 | Outpatient (AMB) | payer OTHER, SELFPAY ==
--- NOTE | 2025-01-29 13:34 | MHC.OFFVIS ---
Intake Visit Reasons: 6m/US Intake Note: Patient is present for 6M/US Urology Medication:NONE Antibiotic Allergy:NONE Blood Thinner:ASPIRIN Train Brake Operator Required: No Train Brake Operator Name: Daniel [id number] Allergies dulaglutide Allergy (Verified 01/29/25 14:19) pancreatitis morphine Allergy (Verified 01/29/25 14:19) headache, nausea, vomiting metformin Adverse Reaction (Verified 01/29/25 14:19) Diarrhea Medication List - Last Reconciled 01/29/25 by GORDON Sousa- albuterol sulfate mg inhalation amitriptyline mg PO amlodipine 2.5 mg PO DAILY aspirin (Adult Low Dose Aspirin) 81 mg PO DAILY atorvastatin 80 mg PO DAILY blood-glucose sensor (MobiMagic G7 Sensor device) As directed buspirone 30 mg PO BID carvedilol 25 mg PO BID celecoxib 200 mg PO DAILY PRN clopidogrel 75 mg PO DAILY duloxetine 120 mg PO DAILY escitalopram oxalate mg PO flash glucose sensor (FreeStyle Prateek 14 Day Sensor kit) As directed insulin regular hum U-500 conc (Humulin R U-500 (Conc) Insulin Kwikpen) units subcut levothyroxine 88 mcg PO DAILY lidocaine 5% 1 patch topical DAILY linaclotide (Linzess) 145 mcg PO DAILY magnesium oxide 250 mg PO DAILY metoclopramide HCl 5 mg PO QID nitroglycerin 0.4 mg sublingual DAILY pantoprazole 40 mg PO DAILY pregabalin 75 mg PO TID ranolazine ER 1,000 mg PO BID trazodone 50 mg PO BEDTIME valsartan mg PO HPI Comments Details: Asia is a pleasant 54 year old female patient of Dr. Cabezas who was accompanied by her significant other at today's office visit. She has a past medical history of obesity, recurrent incisional hernias, NSTEMI, insomnia, hypothyroidism, hypertension, hyperlipidemia, GERD, fibromyalgia, diabetes, CVA, coronary artery disease, and carpal tunnel syndrome. She presents to the office today for follow-up of her renal cyst. In discussion with the patient today she reports to be doing and feeling well. She denies having had any bothersome urinary issues or concerns since her last office visit here. Recent renal imaging results reviewed with the patient today. 01/30 stable 5 mm right renal angiolipoma. The cystic structure at the upper pole of the left kidney noted on MRI is not identified on renal imaging. Previous imaging: MRI renal mass protocol 07/30 findings consistent with a 2 mm right renal angiolipoma. 1.3 cm Bosniak 2 F lesion at the upper pole of the left kidney which recommendations per radiology report is continued follow-up. Previous workup has included CT as well as renal ultrasound: CT 12/29 noting area of concern in the right kidney appears to be a 5 mm hypodensity which is likely a small angiolipoma but because of its tiny size and partial volume averaging, this diagnosis can not be made with certainty. There is a 1.8 cm mass in the left kidney which is not really visible on the contrast imaging. This likely represents a complex cyst. Renal ultrasound 10/29 noted 0.6 cm echogenic focus in the cortex of the medial mid right kidney which may represent a small angiolipoma. Normal appearance of left kidney. 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 She otherwise denies any bothersome urinary issues or concerns. She denies urinary urgency, urinary frequency, incontinence, nocturia, hematuria, dysuria, foul smelling urine, changes to urinary stream, fever, and or chills. She is happy with her current voiding parameters. Discussed at length renal cysts classification and importance of surveillance monitoring. She discusses continuing to follow-up with PCP and endocrinology regarding her uncontrolled diabetes. She otherwise offers no other issues or concerns at this time. FORMERLY [facility], 1928–1983 Medical History delivery delivered Severe obesity (BMI 35.0-39.9) with comorbidity Recurrent incisional hernia Intraductal papilloma of right breast NSTEMI (non-ST elevated myocardial infarction) Insomnia Hypothyroid HTN (hypertension) HLD (hyperlipidemia) GERD (gastroesophageal reflux disease) Fibromyalgia Diabetes mellitus CVA (cerebral vascular accident) CTS (carpal tunnel syndrome) CAD (coronary artery disease) Surgical History History of hernia repair History of back surgery History of hysteroscopy S/P laparoscopy with lysis of adhesions History of total abdominal hysterectomy H/O heart surgery Stented coronary artery Social History Alcohol intake: former Patient Tobacco Use Status: Former Tobacco user Review of Systems Eyes Reports no additional complaints ENT Reports no additional complaints Card Reports as per [facility] Resp Reports no additional complaints GI Reports as per [facility] Reports as per [facility] Musc Reports as per [facility] Neuro Reports as per [facility] Psych Reports no additional complaints Endo Reports as per [facility] Physical Exam Const General: cooperative, healthy appearing, comfortable, no acute distress, well developed, alert and awake Nutritional Appearance: overweight Orientation/consciousness: patient oriented x3 Limitations: no limitations HEENT Head: Yes normal to inspection, Yes normocephalic and Yes atraumatic Ears: hearing grossly normal bilaterally Eyes General: appearance normal, both eyes and all related structures Neck Neck: Yes normal visual inspection and Yes trachea midline Chest Chest palpation & inspection: normal inspection of the chest Resp Effort & Inspection: normal respiratory effort and able to speak in complete sentences Cardio Rate: regular rate GI Inspection: Yes normal to inspection General: Yes no CVA tenderness Back/Spine/Pelvis Back: no CVA tenderness Skin General skin exam: no rashes or lesions noted Neuro General: patient oriented x3 Extrem General: Yes normal to inspection Psych Appearance: grossly normal and well kempt Mental Status: mental status grossly normal Speech and movement: Normal speech and movement present and Clear speech present Affect: normal affect Attitude: cooperative Thought process: Normal thought process present Thought content: Normal thought content present Insight: Fair insight present (Psych) Judgement: Fair judgement present (Psych) Results Reviewed Results Reviewed: Date of Service: 01/15/25 Procedure(s): US renal BI FINDINGS: Right kidney: The right kidney measures 13.7 x 5.6 x 6.3 cm. Renal parenchymal echotexture and thickness are normal. Again seen is a 5 mm echogenic focus in the interpolar region, compatible with a small angiomyolipoma. There is no hydronephrosis or renal calculi. Left Kidney: The left kidney measures 11.9 x 5.0 x 5.3 cm. Renal parenchymal echotexture and thickness are normal. The complex cystic structure noted on MRI of the upper pole is not visualized. There is no hydronephrosis or renal calculi. IMPRESSION: Stable 5 mm right renal angiomyolipoma. The cystic structure at the upper pole the left kidney noted on MRI is not identified. Assessment & Plan Assessment & Plan (1) Angiolipoma: Code(s): D17.9 - Benign lipomatous neoplasm, unspecified Category: Medical (2) Renal mass: Code(s): N28.89 - Other specified disorders of kidney and ureter Category: Medical (3) Renal cyst: Code(s): N28.1 - Cyst of kidney, acquired Category: Medical Plan In office urinalysis results reviewed with the patient today; as noted above. We discussed importance of management of diabetes for overall health and well-being. Recent imaging results reviewed with the patient today; as noted above. We discussed importance of surveillance monitoring. Patient currently denies any bothersome urinary issues or concerns. She reports be happy with current voiding parameters. Will obtain renal ultrasound in 1 year Follow-up in 1 year with imaging to be completed prior; or sooner with any issues, concerns, and or questions. Orders: Orders AMB Urinalysis Automated Today Z13.9 - Encounter for screening, unspecified US renal BI 1 Year N20.0 - Calculus of kidney, N28.1 - Cyst of kidney, acquired, N28.89 - Other specified disorders of kidney and ureter Patient Instructions: The patient had an opportunity to ask questions regarding the treatment plan. All questions were answered. Physical exam, labs, and imaging were discussed and reviewed in detail. As well as risks, benefits, and discussion of treatment choices. No major barriers to understanding were identified. The patient expressed understanding and agreement with the above treatment plan. The patient was made aware they should contact our office by phone for worsening of their current condition, the appearance of new symptoms, or with any questions or concerns. Compliance is encouraged with any medications and follow up testing that is ordered. It is a privilege to be allowed the opportunity to participate in? your urological care.? Again, if you have any questions or concerns If you have any questions or concerns please do not hesitate to contact me. The office is [phone]. This note is constructed using voice recognition software. While every effort has been made to ensure accuracy police communications dispatcher errors may have been included. Yours sincerely, ELVIS Sousa Coding Level of Care Code Est Pt Level 3 (80736) Complex EM visit Add On G2211 Diagnoses Angiolipoma D17.9 Renal mass N28.89 Renal cyst N28.1
--- OUTSIDE RECORDS SUMMARY | 2025-01-29 15:53 | XMS_ITS | Clinical Summary ---
Author Organization [facility] Twitch Address [address] [facility] [place] [address] Phone Care Team Providers Care News Videographer Name Role Phone Justina Cabezas MD Primary [...] was called and she will present to [facility] emergency room for further evaluation. Assessment [...] office visit and she was sent to [facility] emergency room for further evaluation. 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 ([facility] V24); Primary hypertension 11/14/2024 Telephone [facility] Dr [facility] [facility] [address] [place] [address] Henrry Whittaker MD 11/14/2024 Telephone [facility] [address] [place] [address] Dr [address] [place] [address] Henrry Whittaker MD from Last 3 Months Surgical History Surgery Date Site/Laterality Comments OTHER SURGICAL HISTORY PROCEDURE: HISTORY OTHER; COMMENT: RCA and LAD w/ left circumflex stent patent CARDIAC CATHETERIZATION 08/2018 PROCEDURE: HISTORICAL CARDIAC CATH OTHER SURGICAL HISTORY PROCEDURE: [facility] PATIENT HAS A CORONARY ARTERY STENT CARDIAC SURGERY 11/05/2017 PROCEDURE: HISTORICAL HEART SURGERY(ASD,VSD,VALVES) OTHER SURGICAL HISTORY 06/28/2017 PROCEDURE: HISTORICAL TOTAL HYSTERECTOMY W/O BSO OTHER SURGICAL HISTORY 06/08/2017 PROCEDURE: [facility] LAPAROSCOPY W/LYSIS OF ADHESIONS OTHER SURGICAL HISTORY 08/17/2016 PROCEDURE: [facility] ENDOSCOPY UPPER SMALL INTESTINE COLONOSCOPY 08/17/2016 PROCEDURE: HISTORICAL COLONOSCOPY BACK SURGERY 05/08/1989 PROCEDURE: HISTORICAL BACK SURGERY SECTION 1991 PROCEDURE: HISTORICAL DELIVERY SECTION 1993 PROCEDURE: HISTORICAL DELIVERY CARDIAC CATHETERIZATION DONE ON 09/19/2024 [facility] INDICATIONS: Chest pain. Medical History Medical History Date Comments Covid-19 DX:COVID-19 Asthma DX:Asthma CTS (carpal tunnel syndrome) DX: CTS (carpal tunnel syndrome) DM (diabetes mellitus) (CMS/ [facility] V24, CMS/[facility] V28) DX:DM (diabetes mellitus) (H CC) Fibromyalgia [...] 11/19/2029 11/19/2024, 11/19/2024, 09/26/2024, Additional history exists RSV Immunization Adult Patients (1 - 1-dose 75+ series) 2045 Pneumococcal Vaccine: 50+ Years Completed 12/26/2023, 07/19/2017 [...] EDT Recurrent major depression in partial remission ([facility]/HCC V24) MAGNESIUM Routine 12/11/2024 11:17 AM EDT Recurrent major depression in partial remission ([facility]/HCC V24) THYROXINE FREE Routine 12/11/2024 11:17 AM EDT Recurrent major depression in partial remission (CMS/HCC V24) HAYLEY IFA WITH TITER AND PATTERN Routine 12/11/2024 11:17 AM EDT Recurrent major depression in partial remission ([facility]/HCC V24) SEDIMENTATION RATE Routine 12/11/2024 11 :17 AM EDT Recurrent major depression in partial remission ([facility]/H[facility] V24) VITAMIN D 25 HYDROXY Routine 12/11/2024 11:17 AM EDT Recurrent major depression in partial remission ([facility]/HCC V24) COMPREHENSIVE METABOLIC PANEL Routine 12/11/2024 11:17 AM EDT Recurrent major depression in partial remission ([facility]/HCC V24) LDL CHOLESTEROL, DIRECT Routine 11/19/2024 8:55 AM EDT 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 ([facility]/HCC V24) LIPID PANEL WITH REFLEX TO DIRECT LDL Routine 11/19/2024 8:55 AM EDT 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 Blood Venous blood specimen / Unknown Venipuncture / Unknown 12/11/2024 11:17 AM EDT 12/11/2024 11:41 AM EDT us Noam Castro MD LAB BLOOD ORDERABLES Final Re sult Performing Organization Address [facility]/ZIP Co de Phone Number [facility] [address] [place] [address], [place] [phone] * (ABNORMAL) Vitamin D 25 hydroxy (12/11/2024 11:17 AM EDT) Pathologist [facility] Vit D, 25-Hydroxy 9.1(L) 30.0 - 80.0 ng/mL LAB CHEMISTRY METHOD 12/11/2024 2:38 PM EDT [facility] Blood Venous blood specimen / Unknown Venipuncture / Unknown 12/11/2024 11:17 AM EDT 12/11/2024 11:41 AM EDT us Noam Castro MD LAB BLOOD ORDERABLES Final Re sult Performing Organization Address [facility] de Phone Number [facility] [address] [place] [address], [place] [phone] * Sedimentation rate (12/11/2024 11:17 AM EDT) Pathologist [facility] Sed Rate 5 0 - 30 mm/hr LAB HEMETOLOGY METHOD 12/11/2024 11:50 AM EDT [facility] Blood Venous blood specimen / Unknown Venipuncture / Unknown 12/11/2024 11:17 AM EDT 12/11/2024 11:42 AM EDT us Noam Castro MD LAB BLOOD ORDERABLES Final Re sult Performing Organization Address City/[facility]/ZIP Co de Phone Number [facility] [address] [place] [address], [place] [phone] * Thyroid stimulating hormone (12/11/2024 11:17 AM EDT) TSH 2.62 0.40 - 4.00 mcIU/mL LAB CHEMISTRY METHOD 12/11/2024 2:36 PM EDT [facility] Blood Venous blood specimen / Unknown Venipuncture / Unknown 12/11/2024 11:17 AM EDT 12/11/2024 11:41 AM EDT us Noam Castro MD LAB BLOOD ORDERABLES Final Re sult [facility] [address] [place] [address], [place] [phone] * Thyroxine free (12/11/2024 11:17 AM EDT) Free T4 1.26 0.70 - 1.80 ng/dL LAB CHEMISTRY METHOD 12/11/2024 2:36 PM EDT [facility] Blood Venous blood specimen / Unknown Venipuncture / Unknown 12/11/2024 11:17 AM EDT 12/11/2024 11:41 AM EDT us Noam Castro MD LAB BLOOD ORDERABLES Final Re sult [facility] [address] [place] [address], [place] [phone] * (ABNORMAL) Magnesium (12/11/2024 11:17 AM EDT) Magnesium 1.8(L) 1.9 - 2.6 mg/dL LAB CHEMISTRY METHOD 12/11/2024 12:44 PM EDT [facility] Blood Venous blood specimen / Unknown Venipuncture / Unknown 12/11/2024 11:17 AM EDT 12/11/2024 11:41 AM EDT us Noam Castro MD LAB BLOOD ORDERABLES Final Re sult [facility] [address] [place] [address], [place] [phone] * (ABNORMAL) Comprehensive metabolic panel (12/11/2024 11:17 AM EDT) Only the most recent of2 resultswithin the time period is included. Sodium 138 133 - 145 mmol/L LAB CHEMISTRY METHOD 12/11/2024 12:55 PM [facility] Potassium 4.0 3.5 - 5.5 mmol/L LAB CHEMISTRY METHOD 12/11/2024 12:55 PM [facility] Chloride 105 96 - 110 mmol/L LAB CHEMISTRY METHOD 12/11/2024 12:55 PM [facility] CO2 27 21 - 32 mmol/L LAB CHEMISTRY METHOD 12/11/2024 12:55 PM [facility] Anion Gap 6 3 - 11 LAB CHEMISTRY METHOD 12/11/2024 12:55 PM [facility] Glucose 246(H) 70 - 100 mg/dL LAB CHEMISTRY METHOD 12/11/2024 12:55 PM [facility] BUN 11 5 - 25 mg/dL LAB CHEMISTRY METHOD 12/11/2024 12:55 PM [facility] Creatinine 0.71 0.50 - 1.10 mg/dL LAB CHEMISTRY METHOD 12/11/2024 12:55 PM [facility] eGFR 101 >=60 mL/min/1. 73m2 LAB CHEMISTRY METHOD 12/11/2024 12:55 PM [facility] Comment:Calculation based on the Chronic Kidney Disease Epidemiology Collaboration (CKD-EPI) equation refit without adjustment for race. BUN/Creatinine Ratio 15.5 LAB CHEMISTRY METHOD 12/11/2024 12:55 PM EDT [facility] Calcium 8.9 8.5 - 10.5 mg/dL LAB CHEMISTRY METHOD 12/11/2024 12:55 PM T [facility] AST (SGOT) 26 10 - 42 unit/L LAB CHEMISTRY METHOD 12/11/2024 12:55 PM [facility] ALT (SGPT) 34 10 - 60 unit/L LAB CHEMISTRY METHOD 12/11/2024 12:55 PM [facility] Alkaline Phosphatase 127(H) 42 - 121 unit/L LAB CHEMISTRY METHOD 12/11/2024 12:55 PM [facility] Total Protein 6.2 6.0 - 8.0 g/dL LAB CHEMISTRY METHOD 12/11/2024 12:55 PM [facility] Albumin 3.3 3.2 - 5.0 g/dL LAB CHEMISTRY METHOD 12/11/2024 12:55 PM [facility] Total Bilirubin 0.3 0.0 - 1.4 mg/dL LAB CHEMISTRY METHOD 12/11/2024 12:55 PM [facility] Blood Venous blood specimen / Unknown Venipuncture / Unknown 12/11/2024 11:17 AM EDT 12/11/2024 11:41 AM EDT Noam Castro MD LAB BLOOD ORDERABLES Final Re sult [facility] [address] [place] [address], * (ABNORMAL) Lipid panel with reflex to direct LDL (11/19/2024 8:55 AM EDT) Cholesterol 281(H) 0 - 200 mg/dL LAB CHEMISTRY METHOD 11/19/2024 12:47 PM [facility] Triglycerides 526(H) 0 - 150 mg/dL LAB CHEMISTRY METHOD 11/19/2024 12:47 PM EDT [facility] HDL 57 >=40 mg/dL LAB CHEMISTRY METHOD 11/19/2024 12:47 PM EDT [facility] LDL Calculated LAB CHEMISTRY METHOD 11/19/2024 12:47 PM EDT [facility] Comment: Unable to calculate when triglycerides >400 mg/dL. Triglyceride value is >= 500. Calculated LDL is not meaningful. Direct LDL has been added. VLDL Cholesterol [place] LAB CHEMISTRY METHOD 11/19/2024 12:47 PM EDT [facility] Comment:Unable to calculate when triglycerides >400 mg/dL. Non HDL Chol. (LDL+VLDL) LAB CHEMISTRY METHOD 11/19/2024 12:47 PM EDT [facility] Comment:Unable to calculate when triglycerides >400 mg/dL. Chol/HDL Ratio 4.9(H) 0.0 - 4.4 LAB CHEMISTRY METHOD 11/19/2024 12:47 PM EDT [facility] Blood Venous blood specimen / Unknown Venipuncture / Unknown 11/19/2024 8:55 AM EDT 11/19/2024 10:45 AM EDT us Henrry Whittaker MD LAB BLOOD ORDERABLES F inal Result [facility] [address] [place] [address], * (ABNORMAL) LDL cholesterol, direct (11/19/2024 8:55 AM EDT) LDL Direct 168(H) <=100 mg/dL LAB CHEMISTRY METHOD 11/19/2024 12:59 PM EDT [facility] Blood Venous blood specimen / Unknown Venipuncture / Unknown 11/19/2024 8:55 AM EDT 11/19/2024 10:45 AM EDT us Henrry Whittaker MD LAB BLOOD ORDERABLES F inal Result [facility] [address] [place] [address], from Last 3 Months Insurance [facility] MEDICAID ADVANTAGE Care Teams News Videographer Relationship Specialty Start Date End Date Justina Cabezas MD [address] [place] [id number] PCP - General 04/24/23
== END 2025-01-29 14:39 | disposition home or self-care (01) ==
LOC: HO.HUSH 13:28
PROVIDERS: PCP Family Medicine; Visit Provider Nurse Practitioner Family
DX: D17.9 Benign lipomatous neoplasm, unspecified (principal); N28.89 Other specified disorders of kidney and ureter; N28.1 Cyst of kidney, acquired
CPT/HCPCS: 99213; G2211

== ENCOUNTER → 2025-01-29 13:27 | Outpatient (BNVA) | payer OTHER, SELFPAY | PROVIDERS: PCP Family Medicine; Visit Provider Nurse Practitioner Family | DX: N28.1 Cyst of kidney, acquired (principal); N20.0 Calculus of kidney; N28.89 Other specified disorders of kidney and ureter; D17.71 Benign lipomatous neoplasm of kidney; Z13.9 Encounter for screening, unspecified | CPT/HCPCS: 99212 ==